=== PATIENT | female | born 1960 | race Caucasian/White ===

== ENCOUNTER 2020-10-04 10:19 | Outpatient (REF) | payer BC, SELFPAY ==
[2020-10-04 14:08] LABS: MANUAL DIFF FLAG NO
[2020-10-04 14:16] LABS: Basophils Percent Auto 0.5 % (0-2); Eosinophils Absolute Auto 0.3 X10*3/uL (0.0-0.4); Eosinophils Percent Auto 3.1 % (0-4); Hematocrit 41.3 % (37-47); Hemoglobin 13.1 g/dl (12.0-16.0); Imm Gran Abs Auto 0.04 X10*3/uL (0.00-0.03); Imm Gran Pct Auto 0.5 % (0.0-0.4); Lymphocytes Absolute Auto 2.4 X10*3/uL (1.2-4.9); Lymphocytes Percent Auto 28.7 % (20-40); Mean Corpuscular HGB Conc 31.7 g/dl (31.0-35.0); Mean Platelet Volume 9.1 fL (9.4-12.3); Monocytes Absolute Auto 0.6 X10*3/uL (0.1-1.2); Neutrophils Percent Auto 60.2 % (45-73); Platelet Count 386 X10*3/uL (160-400); Red Blood Count 4.86 X10*6/uL (4.20-5.50); Red Cell Distribution Width 14.2 % (11.0-16.0); White Blood Count 8.4 X10*3/uL (4.8-10.8)
[2020-10-04 14:51] LABS: Alanine Aminotransferase 16 U/L (0-31); Albumin Level 4.3 g/dL (3.5-5.0); Alkaline Phosphatase 87 U/L (39-117); Anion Gap 12 (12-20); Aspartate Amino Transferase 15 U/L (5-31); Bilirubin Total 0.4 mg/dL (0.0-1.0); Blood Urea Nitrogen 15 mg/dL (9-16); Calcium 9.2 mg/dL (8.4-10.2); Carbon Dioxide 32 mmol/L (22-29); Chloride 104 mmol/L (96-108); Cholesterol 168 mg/dL; Estimated Glomerular Filt Rate > 60; Glucose Fasting 94 mg/dL (60-99); HDL Cholesterol 35 mg/dL; LDL Cholesterol Calculated 83 mg/dl; Potassium 4.2 mmol/l (3.3-5.1); Sodium 144 mmol/L (135-145); Total Protein 7.2 g/dL (6.5-8.0); Triglycerides 254 mg/dL
[2020-10-04 14:54] LABS: TSH reflex Free T4 0.95 mIU/mL (0.32-4.0); Vitamin D 25-OH Total 44.2 ng/mL (>30)
[2020-10-04 15:08] LABS: Estimated Average Glucose 120 mg/dL; Hemoglobin A1c % 5.8 %
[2020-10-04 15:36] LABS: Folate 18.6 ng/mL (> or = 4.0); Vitamin B12 375 pg/mL (200-900)
== END 2020-10-04 10:20 | disposition home or self-care (01) ==
LOC: HO.HMGCLDS 10:19
PROVIDERS: PCP Internal Medicine; Visit Provider Internal Medicine
DX: R06.02 Shortness of breath (principal); R00.2 Palpitations; R73.01 Impaired fasting glucose; E78.1 Pure hyperglyceridemia; I10 Essential (primary) hypertension
CPT/HCPCS: 36415; 80053; 80061; 82306; 82607; 82746; 83036; 84443; 85025

== ENCOUNTER → 2020-11-21 12:50 | Outpatient (REF) | payer BC, SELFPAY ==
--- NOTE | 2020-11-21 12:54 | ECG_ITS ---
Hook-up date: 2020-11-21 13:07:00 Duration: 43:03:00 Test Indications: PALPITATIONS Medications: 386162 QRS complexes 15 Ventricular ectopics which represent <1 % of total QRS comp. 1 Supraventricular ectopics which represent <1 % of total QRS comp. * Paced QRS complexs which represent % of total QRS comp. VENTRICULAR ECTOPY 15 Isolated 0 Bigeminal Cycles 0 Couplets 0 Runs 0 Beats in Runs * Beats LONGEST at * BPM at :: -- * Beats FASTEST at * BPM at :: -- SUPRAVENTRICULAR ECTOPY 1 Isolated 0 Couplets 0 Runs 0 Beats in Runs * Beats LONGEST at * BPM at :: -- * Beats FASTEST at * BPM at :: -- HEART RATES 67 MIN at 05:41:58 2020-11-22 107 AVG 161 MAX at 10:07:34 2020-11-22 LONGEST RR 1.3920 secs at 05:40:21 2020-11-22 S-T LEVELS Channel 1 - 128 mm at 13:07:00 2020-11-21 - 128 mm at 13:07:00 2020-11-21 Channel 2 - 128 mm at 13:07:00 2020-11-21 - 128 mm at 13:07:00 2020-11-21 Channel 3 - 128 mm at 03:22:61 -- - 128 mm at 03:22:61 Underlying rhythm is sinus with an average rate of 107/min; range 67-161/min; About 70% of the time, ventricular rate >100/min; Very rare PVCs; Racing , winded , tired in patient diary associated with sinus tachycardia. Referred By: Olesya Fairbanks Overread By: BRIANNA GARCÍA
== END ==
LOC: HO.CARD 12:50
PROVIDERS: PCP Internal Medicine; Visit Provider Internal Medicine
DX: R06.02 Shortness of breath (principal); R00.2 Palpitations
CPT/HCPCS: 93225; 93226

== ENCOUNTER 2021-04-05 08:47 | Outpatient (REF) | payer BC, SELFPAY ==
[2021-04-05 11:54] LABS: Cholesterol 173 mg/dL; HDL Cholesterol 32 mg/dL; LDL Cholesterol Calculated 90 mg/dl; Triglycerides 258 mg/dL
== END 2021-04-05 08:48 | disposition home or self-care (01) ==
LOC: HO.HMGCLDS 08:47
PROVIDERS: PCP Internal Medicine; Visit Provider Internal Medicine
DX: E78.1 Pure hyperglyceridemia (principal)
CPT/HCPCS: 36415; 80061

== ENCOUNTER 2021-09-14 11:03 | Outpatient (REF) | payer BC, SELFPAY ==
[2021-09-14 12:50] LABS: Alanine Aminotransferase 21 U/L (0-31); Anion Gap 8 (12-20); Aspartate Amino Transferase 17 U/L (5-31); Blood Urea Nitrogen 17 mg/dL (9-16); Calcium 9.4 mg/dL (8.4-10.2); Carbon Dioxide 30 mmol/L (22-29); Chloride 109 mmol/L (96-108); Cholesterol 163 mg/dL; Estimated Glomerular Filt Rate > 60; Glucose Fasting 103 mg/dL (60-99); HDL Cholesterol 32 mg/dL; LDL Cholesterol Calculated 91 mg/dl; Potassium 4.4 mmol/L (3.3-5.1); Sodium 143 mmol/L (135-145); Triglycerides 203 mg/dL
[2021-09-14 13:01] LABS: Vitamin D 25-OH Total 42.6 ng/mL (>30)
== END 2021-09-14 11:04 | disposition home or self-care (01) ==
LOC: HO.HMGCLDS 11:03
PROVIDERS: PCP Internal Medicine; Visit Provider Internal Medicine
DX: E66.01 Morbid (severe) obesity due to excess calories (principal); R73.01 Impaired fasting glucose; E78.1 Pure hyperglyceridemia; I10 Essential (primary) hypertension
CPT/HCPCS: 36415; 80048; 80061; 82306; 84450; 84460

== ENCOUNTER 2021-09-19 10:18 | Outpatient (REF) | payer BC, SELFPAY ==
[2021-09-25 03:12] LABS: HPV mRNA E6/E7 rflx Not Detected (Not Detected)
== END 2021-09-19 10:19 | disposition home or self-care (01) ==
LOC: HO.HMGCLDS 10:18
PROVIDERS: Internal Medicine; Visit Provider Internal Medicine
DX: Z01.419 Encounter for gynecological examination (general) (routine) without abnormal findings (principal); Z11.51 Encounter for screening for human papillomavirus (HPV); Z20.822 Contact with and (suspected) exposure to COVID-19
CPT/HCPCS: 87624; 88142; C9803; U0003; U0005

== ENCOUNTER → 2022-08-14 12:42 | Outpatient (REF) | payer BC, SELFPAY | LOC: HO.SL 12:42 | PROVIDERS: PCP Internal Medicine; Visit Provider Nurse Practitioner Family | DX: Z13.89 Encounter for screening for other disorder (principal) ==

== ENCOUNTER → 2022-08-27 09:02 | Outpatient (REF) | payer BC, SELFPAY | LOC: HO.SL 09:02 | PROVIDERS: PCP Internal Medicine; Visit Provider Nurse Practitioner Family | DX: G47.33 Obstructive sleep apnea (adult) (pediatric) (principal); R40.0 Somnolence; I10 Essential (primary) hypertension; Z99.89 Dependence on other enabling machines and devices | CPT/HCPCS: 95806 ==

== ENCOUNTER → 2022-11-18 20:30 | Outpatient (REF) | payer BC, SELFPAY | LOC: HO.SL 20:30 | PROVIDERS: PCP Internal Medicine; Visit Provider Nurse Practitioner Family | DX: G47.33 Obstructive sleep apnea (adult) (pediatric) (principal); Z99.89 Dependence on other enabling machines and devices | CPT/HCPCS: 95811 ==

== ENCOUNTER → 2022-12-03 09:33 | Outpatient (BNVA) | payer BC, SELFPAY | PROVIDERS: PCP Internal Medicine; Visit Provider Nurse Practitioner Family | DX: Z13.89 Encounter for screening for other disorder (principal) ==

== ENCOUNTER → 2023-03-04 08:55 | Outpatient (BNVA) | payer BC, SELFPAY | PROVIDERS: PCP Internal Medicine; Visit Provider Nurse Practitioner Family ==

== ENCOUNTER 2023-07-30 11:34 | Outpatient (AMB) | payer BC, SELFPAY ==
[2023-07-30 11:58] VITALS: BP 148/90; PULSE 93; O2SAT 97; BMI 43.2
--- NOTE | 2023-07-30 11:58 | MHC.PC.OV ---
Vital Signs 07/30/23 11:58 Height 5 ft 2 in Weight 236 lb BMI 43.2 BP 148/90 H Blood Pressure Location Lt brachial Position Sitting Pulse 93 Pulse Source Pulse Oximeter Pulse Oximetry (%) 97 Oxygen Delivery Method Room Air Intake Visit Reasons: BP check Intake Note: pt is here for a BP check she has been with out BP medications pt has not been seen since 12/04 Allergies No Known Allergies Allergy (Mild, Verified 11/05/23 02:33) NONE Medication List - Last Reconciled 07/30/23 by Olesya Fairbanks MD cholecalciferol (vitamin D3) 50 mcg PO DAILY cyclosporine 0.05% (Restasis) 1 drp ophthalmic (eye) BID glucosamine HCl 500 mg PO DAILY lisinopril 20 mg PO DAILY loratadine 10 mg PO DAILY meloxicam mg PO omeprazole 20 mg PO QAM tizanidine 2 mg PO TID Tobacco use date assessed: 07/30/23 Dental Screening Dental Screen Date: 07/30/23 Did you have a dental visit in the last 12 months?: Yes Did you have a dental problem in the last 6 months where you did not have access to dental care?: No Was dental information given to patient?: Patient has dentist HPI BP check HPI Details 63-year-old lady here today for follow-up. She has hypertension, previously was on metoprolol succinate ER 100 mg mg daily but ran out of her medication for several months now. She denies any acute chest pain, no headache, no dizziness or shortness of breath PFSH Medical History Trigger thumb of right hand Varicose veins of right lower extremity with pain Morbid obesity Patellofemoral arthritis Rotator cuff tear, right Left carpal tunnel syndrome Gallstone pancreatitis Impaired fasting glucose Hypertriglyceridemia DENYS on CPAP GERD (gastroesophageal reflux disease) Essential hypertension Surgical History History of carpal tunnel surgery History of arthroscopy of right shoulder H/O medial meniscus repair of right knee History of right hip replacement H/O colonoscopy History of cholecystectomy Family History Father Multiple sclerosis Alzheimer disease Diabetes Congestive heart failure Mother Breast cancer Ovarian cancer Hypertension Maternal Aunt Breast cancer Maternal Grandmother Breast cancer Daughter Mental health disorder History of fundoplication Social History Housing: House Alcohol intake: never Patient Tobacco Use Status: Never used Tobacco e-Cigarette/Vaping Use: Never Used Second Hand Smoke Exposure: No service: No Current occupational status: employed 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 Stevan Winston, Mari Wallis, Rusty Griffin and colleagues, with an educational erica from [employer]. Review of Systems Const Reports as per HPI Eyes Denies change in vision ENT Reports Normal hearing present, Denies dizziness, Denies nasal congestion, Denies tinnitus, Denies sinus pain, Denies sinus pressure and Denies sore throat Card Denies chest pain with activity, Denies irregular heart rhythm and Denies radiating jaw, neck or arm pain Resp Denies cough and Denies pain on inspiration GI Denies abdominal pain, Denies bloating, Denies heartburn and Denies nausea Reports no additional complaints Musc Denies myalgias, Denies arthralgias, Denies joint swelling and Denies muscle weakness Neuro Reports Normal hearing present, Denies dizziness, Denies lack of coordination, Denies focal weakness and Denies Sensory deficit (Neuro) Psych Denies anxiety, Denies depression, Denies irritability and Denies panic attacks Endo Denies polyphagia and Denies polydipsia Félix/Lymph Denies easy bleeding and Denies easy bruising Physical exam (Primary Care) Vital Signs: Last Vital Signs Pulse 93 07/30/23 11:58 BP 148/90 H 07/30/23 11:58 Pulse Ox 97 07/30/23 11:58 Oxygen Delivery Method Room Air 07/30/23 11:58 BMI result Body Mass Index 43.2 BMI Assessment/Plan discussion: High BMI High, discussed plan: lifestyle Tobacco/Smoking Status: Tobacco use Status Tobacco use date assessed 07/30/23 07/30/23 12:05 Patient Tobacco Use Status Never used Tobacco 07/30/23 12:01 e-Cigarette/Vaping Use Never Used 07/30/23 12:01 Thrive Assessment: Date of Thrive Assessment Date Thrive assessed 09/19/21 07/30/23 12:01 Const General: no acute distress, alert and awake Nutritional Appearance: obese morbidly obese Orientation/consciousness: patient oriented x3 Eyes General: appearance normal, both eyes and all related structures Neck Neck: Yes full ROM, Yes no lymphadenopathy and Yes supple Thyroid: Thyroid normal Resp Auscultation: clear to auscultation bilaterally Cardio Palpation: normal PMI Rate: regular rate Rhythm: regular rhythm Heart sounds: S1 normal heart sound present and S2 normal heart sound present GI Inspection: Yes normal to inspection and Yes Abdominal panniculus present Auscultation: normal bowel sounds Neuro General: patient oriented x3, gait normal, tone normal, moves all extremities, Normal light touch and pain sensation and no focal motor deficits Cranial nerves: Yes Normal hearing present Sensory Exam: No Sensory deficit (Neuro) Extrem General: Yes full ROM and Yes no joint enlargement Assessment and Plan Assessment & Plan (1) Essential hypertension: Code(s): I10 - Essential (primary) hypertension Plan: Refill prescription sent for metoprolol succinate 100 mg 1 daily, and added lisinopril 20 mg once a day . Fasting labs ordered to check basic metabolic panel lipid panel. Reinforced importance of following a low-salt diet and getting regular exercise. Return to clinic in 2 weeks to check blood pressure Orders: Orders Basic Metabolic Panel Fasting 07/30/23 E78.1 - Pure hyperglyceridemia, I10 - Essential (primary) hypertension Lipid Panel 07/30/23 E78.1 - Pure hyperglyceridemia, I10 - Essential (primary) hypertension Medications: New lisinopril 20 mg PO DAILY Changed From metoprolol succinate ER schedule PCP appt for future refills 100 mg PO DAILY 90 tabs 0RF R00.2 - Palpitations, I10 - Essential (primary) hypertension To metoprolol succinate ER 100 mg PO DAILY 90 tabs 1RF R00.2 - Palpitations, I10 - Essential (primary) hypertension Coding Level of Care Code Est Pt Level 3 (41070) Diagnoses Essential hypertension I10
== END 2023-07-30 14:34 | disposition home or self-care (01) ==
PROVIDERS: PCP Internal Medicine; Visit Provider Internal Medicine
DX: I10 Essential (primary) hypertension (principal)
CPT/HCPCS: 99213

== ENCOUNTER 2023-08-13 09:56 | Outpatient (AMB) | payer BC, SELFPAY ==
[2023-08-13 11:05] VITALS: BP 148/72; PULSE 93; O2SAT 96
--- NOTE | 2023-08-13 11:05 | AM.OFFVISNUR ---
Intake Vital Signs 08/13/23 11:05 08/13/23 11:18 BP 148/72 H 142/70 H Blood Pressure Location Rt brachial Lt brachial Position Sitting Sitting Pulse 93 Pulse Source Pulse Oximeter Pulse Oximetry (%) 96 Oxygen Delivery Method Room Air Intake Visit Reasons: BP Check Intake Note: Pt is here today for a B/P check and a flu vaccine Allergies No Known Allergies Allergy (Mild, Verified 07/30/23 12:15) NONE Office Procedures Flu Questionnaire Does the patient have a severe egg allergy?: No Does the patient have severe life threatening allergies?: No Does the patient have a fever or illness today?: No Has the patient ever had Guillain-[place] Syndrome?: No Has the patient ever had any past reaction to a flu shot?: No Immunizations flu vacc [id number] 6mos up(PF) 60 mcg(15 mcgx4)/0.5 mL IM syringe Performing Provider: Olesya Fairbanks MD [facility] Administered by: Keily Rao CMA on 08/13/23 11:16 Dose Route Admin Location Dispensed Lot Number Expiration Date NDC Cloth Beamer 0.5 mL IM Left Deltoid 0.5 mL [id number] 03/14/24 [id number] [employer] VIS Given Date VIS Provided VIS Publication Date 08/13/23 Single Vaccine 21 Eligibility Eligibility Date Funding Source Not [facility] Eligible 08/13/23 Private Coding Assessment & Plan Assessment & Plan Orders: Orders Influenza [id number] Immunization Today Z23 - Encounter for immunization
[2023-08-13 11:18] VITALS: BP 142/70
== END 2023-08-13 11:51 | disposition home or self-care (01) ==
PROVIDERS: PCP Internal Medicine; Visit Provider Internal Medicine
DX: Z23 Encounter for immunization (principal)
CPT/HCPCS: 90471; 90686

== ENCOUNTER 2023-09-29 12:58 | Outpatient (AMB) | payer BC, SELFPAY ==
[2023-09-29 13:58] VITALS: BP 150/100; PULSE 86; TEMP 36.3; O2SAT 96
--- NOTE | 2023-09-29 13:58 | AM.OFFWIN_ITS ---
Intake Vital Signs 09/29/23 13:58 Height 5 ft 2 in BMI Reason not done Patient refused/unable BP 150/100 H Blood Pressure Location Lt brachial Position Sitting Pulse 86 Pulse Source Pulse Oximeter Temp 97.3 F Temp Source Temporal Artery Scan Pulse Oximetry (%) 96 Oxygen Delivery Method Room Air Intake Visit Reasons: EST/sinus infection ([phone]) Intake Note: pt is here for c.o possible sinus infection, sinus pressure with greenish phelm 1 week Patient Tobacco Use Status: Never used Tobacco Allergies No Known Allergies Allergy (Mild, Verified 09/29/23 13:59) NONE Do you need a note to return to daycare/school/sports/work: No HPI HPI Comments History of Present Illness Details 63-year-old female history of GERD, hypo thyroidism, obesity, DENYS on CPAP, hypertension presenting for evaluation of fatigue, malaise, sinus pressure, congestion, patient reports she is having yellow/green discharge from her nose and she feels like she has having a sinus infection. Patient has history of this in the past and it feels similar. Denies chest pain, shortness breath, fevers chills, cough, nausea, vomiting, abdominal pain, diarrhea. Physical exam significant for Discomfort to face with forward bending and discomfort palpation of facial sinuses History and physical exam concerning for sinusitis is most likely. Other differentials include viral illness flu versus COVID versus RSV. Unlikely meningitis, encephalitis, intracranial hemorrhage, stroke, posterior stroke, pneumonia, PE, ACS. Plan at this time will discharge on Augmentin, prednisone. Educated patient on diagnosis and treatment plan, answered all question, patient verbalizes understanding. At this time patient will be discharged home, advised to return with new or worsening symptoms. Educated on worrisome signs and symptoms and when to return. At this time I feel comfortable discharge home. [facility] Medical History Trigger thumb of right hand Varicose veins of right lower extremity with pain Morbid obesity Patellofemoral arthritis Rotator cuff tear, right Left carpal tunnel syndrome Gallstone pancreatitis Impaired fasting glucose Hypertriglyceridemia DENYS on CPAP GERD (gastroesophageal reflux disease) Essential hypertension Surgical History History of carpal tunnel surgery History of arthroscopy of right shoulder H/O medial meniscus repair of right knee History of right hip replacement H/O colonoscopy History of cholecystectomy Family History Father Multiple sclerosis Alzheimer disease Diabetes Congestive heart failure Mother Breast cancer Ovarian cancer Hypertension Maternal Aunt Breast cancer Maternal Grandmother Breast cancer Daughter Mental health disorder History of fundoplication Social History Housing: House Alcohol intake: never Patient Tobacco Use Status: Never used Tobacco e-Cigarette/Vaping Use: Never Used Second Hand Smoke Exposure: No service: No Current occupational status: employed 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 Oriented X3.? No acute distress.? Head: Normocephalic, atraumatic, no step-offs or deformities. Discomfort to face with forward bending and discomfort palpation of facial sinuses Eyes: Pupils equal, round and reactive to light.?? Neck: Normal inspection.? Neck supple.? CVS: Normal heart rate and rhythm.? Pulses normal.? Respiratory: No respiratory distress.? Breath sounds normal.? Abdomen: Soft and nontender.? Skin: Skin warm and dry.? Normal skin color.? Normal skin turgor.? Extremities: No lower extremity edema.? No calf ttp. 5/5 strength to bilateral upper and lower extremities Neuro: Oriented X 3.? No motor deficit.? No sensory deficit. CN 2-12 intact Assessment & Plan Assessment & Plan (1) Sinusitis: Code(s): J32.9 - Chronic sinusitis, unspecified Plan Take your medications as prescribed. If you were prescribed antibiotics today, it is important that you take your medication to their entirety, do not skip any doses, do not finish them early. Follow-up with your primary care provider this week. Return to the emergency department with new or worsening symptoms. Such as fevers, chills, chest pain, shortness of breath, nausea, vomiting, dizziness, headache, vision changes, lethargy In case of emergency call 911 Medications: New amoxicillin-pot clavulanate 875-125 mg 1 tab PO BID 20 tabs 0RF 10 days prednisone 40 mg (2 x 20 mg) PO DAILY 10 tabs 0RF 5 days Coding Level of Care Code Est Pt Level 3 (34010) Diagnoses Sinusitis J32.9
== END 2023-09-29 14:12 | disposition home or self-care (01) ==
PROVIDERS: PCP Internal Medicine; Visit Provider Physician Assistant
DX: J32.9 Chronic sinusitis, unspecified (principal)
CPT/HCPCS: 99213

== ENCOUNTER 2023-11-08 09:31 | Outpatient (REF) | payer BC, SELFPAY ==
[2023-11-08 11:22] LABS: Estimated Average Glucose 140 mg/dL; Hemoglobin A1c % 6.5 % (<6.0)
[2023-11-08 11:43] LABS: Anion Gap 15 (12-20); Blood Urea Nitrogen 13 mg/dL (9-16); Calcium 9.2 mg/dL (8.4-10.2); Carbon Dioxide 27 mmol/L (22-29); Chloride 105 mmol/L (96-108); Cholesterol 207 mg/dL (<200); Estimated Glomerular Filt Rate > 60; Glucose Fasting 106 mg/dL (60-99); HDL Cholesterol 32 mg/dL (>40); Potassium 4.6 mmol/L (3.3-5.1); Sodium 142 mmol/L (135-145); Triglycerides 410 mg/dL (<150)
== END 2023-11-08 09:32 | disposition home or self-care (01) ==
LOC: HO.HMGCLDS 09:31
PROVIDERS: PCP Internal Medicine; Visit Provider Internal Medicine
DX: E78.1 Pure hyperglyceridemia (principal); I10 Essential (primary) hypertension; R73.01 Impaired fasting glucose
CPT/HCPCS: 36415; 80048; 80061; 83036

== ENCOUNTER 2023-11-12 08:30 | Outpatient (AMB) | payer BC, SELFPAY ==
[2023-11-12 08:33] VITALS: BP 110/70; PULSE 84; O2SAT 98; BMI 43.0
--- NOTE | 2023-11-12 08:33 | A.OFFPC_ITS ---
Vital Signs 11/12/23 08:33 Height 5 ft 2 in Weight 235 lb BMI 43.0 BP 110/70 Blood Pressure Location Rt brachial Position Sitting Pulse 84 Pulse Source Pulse Oximeter Pulse Oximetry (%) 98 Oxygen Delivery Method Room Air Intake Visit Reasons: Annual PE - due for Colorectal Cancer Screening Intake Note: Pt is here today for her PE:last mammogram 07/30/22, papsmear 09/20/21, colonoscopy 07/26/15' Pt wants to wait another year for her papsmear Allergies No Known Allergies Allergy (Mild, Verified 11/12/23 08:49) NONE Medication List - Last Reconciled 11/12/23 by Olesya Fairbanks MD cholecalciferol (vitamin D3) 50 mcg PO DAILY cyclosporine 0.05% (Restasis) 1 drp ophthalmic (eye) DAILY hydrochlorothiazide 12.5 mg PO QAM lisinopril 20 mg PO DAILY loratadine 10 mg PO DAILY meloxicam 15 mg PO DAILY metoprolol succinate ER 100 mg PO DAILY omeprazole 20 mg PO QAM tizanidine 2 mg PO TID PRN Tobacco use date assessed: 11/12/23 Dental Screening Dental Screen Date: 11/12/23 Did you have a dental visit in the last 12 months?: Yes Did you have a dental problem in the last 6 months where you did not have access to dental care?: No Was dental information given to patient?: Patient has dentist HPI Annual PE - due for Colorectal Cancer Screening HPI Details 63-year-old lady here today for physical exam. She: She is overdue for mammogram last done 07/30/22, last cervical cancer screening was done 09/20/2021, and last colonoscopy done 07/26/2015 at [facility] showed 1 polyp which was removed and turned out to be adenomatous. She is overdue for a repeat colonoscopy. She has hypertension currently on lisinopril, hydrochlorothiazide and metoprolol, but has been having a dry cough with lisinopril and would like to see if she can combined some of these medications well as have last her tablets to take. Blood pressure today is within normal limits. Recent fasting labs done showed presence of elevated fasting blood sugar and triglycerides above 400, with low good cholesterol. She has not been following any particular diet and admits to not getting any regular exercise on account of her bad knees. She also has sleep apnea, currently on CPAP. [facility] Medical History (Updated 11/12/23 @ 23:26 by Olesya Fairbanks MD) Seasonal allergies Chronic low back pain Adenomatous polyp of colon Cough due to KAYLAH inhibitor Trigger thumb of right hand Varicose veins of right lower extremity with pain Morbid obesity Patellofemoral arthritis Rotator cuff tear, right Left carpal tunnel syndrome Gallstone pancreatitis Impaired fasting glucose Hypertriglyceridemia DENYS on CPAP GERD (gastroesophageal reflux disease) Essential hypertension Surgical History History of carpal tunnel surgery History of arthroscopy of right shoulder H/O medial meniscus repair of right knee History of right hip replacement H/O colonoscopy History of cholecystectomy Family History Father Multiple sclerosis Alzheimer disease Diabetes Congestive heart failure Mother Breast cancer Ovarian cancer Hypertension Maternal Aunt Breast cancer Maternal Grandmother Breast cancer Daughter Mental health disorder History of fundoplication Social History Housing: House Alcohol intake: never Patient Tobacco Use Status: Never used Tobacco e-Cigarette/Vaping Use: Never Used Second Hand Smoke Exposure: No service: No Current occupational status: employed 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 1. Little interest or pleasure in doing things: not at all 2. Feeling down, depressed, or hopeless: not at all 3. Trouble falling or staying asleep, or sleeping too much: not at all 4. Feeling tired or having little energy: several days 5. Poor appetite or overeating: not at all 6. Feeling bad about yourself - or that you are a failure or have let yourself or your family down: not at all 7. Trouble concentrating on things, such as reading the newspaper or watching television: not at all 8. Moving or speaking so slowly that other people could have noticed. Or the opposite - being so fidgety or restless that you have been moving around a lot more than usual: not at all 9. Thoughts that you would be better off or of hurting yourself in some way: not at all Total score: 1 Depression Screening Interpretation: Negative Depression Screening Done: Yes 31918 - PHQ-9 Billing: Yes Source: Developed by Drs. Stevan Winston, Mari Wallis, Rusty Griffin and colleagues, with an educational erica from [employer]. Thrive Questionnaire Date Thrive assessed: 11/12/23 I am a: Patient What is your living situation today?: I have a steady place to live Within the past 12 months, did the food you bought not last and you didn't have the money to get more?: Never true Within the past 12 months, did you worry whether your food would run out before you got money to buy more?: Never true Do you have trouble paying for medicines?: No Do you have trouble getting transportation to medical appointments?: No Do you have trouble paying your heating and electricity bill?: No Do you have trouble taking care of your child, family member or friend?: No Do you have trouble with day-to-day activities such as bathing, preparing meals, shopping, managing finances, etc.?: No Are you currently unemployed and looking for a job?: No Are you interested in more education?: No THRIVE Score: 0 AUDIT C Alcohol Use Questionnaire (AUDIT-C) 1. How often do you have a drink containing alcohol?: Never Total Score: 0 YADIEL-7 AMB Questionnaire YADIEL-7 Date YADIEL - 7 assessed: 11/12/23 Feeling nervous, anxious, or on edge: 0 = Not at all Not being able to stop or control worryin = Not at all Worrying too much about different things: 0 = Not at all Trouble relaxin = Not at all Being so restless that it is hard to sit still: 0 = Not at all Becoming easily annoyed or irritable: 0 = Not at all Feeling afraid as if something awful might happen: 0 = Not at all Total YADIEL-7 score (0-4 normal; 5-9 mild; 10-14 moderate; 15-21 severe): 0 Source: Developed by Drs. Stevan Winston, Mari Wallis, Rusty Griffin and colleagues, with an educational erica from [employer]. YADIEL-7 Assessment Billing YADIEL-7 Assessment Tool: YADIEL-7 Assessment 13479 Review of Systems Const Reports as per HPI Eyes Denies change in vision ENT Reports Normal hearing present, Denies dizziness, Denies nasal congestion, Denies tinnitus, Denies sinus pain, Denies sinus pressure and Denies sore throat Card Denies chest pain with activity, Denies irregular heart rhythm and Denies radiating jaw, neck or arm pain Resp Denies pain on inspiration GI Denies abdominal pain, Denies bloating, Denies heartburn and Denies nausea Reports no additional complaints and Denies nipple discharge Musc Denies joint swelling and Denies muscle weakness Skin/Breast Denies breast skin changes, Denies breast mass, Denies dry skin, Denies nipple discharge and Denies rash Neuro Reports Normal hearing present, Denies dizziness, Denies lack of coordination, Denies focal weakness and Denies Sensory deficit (Neuro) Psych Denies anxiety, Denies depression, Denies irritability and Denies panic attacks Endo Denies polyphagia and Denies polydipsia Félix/Lymph Denies easy bleeding and Denies easy bruising Aller/Immun Reports no additional complaints Physical exam (Primary Care) Vital Signs: Last Vital Signs Pulse 84 11/12/23 08:33 BP 110/70 11/12/23 08:33 Pulse Ox 98 11/12/23 08:33 Oxygen Delivery Method Room Air 11/12/23 08:33 BMI result Body Mass Index 43.0 BMI Assessment/Plan discussion: High BMI High, discussed plan: lifestyle Tobacco/Smoking Status: Tobacco use Status Tobacco use date assessed 11/12/23 11/12/23 08:40 Patient Tobacco Use Status Never used Tobacco 11/12/23 08:33 e-Cigarette/Vaping Use Never Used 11/12/23 08:33 PHQ-9: PHQ-9 Score PHQ-9: Total score 1 11/12/23 10:03 Depression Screening Interpretation: Negative Thrive Assessment: Date of Thrive Assessment Date Thrive assessed 11/12/23 11/12/23 10:03 Const General: no acute distress, alert and awake Nutritional Appearance: obese morbidly obese Orientation/consciousness: patient oriented x3 HENMT Head: Yes normocephalic Ears: external ears normal, TM's normal bilaterally and EAC's normal General nose exam: Normal external nose present Face and sinus: Yes face symmetric Mouth: Normal oral and palatal mucosa present, oropharynx normal and moist mucous membranes Eyes General: appearance normal, both eyes and all related structures Neck Neck: Yes full ROM, Yes no lymphadenopathy and Yes supple Thyroid: Thyroid normal Chest Breast/axilla inspection: normal inspection of the breasts Breast/axilla palpation: normal palpation of the breasts Resp Auscultation: clear to auscultation bilaterally Cardio Palpation: normal PMI Rate: regular rate Rhythm: regular rhythm Heart sounds: S1 normal heart sound present and S2 normal heart sound present GI Inspection: Yes normal to inspection and Yes Abdominal panniculus present Auscultation: normal bowel sounds General: Yes deferred Neuro General: patient oriented x3, gait normal, tone normal, moves all extremities, Normal light touch and pain sensation and no focal motor deficits Cranial nerves: Yes Normal hearing present Sensory Exam: No Sensory deficit (Neuro) Extrem General: Yes full ROM and Yes no joint enlargement Psych Appearance: grossly normal and well kempt Mental Status: mental status grossly normal Speech and movement: Normal speech and movement present and Clear speech present Affect: normal affect Thought process: Normal thought process present Thought content: Normal thought content present Results Reviewed Results Reviewed: RUN: 11/12/2347 PAGE 1 [facility] [address] [place] [id number] Management Rep: Pranay Gallardo M.D. Specimen Inquiry Name: Winter Duron Age/Sex: 63/F : 1960 Unit#: [id number] Attend Dr: Olesya Fairbanks MD Re11/08/23 Status: DEP [facility] Disch: SPEC : [id number] GAEL: 11/08/23 STATUS: COMP REQ : [id number] RECD: 11/08/[address]: Olesya Fairbanks MD COMP: 11/08/23-1143 ENTERED: 11/08/23-[address] [facility] [address]: ORDERED: Met Prof Fast, Lipid Panel Test Result Flag Reference Sodium 142 135-145 mmol/L Potassium 4.6 3.3-5.1 mmol/L CL 105 96-108 mmol/L CO2 27 22-29 mmol/L Gap 15 12-20 BUN 13 9-16 mg/dL Creat 0.72 0.5-1.4 mg/dL EGFR > 60 NOTE: For -[place] individuals, multiply the result by 1.210. Chronic Kidney Disease: Estimated GFR < 60 mL/min/1.73m2 Severe Kidney Disease: Estimated GFR < 15 mL/min/1.73m2 FBS 106 H 60-99 mg/dL A fasting glucose from 100-125 mg/dl is considered impaired (pre-diabetes). CA 9.2 8.4-10.2 mg/dL Triglyceride 410 H <150 mg/dL Desirable Triglyceride: less than 150 mg/dL Borderline High Triglyceride 150-199 mg/dL High Triglyceride: 200-499 mg/dL Very High Triglyceride: greater than or equal to 5OO mg/dL Cholesterol 207 H <200 mg/dL Desirable Cholesterol: less than 200 mg/dL Borderline High Cholesterol: 200-239 mg/dL High Cholesterol: greater than 239 mg/dL LDL Calculated Test not performed <100 mg/dL Unable to calculate the LDL. The formula of Friedwald, Orozco, and Nahum is only valid if the triglycerides are less than 400 mg/dl. HDL 32 L >40 mg/dL Desirable HDL: greater than 40 mg/dL Note: This HDL assay may give artificially low results in patients with liver disease. Assessment and Plan Assessment & Plan (1) Essential hypertension: Code(s): I10 - Essential (primary) hypertension Plan: Blood pressure at goal of less than 130/80. Lisinopril and hydrochlorothiazide were discontinued and was switched to losartan 100 mg-hydrochlorothiazide 12.5 m g per tablet to take once a day in a.m., continue with metoprolol at night.. Reinforced importance of following a low sodium diet, getting regular exercise, and lowering stress levels. (2) Cough due to KAYLAH inhibitor: Code(s): R05.8 - Other specified cough; T46.4X5A - Adverse effect of ldkmmosvpil-gfxrkkmsps-ffoifh inhibitors, initial encounter Plan: Lisinopril discontinued (3) Adenomatous polyp of colon: Code(s): D12.6 - Benign neoplasm of colon, unspecified Plan: Referred to GI for her repeat colonoscopy (4) Colon cancer screening: Code(s): Z12.11 - Encounter for screening for malignant neoplasm of colon (5) Hypertriglyceridemia: Code(s): E78.1 - Pure hyperglyceridemia Plan: Will start fenofibrate 120 mg per tablet to take once a day. Reinforced importance of getting regular exercise and adhering to low-cholesterol diet. (6) DENYS on CPAP: Comment: Moderate to severe degree of sleep apnea. The AHI was 22/hr and oxygen arnulfo was 84% Code(s): G47.33 - Obstructive sleep apnea (adult) (pediatric); Z99.89 - Dependence on other enabling machines and devices Plan: Continue with CPAP (7) GERD (gastroesophageal reflux disease): Code(s): K21.9 - Gastro-esophageal reflux disease without esophagitis Plan: Continue taking omeprazole 20 mg per capsule taken once a day an hour before eating (8) Morbid obesity: Code(s): E66.01 - Morbid (severe) obesity due to excess calories Plan: Stressed importance of losing weight through diet and exercise, patient does not want to be referred to medical weight loss management program at [facility]. (9) Patellofemoral arthritis: Comment: Seen by Dr. Badillo Code(s): M17.10 - Unilateral primary osteoarthritis, unspecified knee (10) Seasonal allergies: Code(s): J30.2 - Other seasonal allergic rhinitis Plan: Prescription sent for loratadine 10 mg taken once a day Orders: Orders Hemoglobin A1c 02/14/24 D12.6 - Benign neoplasm of colon, unspecified, E66.01 - Morbid (severe) obesity due to excess calories, E78.1 - Pure hyperglyceridemia, G47.33 - Obstructive sleep apnea (adult) (pediatric), K21.9 - Gastro-esophageal reflux disease without esophagitis, R05.8 - Other specified cough, T46.4X5A - Adverse effect of zovwbyrmaln-fksupyuaje-vxohmx inhibitors, initial encounter, Z99.89 - Dependence on other enabling machines and devices Lipid Panel 02/14/24 D12.6 - Benign neoplasm of colon, unspecified, E66.01 - Morbid (severe) obesity due to excess calories, E78.1 - Pure hyperglyceridemia, G47.33 - Obstructive sleep apnea (adult) (pediatric), G89.29 - Other chronic pain, K21.9 - Gastro-esophageal reflux disease without esophagitis, M17.10 - Unilateral primary osteoarthritis, unspecified knee, M54.50 - Low back pain, unspecified, R05.8 - Other specified cough, T46.4X5A - Adverse effect of bjyizjbviut-tjclkqrzid-viavxm inhibitors, initial encounter, Z99.89 - Dependence on other enabling machines and devices LDL Cholesterol Direct 02/14/24 D12.6 - Benign neoplasm of colon, unspecified, E66.01 - Morbid (severe) obesity due to excess calories, E78.1 - Pure hyperglyceridemia, G47.33 - Obstructive sleep apnea (adult) (pediatric), G89.29 - Other chronic pain, K21.9 - Gastro-esophageal reflux disease without esophagitis, M17.10 - Unilateral primary osteoarthritis, unspecified knee, M54.50 - Low back pain, unspecified, R05.8 - Other specified cough, T46.4X5A - Adverse effect of fpctwcwuhqh-hoatkapyqu-tgujco inhibitors, initial encounter, Z99.89 - Dependence on other enabling machines and devices Comprehensive [place]. Panel Fast 02/14/24 D12.6 - Benign neoplasm of colon, unspecified, E66.01 - Morbid (severe) obesity due to excess calories, E78.1 - Pure hyperglyceridemia, G47.33 - Obstructive sleep apnea (adult) (pediatric), G89.29 - Other chronic pain, K21.9 - Gastro-esophageal reflux disease without esophagitis, M17.10 - Unilateral primary osteoarthritis, unspecified knee, M54.50 - Low back pain, unspecified, R05.8 - Other specified cough, T46.4X5A - Adverse effect of cjyevnntkdv-ifldqwhnqb-xcyegj inhibitors, initial encounter, Z99.89 - Dependence on other enabling machines and devices Referrals Gastroenterology Referral D12.6 - Benign neoplasm of colon, unspecified, Z12.11 - Encounter for screening for malignant neoplasm of colon Medications: New losartan-hydrochlorothiazide 100-12.5 mg 1 tab PO DAILY 90 tabs 1RF I10 - Essential (primary) hypertension, R05.8 - Other specified cough, T46.4X5A - Adverse effect of ojmkbbxngco-inlqimxgls-bcheff inhibitors, initial encounter fenofibrate 120 mg PO DAILY 90 tabs 0RF Changed From loratadine 10 mg PO DAILY 90 tabs 3RF To loratadine 10 mg PO DAILY PRN 90 tabs 3RF allergy symptoms Discontinued hydrochlorothiazide Discontinued Reason: Doctor's Order 12.5 mg PO QAM 30 tabs 0RF Coding Level of Care Code Est Pt Prev Care 40-64y(72178) Diagnoses Essential hypertension I10 Cough due to KAYLAH inhibitor R05.8; T46.4X5A Adenomatous polyp of colon D12.6 Colon cancer screening Z12.11 Hypertriglyceridemia E78.1 DENYS on CPAP G47.33; Z99.89 GERD (gastroesophageal reflux disease) K21.9 Morbid obesity E66.01 Patellofemoral arthritis M17.10 Seasonal allergies J30.2 Additional Codes YADIEL-7 Assessment Billing - YADIEL-7 Assessment Tool: YADIEL-7 Assessment 12079 ([id number])
== END 2023-11-12 09:21 | disposition home or self-care (01) ==
PROVIDERS: PCP Internal Medicine; Visit Provider Internal Medicine
DX: Z00.00 Encounter for general adult medical examination without abnormal findings (principal); I10 Essential (primary) hypertension; E66.01 Morbid (severe) obesity due to excess calories; Z68.41 Body mass index [BMI] 40.0-44.9, adult; R05.8 Other specified cough; T46.4X5A Adverse effect of angiotensin-converting-enzyme inhibitors, initial encounter; D12.6 Benign neoplasm of colon, unspecified; Z12.11 Encounter for screening for malignant neoplasm of colon; E78.1 Pure hyperglyceridemia; G47.33 Obstructive sleep apnea (adult) (pediatric); Z99.89 Dependence on other enabling machines and devices; K21.9 Gastro-esophageal reflux disease without esophagitis
CPT/HCPCS: 99396

== ENCOUNTER 2024-01-16 | Outpatient (REF) | payer BC, SELFPAY ==
[2024-01-16 15:27] LABS: Glucose Random 180 mg/dL (60-115)
[2024-01-16 15:44] LABS: Estimated Average Glucose 163 mg/dL; Hemoglobin A1c % 7.3 % (<6.0)
== END 2024-01-16 00:01 | disposition home or self-care (01) ==
LOC: HO.LAB
PROVIDERS: PCP Internal Medicine; Visit Provider Physician Assistant Surgical
DX: E66.01 Morbid (severe) obesity due to excess calories (principal); Z68.41 Body mass index [BMI] 40.0-44.9, adult; I10 Essential (primary) hypertension; G47.30 Sleep apnea, unspecified
CPT/HCPCS: 36415; 82947; 83036; 99453

== ENCOUNTER 2024-01-16 13:50 | Outpatient (AMB) | payer BC, SELFPAY ==
--- NOTE | 2024-01-16 14:53 | HO.OFFWMMET ---
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 She is interested in weight loss as well as improving underlying morbid obesity associated conditions including hypertension and sleep apnea. After further discussion with the patient, she states that she would be interested in our Surgical weight loss program and will be referred accordingly. Weight today was noted to be 239.6 lb with a BMI of 43.8. Hemoglobin A1c was noted at 7.3 with a random glucose of 180 and average glucose of 163. She does state that she was told that she had impaired fasting glucose and her last hemoglobin A1c in October was 6.5. She states that she has a follow-up appointment with her primary care physician at the end of the month. She was advised to call her primary care physician on Friday to inform them of her most recent lab data and to see if they would like to see her sooner. She additionally was encouraged to follow the meal plan and exercise plan that she will be provided as this will significantly and positively impact her underlying diabetes. [facility] Medical History (Updated 11/12/23 @ 23:26 by Olesya Fairbanks MD) Seasonal allergies Chronic low back pain Adenomatous polyp of colon Cough due to KAYLAH inhibitor Trigger thumb of right hand Varicose veins of right lower extremity with pain Morbid obesity Patellofemoral arthritis Rotator cuff tear, right Left carpal tunnel syndrome Gallstone pancreatitis Impaired fasting glucose Hypertriglyceridemia DENYS on CPAP GERD (gastroesophageal reflux disease) Essential hypertension Surgical History History of carpal tunnel surgery History of arthroscopy of right shoulder H/O medial meniscus repair of right knee History of right hip replacement H/O colonoscopy History of cholecystectomy Family History Father Multiple sclerosis Alzheimer disease Diabetes Congestive heart failure Mother Breast cancer Ovarian cancer Hypertension Maternal Aunt Breast cancer Maternal Grandmother Breast cancer Daughter Mental health disorder History of fundoplication Social History Housing: House Alcohol intake: never Patient Tobacco Use Status: Never used Tobacco e-Cigarette/Vaping Use: Never Used Second Hand Smoke Exposure: No service: No Current occupational status: employed 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 She will be referred to Dr. Lama for an initial surgical weight loss appointment. In the meantime, she will begin plans as listed below ? Adequate sleep of 7-8 hours per night discussed, awakening at 6 am and going to bed at 11 pm ? Purchase body composition analyzer scale ([employer] recommended) and check weight weekly. The best time to do this is first thing in the morning after going to the bathroom. 1. Nutritional counseling: Be sure to careful read the number of scoops per shake Start with 2 Celebrate Rebuild shakes ([facility] [employer], [employer], [employer]), First shake (1.5 scoops in 12 oz unsweetened almond milk) at 7am-9am 2 Celebrate protein bars (Celebrate bars at [facility] [employer], [employer], [employer]) First bar at 10am-12pm. Second bar at 2pm-4pm Dinner at 6pm (8 forks of protein and 8 forks of salad/vegetables). Meal to include lean meat (beef, fish, pork, turkey, chicken), cooked vegetables or a salad with olive oil and/or fruits (berries, pears, apples, kiwi). Avoid salt, breads, potatoes, rice, pasta, desserts. Another shake with 1 scoop in 12 oz unsweetened almond milk at 8pm-10pm. Try to drink 64 oz of water daily and avoid soda and juices. ?2. Each shake would be drunk slowly, like coffee in a period of 2 hours. ?3. Cut each bar in 4 pieces and eat each piece in 30 min ?to make each bar last 2 hours. ?4. I emphasized the importance of measuring accurately the food portion and measure it carefully when serving the food on the plate ?5. The meal portions include 8 full-size forks of meat and 8 full-size forks of salad. You always eat the meat portion but you can replace up to half of the forks of salad/vegetables with rice, potatoes or pasta, or a fruit ?if you like. The less you do it the better weight loss will be. ?6. One full-size fork is what can be scooped on the fork without falling aside and not what can be bit with the fork. Use regular forks like those you find in a typical restaurant. ?7.? Please send me weight measurements as soon as possible and then once a week. Always include your diet and exercise plan. Alternatively come weekly at the office for weight checks and send me the measurements. ?8. Exercise counseling: Begin by watching a stretching for beginners video. Start slowly and begin to stretch your muscles. You should do this before and after each exercise session to prevent injury. Please join [employer] gym near your home. Ask the branch general manager or one of the trainers how to use the machines if you are unfamiliar with them. Start elliptical with a resistance of 2. Increase resistance by 1 every 3 min to your most comfortable resistance with a max resistance of 8. Reduce the resistance by 1 every 3 minutes back down to 2 and repeat cycles for 300 calories. Alternatively, start treadmill with a speed of 3.0 and incline of 0, increasing incline by 1 every 3 minutes to the highest comfortable level (max 6 for now) then decrease in the same fashion. Repeat process to a goal of 300 calories. Goal of 2000 calories burned or more weekly. You may also consider use of the stationary bike. The easiest would be to chose the fat-burn or interval training program on the machine and do this until you reach the 300 calorie goal. Alternatively, you can manually adjust the resistance in a similar fashion as mentioned above, (resistance of 2-8 with a goal speed of 12 mph). Tracking calories is essential. 9. Alternatively start walking outside daily, tracking calories with a goal of 300 calories per day, daily. You can download the vasile [employer] which can track your time, distance and calories while walking outside. You press start in the vasile when you start and then stop when you are finished. 10.? It is important to text weekly with your weight and if you are having any problems. 11. [facility] will call you to set up an appointment with Dr Lama 12. Please call your PCP on Friday to discuss the latest labs that were done in the office today, especially the hemoglobin A1c of 7.3 13. Please follow the diet plan exactly, without any change. If you do not like something about the plan or you feel hungry, you need to communicate with me so I can help you revise the plan. You should not change the plan yourself. Text me at [phone] 14. Goal is to lose at least 12 pounds in the first month Patient is morbidly obese and is not considered stable at this time.?I spent a total of 70 minutes reviewing/updating records, examining the patient and counseling the patient on weight management as detailed above. Orders: Orders Glucose Random Today E66.01 - Morbid (severe) obesity due to excess calories Hemoglobin A1c Today E66.01 - Morbid (severe) obesity due to excess calories
[2024-01-16 15:13] VITALS: BP 147/69; PULSE 93; TEMP 36.2; O2SAT 98; BMI 43.8
== END 2024-01-16 18:10 | disposition home or self-care (01) ==
LOC: HO.META 13:50
PROVIDERS: PCP Internal Medicine; Visit Provider Physician Assistant Surgical
DX: E66.01 Morbid (severe) obesity due to excess calories (principal)

== ENCOUNTER 2024-02-06 08:50 | Outpatient (REF) | payer BC, SELFPAY ==
[2024-02-06 10:40] LABS: Estimated Average Glucose 154 mg/dL
[2024-02-06 11:10] LABS: Alanine Aminotransferase 22 U/L (0-31); Albumin Level 4.2 g/dL (3.5-5.0); Alkaline Phosphatase 55 U/L (39-117); Anion Gap 12 (12-20); Aspartate Amino Transferase 18 U/L (5-31); Bilirubin Total 0.5 mg/dL (0.0-1.0); Blood Urea Nitrogen 19 mg/dL (9-16); Calcium 9.8 mg/dL (8.4-10.2); Carbon Dioxide 30 mmol/L (22-29); Chloride 103 mmol/L (96-108); Cholesterol 126 mg/dL (<200); Estimated Glomerular Filt Rate > 60; Glucose Fasting 140 mg/dL (60-99); HDL Cholesterol 31 mg/dL (>40); LDL Cholesterol Calculated 53 mg/dL (<100); Potassium 4.3 mmol/L (3.3-5.1); Sodium 141 mmol/L (135-145); Total Protein 7.4 g/dL (6.5-8.0); Triglycerides 211 mg/dL (<150)
[2024-02-07 11:09] LABS: LDL Cholesterol Direct 47 mg/dL (<100)
== END 2024-02-06 08:51 | disposition home or self-care (01) ==
LOC: HO.HMGCLDS 08:50
PROVIDERS: PCP Internal Medicine; Visit Provider Internal Medicine
DX: D12.6 Benign neoplasm of colon, unspecified (principal); R05.8 Other specified cough; T46.4X5A Adverse effect of angiotensin-converting-enzyme inhibitors, initial encounter; E78.1 Pure hyperglyceridemia; K21.9 Gastro-esophageal reflux disease without esophagitis; E66.01 Morbid (severe) obesity due to excess calories; M17.10 Unilateral primary osteoarthritis, unspecified knee; M54.50 Low back pain, unspecified; G89.29 Other chronic pain; G47.33 Obstructive sleep apnea (adult) (pediatric); Z99.89 Dependence on other enabling machines and devices
CPT/HCPCS: 36415; 80053; 80061; 83036; 83721

== ENCOUNTER 2024-02-10 07:51 | Outpatient (AMB) | payer BC, SELFPAY ==
[2024-02-10 07:52] VITALS: BP 110/70; PULSE 70; O2SAT 98; BMI 43.0
--- NOTE | 2024-02-10 07:52 | A.OFFPC_ITS ---
Vital Signs 02/10/24 07:52 Height 5 ft 2 in Weight 235 lb BMI 43.0 BP 110/70 Blood Pressure Location Rt brachial Position Sitting Pulse 70 Pulse Source Pulse Oximeter Pulse Oximetry (%) 98 Oxygen Delivery Method Room Air Intake Visit Reasons: 3 mo. f/u Intake Note: Pt is here today for her 3 mo. f/u Allergies No Known Allergies Allergy (Mild, Verified 02/10/24 08:21) NONE Medication List - Last Reconciled 02/10/24 by Olesya Fairbanks MD cholecalciferol (vitamin D3) 50 mcg PO DAILY cyclosporine 0.05% (Restasis) 1 drp ophthalmic (eye) DAILY fenofibrate 120 mg PO DAILY loratadine 10 mg PO DAILY PRN losartan-hydrochlorothiazide 100-12.5 mg 1 tab PO DAILY meloxicam 15 mg PO DAILY metoprolol succinate ER 100 mg PO DAILY omeprazole 20 mg PO QAM tizanidine 2 mg PO TID PRN Tobacco use date assessed: 02/10/24 Dental Screening Dental Screen Date: 02/10/24 Did you have a dental visit in the last 12 months?: Yes Did you have a dental problem in the last 6 months where you did not have access to dental care?: Yes Was dental information given to patient?: Patient has dentist HPI 3 mo. f/u HPI Details 63-year-old lady with hypertension, hype rtriglyceridemia, and newly diagnosed diabetes mellitus, here today for follow-up. She has been cutting back on lot of junk food, and avoided eating out a lot over the last 3 weeks since her last visit. She has lost weight, and hemoglobin A1c now is at 7%. [facility] Medical History Type 2 diabetes mellitus without complication, without long-term current use of insulin Seasonal allergies Chronic low back pain Adenomatous polyp of colon Cough due to KAYLAH inhibitor Trigger thumb of right hand Varicose veins of right lower extremity with pain Morbid obesity Patellofemoral arthritis Rotator cuff tear, right Left carpal tunnel syndrome Gallstone pancreatitis Hypertriglyceridemia DENYS on CPAP GERD (gastroesophageal reflux disease) Essential hypertension Surgical History History of carpal tunnel surgery History of arthroscopy of right shoulder H/O medial meniscus repair of right knee History of right hip replacement H/O colonoscopy History of cholecystectomy Family History Father Multiple sclerosis Alzheimer disease Diabetes Congestive heart failure Mother Breast cancer Ovarian cancer Hypertension Maternal Aunt Breast cancer Maternal Grandmother Breast cancer Daughter Mental health disorder History of fundoplication Social History Housing: House Alcohol intake: never Patient Tobacco Use Status: Never used Tobacco e-Cigarette/Vaping Use: Never Used Second Hand Smoke Exposure: No service: No Current occupational status: employed 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 Stevan Winston, Mari Wallis, Rusty Griffin and colleagues, with an educational erica from [employer]. Review of Systems Const Reports no additional complaints and Reports weight loss Eyes Denies change in vision ENT Reports Normal hearing present Card Denies chest pain with activity, Denies irregular heart rhythm and Denies radiating jaw, neck or arm pain Resp Denies pain on inspiration GI Denies abdominal pain, Denies bloating, Denies heartburn and Denies nausea Reports no additional complaints Musc Denies joint swelling and Denies muscle weakness Neuro Reports Normal hearing present and Denies Sensory deficit (Neuro) Psych Denies anxiety, Denies depression, Denies irritability and Denies panic attacks Endo Denies polyphagia and Denies polydipsia Félix/Lymph Denies easy bleeding and Denies easy bruising Aller/Immun Reports no additional complaints Physical exam (Primary Care) Vital Signs: Last Vital Signs Pulse 70 02/10/24 07:52 BP 110/70 02/10/24 07:52 Pulse Ox 98 02/10/24 07:52 Oxygen Delivery Method Room Air 02/10/24 07:52 BMI result Body Mass Index 43.0 BMI Assessment/Plan discussion: High BMI High, discussed plan: lifestyle Tobacco/Smoking Status: Tobacco use Status Tobacco use date assessed 02/10/24 02/10/24 07:54 Patient Tobacco Use Status Never used Tobacco 02/10/24 07:54 e-Cigarette/Vaping Use Never Used 02/10/24 07:54 Thrive Assessment: Date of Thrive Assessment Date Thrive assessed 11/12/23 02/10/24 07:54 Const General: no acute distress, alert and awake Nutritional Appearance: obese morbidly obese Orientation/consciousness: patient oriented x3 HENMT Head: Yes normocephalic Ears: external ears normal General nose exam: Normal external nose present Face and sinus: Yes face symmetric Mouth: Normal oral and palatal mucosa present, oropharynx normal and moist mucous membranes Eyes General: appearance normal, both eyes and all related structures Neck Neck: Yes full ROM, Yes no lymphadenopathy and Yes supple Thyroid: Thyroid normal Resp Auscultation: clear to auscultation bilaterally Cardio Palpation: normal PMI Rate: regular rate Rhythm: regular rhythm Heart sounds: S1 normal heart sound present and S2 normal heart sound present GI Inspection: Yes normal to inspection and Yes Abdominal panniculus present Auscultation: normal bowel sounds Neuro General: patient oriented x3, gait normal, tone normal, moves all extremities, Normal light touch and pain sensation and no focal motor deficits Cranial nerves: Yes Normal hearing present Sensory Exam: No Sensory deficit (Neuro) Extrem General: Yes full ROM and Yes no joint enlargement Results Reviewed Results Reviewed: Name: Winter Duron Age/Sex: 63/F : 1960 Unit#: [id number] Attend Dr: Olesya Fairbanks MD Re02/06/24 Status: DEP REF Location: [facility] Disch: SPEC : [id number] GAEL: 02/06/24 STATUS: COMP REQ : [id number] RECD: 02/06/24-[address]: Olesya Fairbanks MD COMP: 02/06/24-0 ENTERED: 02/06/[address]: ORDERED: CMP Fast, Lipid Panel Test Result Flag Reference Sodium 141 135-145 mmol/L Potassium 4.3 3.3-5.1 mmol/L CL 103 96-108 mmol/L CO2 30 H 22-29 mmol/L Gap 12 12-20 BUN 19 H 9-16 mg/dL Creat 0.81 0.5-1.4 mg/dL EGFR > 60 NOTE: For -[place] individuals, multiply the result by 1.210. Chronic Kidney Disease: Estimated GFR < 60 mL/min/1.73m2 Severe Kidney Disease: Estimated GFR < 15 mL/min/1.73m2 FBS 140 H 60-99 mg/dL A fasting glucose of 126 mg/dl or greater on more than one occasion is considered diagnostic of diabetes. CA 9.8 # 8.4-10.2 mg/dL Total Bili 0.5 0.0-1.0 mg/dL AST (GOT) 18 5-31 U/L ALT (GPT) 22 0-31 U/L Protein, Total 7.4 6.5-8.0 g/dL Alb 4.2 3.5-5.0 g/dL Triglyceride 211 H <150 mg/dL Desirable Triglyceride: less than 150 mg/dL Borderline High Triglyceride 150-199 mg/dL High Triglyceride: 200-499 mg/dL Very High Triglyceride: greater than or equal to 5OO mg/dL Cholesterol 126 <200 mg/dL Desirable Cholesterol: less than 200 mg/dL Borderline High Cholesterol: 200-239 mg/dL High Cholesterol: greater than 239 mg/dL LDL Calculated 53 <100 mg/dL Desirable LDL: less than 100 mg/dL Near Optimal/Above Optimal LDL: 110-129 mg/dL Borderline High LDL: 130-159 mg/dL High LDL: 160-189 mg/dL Very High LDL: greater than or equal to 190 mg/dL HDL 31 L >40 mg/dL Desirable HDL: greater than 40 mg/dL Note: This HDL assay may give artificially low results in patients with liver disease. Alk Phos 55 39-117 U/L Laboratory Tests 01/16/24 02/06/24 14:58 08:53 Estimat Average Glucose 163 154 Hemoglobin A1c % 7.3 H 7.0 H Assessment and Plan Assessment & Plan (1) Type 2 diabetes mellitus without complication, without long-term current use of insulin: Code(s): E11.9 - Type 2 diabetes mellitus without complications Plan: Reviewed recent fasting lab results with patient, hemoglobin A1c is at 7.3%. Started on metformin ER 500 mg to take 1 at night with supper, side effects discussed with patient. Continue with adherence to diabetic diet and getting regular exercise. Reminded to get her diabetes yearly retinopathy screening, go es to my eye doctor, due again in 08/2024. Prevnar 20 given today (2) Essential hypertension: Code(s): I10 - Essential (primary) hypertension Plan: Blood pressure at goal of less than 130/80. Continue with metoprolol succinate ER 100 mg daily and losartan-HCTZ 100-12.5 mg taken once a day in a.m.. Reinforced importance of following a low sodium diet, getting regular exercise, and lowering stress levels. (3) Hypertriglyceridemia: Code(s): E78.1 - Pure hyperglyceridemia Plan: Reviewed recent fasting lipid profile with patient with improved triglycerides and normal LDL cholesterol seen . Continue with fenofibrate 120 mg daily , in addition to adherence to low-cholesterol diet and regular exercise, at least 30 minutes 3 to 4 times a week. Advised patient to make healthy food choices, eat more fruits, vegetables, whole grains, wild caught fish and low-fat dairy. Limit amount of meat and fried or fatty food products, as well as processed foods and fast foods. Follow-up scheduled with repeat fasting lipid panel in months. Orders: Orders Hemoglobin A1c 07/16/24 E11.9 - Type 2 diabetes mellitus without complications, E78.1 - Pure hyperglyceridemia, I10 - Essential (primary) hypertension Microalbumin, Random (w Creat) 07/16/24 E11.9 - Type 2 diabetes mellitus without complications, E78.1 - Pure hyperglyceridemia, I10 - Essential (primary) hypertension Pneumococcal 20 Immunization Today Z23 - Encounter for immunization Lipid Panel 07/16/24 E11.9 - Type 2 diabetes mellitus without complications, E78.1 - Pure hyperglyceridemia, I10 - Essential (primary) hypertension Alanine Aminotransferase 07/16/24 E11.9 - Type 2 diabetes mellitus without complications, E78.1 - Pure hyperglyceridemia, I10 - Essential (primary) hypertension Aspartate Amino Transferase 07/16/24 E11.9 - Type 2 diabetes mellitus without complications, E78.1 - Pure hyperglyceridemia, I10 - Essential (primary) hypertension Basic Metabolic Panel Fasting 07/16/24 E11.9 - Type 2 diabetes mellitus without complications, E78.1 - Pure hyperglyceridemia, I10 - Essential (primary) hypertension Medications: New metformin ER 500 mg PO QPM 90 tabs 2RF pneumoc 20-freddy conj-dip cr(PF) 0.5 mL IM ONCE 0.5 mL 0RF Z23 - Encounter for immunization Refilled fenofibrate 120 mg PO DAILY 90 tabs 3RF metoprolol succinate ER 100 mg PO DAILY 90 tabs 2RF I10 - Essential (primary) hypertension, R00.2 - Palpitations losartan-hydrochlorothiazide 100-12.5 mg 1 tab PO DAILY 90 tabs 2RF I10 - Essential (primary) hypertension, R05.8 - Other specified cough, T46.4X5A - Adverse effect of lldntkqsevj-nwjabqjfqg-ehlngd inhibitors, initial encounter Coding Level of Care Code Est Pt Level 4 (69652) Diagnoses Type 2 diabetes mellitus without complication, without long-term current use of insulin E11.9 Essential hypertension I10 Hypertriglyceridemia E78.1
== END 2024-02-10 09:08 | disposition home or self-care (01) ==
PROVIDERS: PCP Internal Medicine; Visit Provider Internal Medicine
DX: E11.9 Type 2 diabetes mellitus without complications (principal); I10 Essential (primary) hypertension; E78.1 Pure hyperglyceridemia; Z23 Encounter for immunization
CPT/HCPCS: 90471; 90677; 99214

== ENCOUNTER 2024-04-05 08:46 | Outpatient (AMB) | payer BC, SELFPAY ==
--- NOTE | 2024-04-05 08:48 | MHC.OFFVISWM ---
VS Expanded 04/05/24 08:53 BP 123/57 L Blood Pressure Location Rt brachial Blood Pressure Position Sitting Pulse 84 Pulse Source Pulse Oximeter Temp 96.8 F Temperature Source Tympanic Pulse Oximetry 94 Oxygen Delivery Method Room Air Height 5 ft 2 in Weight 233 lb 6.4 oz BMI 42.7 Body Fat % 45.3 Body Fat Mass 105.6 Fat Free Mass 127.6 Visceral Fat Rating 16.0 Body Water % 38.8 Body Water Mass 90.4 Muscle Mass/Score 121.2 Basal Metabolic Rate/Score 1,781 Intake Visit Reasons: (OV) F/U SWL Allergies No Known Allergies Allergy (Mild, Verified 04/05/24 08:48) NONE HPI Comments Details: Patient is a pleasant 64-year-old female who previously presented to the metabolic clinic and transition to surgical weight loss clinic. Her initial weight on 01/16/24 was 239.6 with a BMI of 43.8. Weight today is 233.4 lb with a BMI of 42.7. This corresponds to a 6.2 lb weight loss or 2.5% total body weight loss. She states she followed the meal plan for 3 weeks and [facility] [place] She used a weight loss program called [employer] which was protein and then one meal a day. She did this for a couple months and she is now back in the area and she back on the below meal plan for a week and then she stopped. She was having trouble following the schedule as she had forgotten. Meal plan: 2 Celebrate Rebuild shakes ([facility] [employer], [employer], [employer]), First shake (1.5 scoops in 12 oz unsweetened almond milk) at 7am-9am 2 Celebrate protein bars (Celebrate bars at [facility] [employer], [employer], [employer]) First bar at 10am-12pm. Second bar at 2pm-4pm Dinner at 6pm (8 forks of protein and 8 forks of salad/vegetables). Meal to include lean meat (beef, fish, pork, turkey, chicken), cooked vegetables or a salad with olive oil and/or fruits (berries, pears, apples, kiwi). Avoid salt, breads, potatoes, rice, pasta, desserts. Another shake with 1 scoop in 12 oz unsweetened almond milk at 8pm-10pm. Exercise plan: treadmill at home for 1 week. [facility], [facility] Medical History Type 2 diabetes mellitus without complication, without long-term current use of insulin Seasonal allergies Chronic low back pain Adenomatous polyp of colon Cough due to KAYLAH inhibitor Trigger thumb of right hand Varicose veins of right lower extremity with pain Morbid obesity Patellofemoral arthritis Rotator cuff tear, right Left carpal tunnel syndrome Gallstone pancreatitis Hypertriglyceridemia DENYS on CPAP GERD (gastroesophageal reflux disease) Essential hypertension Surgical History History of carpal tunnel surgery History of arthroscopy of right shoulder H/O medial meniscus repair of right knee History of right hip replacement H/O colonoscopy History of cholecystectomy Family History Father Multiple sclerosis Alzheimer disease Diabetes Congestive heart failure Mother Breast cancer Ovarian cancer Hypertension Maternal Aunt Breast cancer Maternal Grandmother Breast cancer Daughter Mental health disorder History of fundoplication Social History Housing: House Alcohol intake: never Patient Tobacco Use Status: Never used Tobacco e-Cigarette/Vaping Use: Never Used Second Hand Smoke Exposure: No service: No Current occupational status: employed 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 Cognitive needs: No Hearing needs: No Vision needs: Yes Physical Exam Vital Signs: Last Vital Signs Temp 96.8 F 04/05/24 08:53 Pulse 84 04/05/24 08:53 BP 123/57 L 04/05/24 08:53 Pulse Ox 94 04/05/24 08:53 Oxygen Delivery Method Room Air 04/05/24 08:53 BMI result Body Mass Index 42.7 Const General: healthy appearing and no acute distress Resp Effort & Inspection: normal respiratory effort Auscultation: clear to auscultation bilaterally Cardio Rate: regular rate Rhythm: regular rhythm GI Auscultation: normal bowel sounds Extrem General: Yes normal to inspection Assessment & Plan Assessment & Plan (1) Morbid obesity: Code(s): E66.01 - Morbid (severe) obesity due to excess calories Category: Medical Plan: Patient had difficulty with consistency and following the meal plans. We will now start her on the right BMI vasile program. Additionally, made recommendations for her regarding her complaint of low back musculoskeletal strain. She will call her primary care physician for referral to physical therapy to learn stretches and low back exercises. Additionally discussed the potential use of recumbent bike and she will inquire about [employer]. She was encouraged to send weight weekly and return to clinic in 4 weeks.
[2024-04-05 08:53] VITALS: BP 123/57; PULSE 84; TEMP 36; O2SAT 94; BMI 42.7
== END 2024-04-05 09:35 | disposition home or self-care (01) ==
PROVIDERS: PCP Internal Medicine; Visit Provider Physician Assistant Surgical
DX: E66.01 Morbid (severe) obesity due to excess calories (principal); Z68.41 Body mass index [BMI] 40.0-44.9, adult
CPT/HCPCS: 99213

== ENCOUNTER → 2024-04-05 08:46 | Outpatient (BNVA) | payer BC, SELFPAY | PROVIDERS: PCP Internal Medicine; Visit Provider Physician Assistant Surgical ==

== ENCOUNTER 2024-04-09 13:10 | Outpatient (AMB) | payer BC, SELFPAY ==
--- NOTE | 2024-04-09 13:12 | AM.OFFWIN_ITS ---
Intake Vital Signs 04/09/24 13:13 Height 5 ft 2 in Weight 233 lb BMI 42.6 BP 122/64 Blood Pressure Location Rt brachial Position Sitting Pulse 78 Pulse Source Pulse Oximeter Temp 98.3 F Temp Source Oral Pulse Oximetry (%) 98 Oxygen Delivery Method Room Air Intake Visit Reasons: Throat and ear pain Intake Note: pt here c/o throat pain started 2 weeks ago and ear pain and pressure. Started yesterday. Patient Tobacco Use Status: Never used Tobacco Allergies No Known Allergies Allergy (Mild, Verified 04/09/24 13:13) NONE Do you need a note to return to daycare/school/sports/work: No HPI Throat and ear pain HPI Details 64 year old female patient presents to t he walk-in clinic today with c/o sore throat x2 weeks and 1 day of left ear pain. Reports she had nasal/sinus congestion previously however this has resolved. Denies any shortness of breath. Denies any fever or chills. As tested for COVID at home several times which have been negative. [facility] Medical History Type 2 diabetes mellitus without complication, without long-term current use of insulin Seasonal allergies Chronic low back pain Adenomatous polyp of colon Cough due to KAYLAH inhibitor Trigger thumb of right hand Varicose veins of right lower extremity with pain Morbid obesity Patellofemoral arthritis Rotator cuff tear, right Left carpal tunnel syndrome Gallstone pancreatitis Hypertriglyceridemia DENYS on CPAP GERD (gastroesophageal reflux disease) Essential hypertension Surgical History History of carpal tunnel surgery History of arthroscopy of right shoulder H/O medial meniscus repair of right knee History of right hip replacement H/O colonoscopy History of cholecystectomy Family History Father Multiple sclerosis Alzheimer disease Diabetes Congestive heart failure Mother Breast cancer Ovarian cancer Hypertension Maternal Aunt Breast cancer Maternal Grandmother Breast cancer Daughter Mental health disorder History of fundoplication Social History Housing: House Alcohol intake: never Patient Tobacco Use Status: Never used Tobacco e-Cigarette/Vaping Use: Never Used Second Hand Smoke Exposure: No service: No Current occupational status: employed 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 Cognitive needs: No Hearing needs: No Vision needs: Yes Review of Systems Const All systems reviewed & are unremarkable except as noted in HPI and below Physical Exam Vital Signs: Last Vital Signs Temp 98.3 F 04/09/24 13:13 Pulse 78 04/09/24 13:13 BP 122/64 04/09/24 13:13 Pulse Ox 98 04/09/24 13:13 Oxygen Delivery Method Room Air 04/09/24 13:13 BMI result Body Mass Index 42.6 Const General: cooperative and no acute distress HEENT Head: Yes normal to inspection Ears: hearing grossly normal bilaterally, external ears normal, TM normal on the right and TM abnormal (right TM erythema, purulent effusion) General nose exam: Normal external nose present and Normal nasal mucous membranes and turbinates present Face and sinus: Yes normal facial exam Throat: Yes posterior oropharynx abnormal (mild erythema) Neck Neck: Yes lymphadenopathy (mild left submandibular lymphadenopathy) Resp Effort & Inspection: normal respiratory effort Auscultation: clear to auscultation bilaterally Cardio Rate: regular rate Rhythm: regular rhythm Skin General skin exam: no rashes or lesions noted Extrem General: Yes no clubbing, cyanosis or edema Psych Appearance: grossly normal Mental Status: mental status grossly normal Speech and movement: Normal speech and movement present Results AMB Rapid Strep AMB Rapid Strep Negative Last Edit by Himanshu Kay CMA on 04/09/24 13:29 Results Reviewed Results Reviewed: Laboratory Last Values Strep Scn Rapid Clinic Negative 04/09/24 13:23 Assessment & Plan Assessment & Plan (1) Left otitis media with effusion: Code(s): H65.92 - Unspecified nonsuppurative otitis media, left ear Plan: Rapid strep was negative. D/w patient that this likely originated as viral illness, however she now has developed left OM. Will start her on Augmentin. Reviewed indications, use, possible side effects of medication. Also recommended to use Tylenol/Motrin as needed. If she does not improve with treatment, or if symptoms worsen, she can return to the clinic for further evaluation. She verbalizes understanding and agrees to plan. Orders: Orders AMB Rapid Strep Screen Today Anay Galicia NP Z13.9 - Encounter for screening, unspecified Medications: New amoxicillin-pot clavulanate 875-125 mg 1 tab PO BID 7 days 14 tabs 0RF ANKUR Yun H65.92 - Unspecified nonsuppurative otitis media, left ear Coding Level of Care Code Est Pt Level 4 (46665) Diagnoses Left otitis media with effusion H65.92
[2024-04-09 13:13] VITALS: BP 122/64; PULSE 78; TEMP 36.8; O2SAT 98; BMI 42.6
== END 2024-04-09 13:48 | disposition home or self-care (01) ==
PROVIDERS: PCP Internal Medicine; Visit Provider Nurse Practitioner Family
DX: H65.92 Unspecified nonsuppurative otitis media, left ear (principal); Z13.9 Encounter for screening, unspecified
CPT/HCPCS: 87880; 99214

== ENCOUNTER 2024-04-21 12:12 | Outpatient (AMB) | payer BC, SELFPAY ==
--- NOTE | 2024-04-21 12:21 | AM.OFFWIN_ITS ---
Intake Vital Signs 04/21/24 12:24 Height 5 ft 2 in Weight 233 lb BMI 42.6 BP 120/62 Blood Pressure Location Rt brachial Position Sitting Pulse 72 Pulse Source Pulse Oximeter Temp 98.6 F Temp Source Oral Pulse Oximetry (%) 98 Oxygen Delivery Method Room Air Intake Visit Reasons: itchy rash back legs, front arms Intake Note: pt is here for itchy rash on back of legs bilateral and now spread to arms Patient Tobacco Use Status: Never used Tobacco Allergies No Known Allergies Allergy (Mild, Verified 04/21/24 12:25) NONE Do you need a note to return to daycare/school/sports/work: No HPI HPI Comments History of Present Illness Details Patient is a 64-year-old female complaining of 1 week of a rash which started on her left posterior leg went to her right posterior leg and now is on both of her arms. She states she has been using cortisone cream which helps temporarily. She does not recall being in the hua or coming in contact with any poison shadia. She denies any fevers. Patient also states she recently had an ear infection her left ear but she felt a sharp pain yesterday and she is asking if I can look at it to make sure it is not infected. [facility] Medical History Type 2 diabetes mellitus without complication, without long-term current use of insulin Seasonal allergies Chronic low back pain Adenomatous polyp of colon Cough due to KAYLAH inhibitor Trigger thumb of right hand Varicose veins of right lower extremity with pain Morbid obesity Patellofemoral arthritis Rotator cuff tear, right Left carpal tunnel syndrome Gallstone pancreatitis Hypertriglyceridemia DENYS on CPAP GERD (gastroesophageal reflux disease) Essential hypertension Surgical History History of carpal tunnel surgery History of arthroscopy of right shoulder H/O medial meniscus repair of right knee History of right hip replacement H/O colonoscopy History of cholecystectomy Family History Father Multiple sclerosis Alzheimer disease Diabetes Congestive heart failure Mother Breast cancer Ovarian cancer Hypertension Maternal Aunt Breast cancer Maternal Grandmother Breast cancer Daughter Mental health disorder History of fundoplication Social History (Reviewed 04/09/24 @ 13:49 by PAULO Yun Housing: House Alcohol intake: never Patient Tobacco Use Status: Never used Tobacco e-Cigarette/Vaping Use: Never Used Second Hand Smoke Exposure: No service: No Current occupational status: employed 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 Cognitive needs: No Hearing needs: No Vision needs: Yes Review of Systems Const All systems reviewed & are unremarkable except as noted in HPI and below Physical Exam Vital Signs: Last Vital Signs Temp 98.6 F 04/21/24 12:24 Pulse 72 04/21/24 12:24 BP 120/62 04/21/24 12:24 Pulse Ox 98 04/21/24 12:24 Oxygen Delivery Method Room Air 04/21/24 12:24 BMI result Body Mass Index 42.6 Const General: cooperative, healthy appearing, comfortable and no acute distress Orientation/consciousness: patient oriented x3 Limitations: no limitations HEENT Head: Yes normal to inspection Ears: hearing grossly normal bilaterally, external ears normal and TM normal on the left Eyes General: appearance normal, both eyes and all related structures Resp Effort & Inspection: normal respiratory effort and able to speak in complete sentences Skin Other: A streaky, linear maculopapular rash with crusted lesions on left posterior (4cm x 3cm area) and right posterior legs (2cm x2cm area), bilateral upper arms distal biceps (scant rash on each). No signs of infection noted Neuro General: patient oriented x3 Assessment & Plan Assessment & Plan (1) Allergic dermatitis due to poison shadia: Code(s): L23.7 - Allergic contact dermatitis due to plants, except food Plan: Educated patient on not reinfecting herself by wearing long pants and long sleeves covering couches and chairs that she sits in. Send prescription for clobetasol and hydroxyzine to pharmacy. Plan See above Medications: New clobetasol 0.05% 1 appl topical BID 1 week 45 grams 0RF hydroxyzine HCl 10 mg PO .nightly prn 7 tabs 0RF itching Coding Level of Care Code Est Pt Level 3 (21471) Diagnoses Allergic dermatitis due to poison shadia L23.7
[2024-04-21 12:24] VITALS: BP 120/62; PULSE 72; TEMP 37; O2SAT 98; BMI 42.6
== END 2024-04-21 13:01 | disposition home or self-care (01) ==
PROVIDERS: PCP Internal Medicine; Visit Provider Physician Assistant
DX: L23.7 Allergic contact dermatitis due to plants, except food (principal)
CPT/HCPCS: 99213

== ENCOUNTER 2024-05-06 14:33 | Outpatient (AMB) | payer BC, SELFPAY ==
--- NOTE | 2024-05-06 14:52 | AM.OFFWIN_ITS ---
Intake Vital Signs 3 05/06/24 14:55 Height 5 ft 2 in Weight 234 lb BMI 42.8 BP 124/66 Blood Pressure Location Rt brachial Position Sitting Pulse 92 Pulse Source Pulse Oximeter Temp 98.6 F Temp Source Oral Pulse Oximetry (%) 97 Oxygen Delivery Method Room Air Intake Visit Reasons: EP- poison shadia Intake Note: pt c/o rash. ? poison shadia. Started a couple weeks ago Patient Tobacco Use Status: Never used Tobacco Allergies No Known Allergies Allergy (Mild, Verified 05/06/24 14:53) NONE Do you need a note to return to daycare/school/sports/work: No HPI HPI Comments 2 History of Present Illness0 Details 64 y/o female patient who presents to [facility] in clinic with c/o Rash on her body that is very itchy. Pt was seen here 04/15/2024 for similar condition and prescribed Clobetasol cream and Hydroxyzine Tabs. Pt feels like the medications did not work well and thinks the rash is spreading. 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 Morbid obesity Patellofemoral arthritis Rotator cuff tear, right Left carpal tunnel syndrome Gallstone pancreatitis Hypertriglyceridemia DENYS on CPAP GERD (gastroesophageal reflux disease) Essential hypertension Surgical History History of carpal tunnel surgery History of arthroscopy of right shoulder H/O medial meniscus repair of right knee History of right hip replacement H/O colonoscopy History of cholecystectomy Family History Father Multiple sclerosis Alzheimer disease Diabetes Congestive heart failure Mother Breast cancer Ovarian cancer Hypertension Maternal Aunt Breast cancer Maternal Grandmother Breast cancer Daughter Mental health disorder History of fundoplication Social History Housing: House Alcohol intake: never Patient Tobacco Use Status: Never used Tobacco e-Cigarette/Vaping Use: Never Used Second Hand Smoke Exposure: No service: No Current occupational status: employed 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 Erythematous Hives right arm 2. Macular papular rash on chest, red and dry Neuro General: patient oriented x3, gait normal and moves all extremities Psych Speech and movement: Normal speech and movement present Assessment & Plan Assessment & Plan (1) Acute dermatitis: Code(s): L30.9 - Dermatitis, unspecified Plan: Ordered topical Steroid x 14 days. Ordered Prednisone x 5 days Claritin BID Keep Skin dry and clean Medications: New 2 triamcinolone acetonide 0.025% 1 appl topical BID 14 days 80 grams 0RF L30.9 - Dermatitis, unspecified prednisone 50 mg PO DAILY 5 days 5 tabs 0RF L30.9 - Dermatitis, unspecified Refilled 2 loratadine 10 mg PO DAILY PRN 90 tabs 0RF allergy symptoms L30.9 - Dermatitis, unspecified Coding Level of Care Code Est Pt Level 3 (44141) Diagnoses Acute dermatitis L30.9 Time Spent (min) 15
[2024-05-06 14:55] VITALS: BP 124/66; PULSE 92; TEMP 37; O2SAT 97; BMI 42.8
== END 2024-05-06 15:56 | disposition home or self-care (01) ==
PROVIDERS: PCP Internal Medicine; Visit Provider Nurse Practitioner Family
DX: L30.9 Dermatitis, unspecified (principal)
CPT/HCPCS: 99213

== ENCOUNTER 2024-06-02 14:22 | Outpatient (AMB) | payer BC, SELFPAY ==
--- NOTE | 2024-06-02 14:29 | A.OFFVIS_ITS ---
Vital Signs 06/02/24 14:30 Height 5 ft 2 in Weight 235 lb BMI 43.0 BP 130/76 Blood Pressure Location Rt brachial Position Sitting Respiration 16 Pulse 85 Pulse Source Pulse Oximeter Pulse Oximetry (%) 97 Oxygen Delivery Method Room Air Intake Visit Reasons: 1 yr follow up for sleep-LVM TO R/S Intake Note: Pt presents to the office for follow up for DENYS. 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 Required: No Allergies No Known Allergies Allergy (Mild, Verified 06/02/24 14:30) NONE Medication List - Last Reconciled 06/02/24 by Jenna Pastrana MD cholecalciferol (vitamin D3) 50 mcg PO DAILY cyclosporine 0.05% (Restasis) 1 drp ophthalmic (eye) DAILY fenofibrate 120 mg PO DAILY loratadine 10 mg PO DAILY PRN losartan-hydrochlorothiazide 100-12.5 mg 1 tab PO DAILY meloxicam 15 mg PO DAILY PRN metformin ER 500 mg PO QPM metoprolol succinate ER 100 mg PO DAILY omeprazole 20 mg PO QAM prednisone 50 mg PO DAILY 5 days tizanidine 2 mg PO TID PRN triamcinolone acetonide 0.025% 1 appl topical BID 14 days HPI Comments Details: 64 y/o female patient presents for follow up of sleep study. The home sleep study result was significant for moderate to severe degree of sleep apnea. The AHI was 22/hr and oxygen arnulfo was 84%. Pt underwent titration study and started CPAP at [id number]. The CPAP compliance and therapy response (02/25/24- 05/24/24) reviewed with the patient. The usage days 83% and the average usage hours 7 hours. The AHI was 1.3/hr. she use dher old CPAP when she travelled for 2 weeks Pt reports that she sleeps well with CPAP and daytime sleepiness has improved. she reports muscle cramps at rest . [facility] Medical History (Updated 06/02/24 @ 14:43 by Jenna Pastrana MD) Muscle cramps Type 2 diabetes mellitus without complication, without long-term current use of insulin Seasonal allergies Chronic low back pain Adenomatous polyp of colon Cough due to KAYLAH inhibitor Trigger thumb of right hand Varicose veins of right lower extremity with pain Morbid obesity Patellofemoral arthritis Rotator cuff tear, right Left carpal tunnel syndrome Gallstone pancreatitis Hypertriglyceridemia DENYS on CPAP GERD (gastroesophageal reflux disease) Essential hypertension Surgical History History of carpal tunnel surgery History of arthroscopy of right shoulder H/O medial meniscus repair of right knee History of right hip replacement H/O colonoscopy History of cholecystectomy Family History Father Multiple sclerosis Alzheimer disease Diabetes Congestive heart failure Mother Breast cancer Ovarian cancer Hypertension Maternal Aunt Breast cancer Maternal Grandmother Breast cancer Daughter Mental health disorder History of fundoplication Social History Housing: House Alcohol intake: never Patient Tobacco Use Status: Never used Tobacco e-Cigarette/Vaping Use: Never Used Second Hand Smoke Exposure: No service: No Current occupational status: employed 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 Cognitive needs: No Hearing needs: No Vision needs: Yes Review of Systems ENT Reports Normal hearing present Neuro Reports Normal hearing present Physical Exam Vital Signs: Last Vital Signs Pulse 85 06/02/24 14:30 Resp 16 06/02/24 14:30 BP 130/76 06/02/24 14:30 Pulse Ox 97 06/02/24 14:30 Oxygen Delivery Method Room Air 06/02/24 14:30 BMI result Body Mass Index 43.0 Const General: cooperative Nutritional Appearance: obese Orientation/consciousness: patient oriented x3 HEENT Throat: Yes other (mallampati grade 4) Neck Neck: Yes full ROM and Yes supple Resp Effort & Inspection: normal respiratory effort and able to speak in complete sentences Neuro General: patient oriented x3 and gait normal Cranial nerves: Yes Bilaterally intact EOM present, Yes Normal facial strength present, Yes Midline tongue present, Yes Normal hearing present, Yes Ability to bilaterally rotate head present and Yes Ability to bilaterally elevate shoulders present Cognition (Neuro): normal cognition Gait exam (Neuro): Normal gait present Assessment & Plan Assessment & Plan (1) DENYS on CPAP: Comment: Moderate to severe degree of sleep apnea. The AHI was 22/hr and oxygen arnulfo was 84% Code(s): G47.33 - Obstructive sleep apnea (adult) (pediatric); Z99.89 - Dependence on other enabling machines and devices Category: Medical (2) Muscle cramps: Code(s): R25.2 - Cramp and spasm Category: Medical Plan Continue to use CPAP at [id number]. Stressed compliance, uses nightly and more than 4 hours. Clean mask and tubing regularly. Gabapentin 100mg 1-3 caps qhs Orders: Orders Complete Blood Count Auto Diff Today R25.2 - Cramp and spasm Comprehensive Met. Panel Today R25.2 - Cramp and spasm Vitamin D 25-OH (D2 and D3) Today R25.2 - Cramp and spasm TSH reflex Free T4 Today R25.2 - Cramp and spasm Vitamin B12 and Folate Today R25.2 - Cramp and spasm Ferritin Today R25.2 - Cramp and spasm Erythrocyte Sedimentation Rate Today R25.2 - Cramp and spasm Medications: New gabapentin 1-3 caps orally bedtime; 90 caps 6RF Coding Level of Care Code Est Pt Level 4 (77473) Diagnoses DENYS on CPAP G47.33; Z99.89 Muscle cramps R25.2
[2024-06-02 14:30] VITALS: BP 130/76; PULSE 85; RESP 16; O2SAT 97; BMI 43.0
== END 2024-06-02 14:48 | disposition home or self-care (01) ==
PROVIDERS: Absent Provider Psychiatry & Neurology Neurology; PCP Internal Medicine; Visit Provider Psychiatry & Neurology Neurology
DX: G47.33 Obstructive sleep apnea (adult) (pediatric) (principal); Z99.89 Dependence on other enabling machines and devices; R25.2 Cramp and spasm
CPT/HCPCS: 99214

== ENCOUNTER → 2024-06-02 14:22 | Outpatient (BNVA) | payer BC, SELFPAY | PROVIDERS: Absent Provider Psychiatry & Neurology Neurology; PCP Internal Medicine; Visit Provider Psychiatry & Neurology Neurology ==

== ENCOUNTER 2024-06-08 09:00 | Outpatient (RCR) | payer BC, SELFPAY ==
--- NOTE | 2024-04-21 09:54 | MHC.PT.EP ---
[facility] Office [place] [facility] [place] [facility] [address] Kanwal Peacock [address] [phone] F: [phone] F: [phone] F: [phone] F: [phone] Physical Therapy Plan of Care Date of Evaluation: 04/21/24 Date of Surgery: n/a Diagnosis: low back pain Assessment: Patient is a 64 year old female presenting to PT with complaints of pain in her low back. Pt reports onset of pain began a couple years ago due to a fall. She presents today with impairments in pain, lumbar ROM, core strength, hip strength, soft tissue tenderness. 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 Pt expresses correction goal of reducing pain, and is motivated to work towards this in PT. Clinical presentation today is most consistent with signs and sx associated with low back pain and pt will benefit from skilled PT 2 week x 4 weeks to address the following problems and impairments noted upon evaluation: pain, lumbar ROM, core strength, hip strength, soft tissue tenderness. These problems limit the patient with the following functional activities: work, ambulating, stair negotiation, ADLs. The prescribed treatment plan of care is medically necessary. Co-morbidities of hx R hip replacement 2013 were identified and taken into considerations of plan of care. Pt was educated on HEP, role of PT, prognosis, POC. Frequency and Duration: The patient will be seen 2 x week x 4 weeks Short Term Goals: Pt will demonstrate improved hip MMT strength by 1/3 grade in 2 weeks for improved lumbopelvic stability. Pt will demonstrate centralization of sx in 2 weeks. Pt will demonstrate ability to move through available ROM with min to no pain in 2 weeks. Fci Goals: Pt will demonstrate improved Hien score by 10% in 4 weeks for improved functional mobility. Pt will demonstrate ability to work a full day with min to no pain/sx in 4 weeks for improved tolerance to work. Pt will demonstrate improved tolerance to ADLs with min to no pain in 4 weeks for return to PLOF. Treatment Plan: Modalities to reduce pain, spasms and effusion. Manual therapy to restore motion and function. Therapeutic exercise to improve strength and flexibility. Neuromuscular re-education for posture and balance. Therapeutic activities to return to functional activities of daily living. Electronically signed by: Danielle Guthrie PT, DPT, ATC Please sign and return to therapist. Thank you for your referral.
--- NOTE | 2024-07-12 10:55 | MHC.PT.DC ---
[facility] Office [place] Office [place] Office [address] Kanwal Peacock [address] [facility] [phone] F: [phone] F: [phone] F: [phone] F: [phone] Physical Therapy Discharge Report Diagnosis: low back pain Date of Surgery: n/a Date of Evaluation: 04/21/24 Date of Discharge: 07/12/24 Treatments to Date: 4 Cancellations to Date: 4 No Shows to Date: 0 Discharge Status: Discharge Summary: Pt has not attended skilled PT in >30 days and therefore to be d/c. Electronically signed by: Danielle Guthrie, PT, DPT, ATC Please sign and return to therapist. Thank you for your referral.
== END 2024-07-12 10:55 | disposition home or self-care (01) ==
LOC: HO.PTCHIC 09:00
PROVIDERS: PCP Internal Medicine; Visit Provider Internal Medicine
DX: M54.50 Low back pain, unspecified (principal); G89.29 Other chronic pain
CPT/HCPCS: 97110; 97161

== ENCOUNTER 2024-08-04 11:35 | Outpatient (REF) | payer BC, SELFPAY ==
[2024-08-04 13:17] LABS: MANUAL DIFF FLAG NO
[2024-08-04 13:30] LABS: Basophils Absolute Auto 0.1 X10*3/uL (0.0-0.2); Basophils Percent Auto 0.8 % (0-2); Eosinophils Absolute Auto 0.4 X10*3/uL (0.0-0.4); Eosinophils Percent Auto 5.4 % (0-4); Hematocrit 37.4 % (37.0-47.0); Hemoglobin 12.1 g/dl (12.0-16.0); Imm Gran Abs Auto 0.03 X10*3/uL (0.00-0.03); Imm Gran Pct Auto 0.4 % (0.0-0.4); Lymphocytes Absolute Auto 2.2 X10*3/uL (1.2-4.9); Lymphocytes Percent Auto 29.8 % (20-40); Mean Corpuscular HGB Conc 32.4 g/dl (31.0-35.0); Mean Corpuscular Hemoglobin 27.8 pg (27.0-33.0); Mean Platelet Volume 9.5 fL (9.4-12.3); Monocytes Absolute Auto 0.6 X10*3/uL (0.1-1.2); Neutrophils Absolute Auto 4.1 x10*3/uL (2.0-8.3); Neutrophils Percent Auto 55.6 % (45-73); Platelet Count 393 X10*3/uL (160-400); Red Blood Count 4.35 X10*6/uL (4.20-5.50); Red Cell Distribution Width 13.7 % (11.0-16.0); White Blood Count 7.4 X10*3/uL (4.8-10.8)
[2024-08-04 13:42] LABS: Alanine Aminotransferase 23 U/L (0-31); Aspartate Amino Transferase 26 U/L (5-31)
[2024-08-04 13:43] LABS: Estimated Average Glucose 151 mg/dL; Hemoglobin A1C 167.3988 umol/L; Hemoglobin A1c % 6.9 % (<6.0); Total Hemoglobin (HGBA1C) 3236.6629 umol/L
[2024-08-04 13:54] LABS: Creatinine Urine 180.24 mg/dL; Microalbum/Creatinine Ratio Ur 7.7 ug/mg cr (<30)
[2024-08-04 13:57] LABS: Alanine Aminotransferase 26 U/L (0-31); Alkaline Phosphatase 62 U/L (39-117); Anion Gap 12 (12-20); Aspartate Amino Transferase 25 U/L (5-31); Bilirubin Total 0.3 mg/dL (0.0-1.0); Blood Urea Nitrogen 21 mg/dL (9-16); Calcium 9.5 mg/dL (8.4-10.2); Carbon Dioxide 30 mmol/L (22-29); Chloride 104 mmol/L (96-108); Cholesterol 122 mg/dL (<200); Estimated Glomerular Filt Rate > 60; Glucose Fasting 126 mg/dL (60-99); Glucose Random 126 mg/dL (60-115); HDL Cholesterol 31 mg/dL (>40); LDL Cholesterol Calculated 61 mg/dL (<100); Potassium 4.8 mmol/L (3.3-5.1); Sodium 141 mmol/L (135-145); Total Protein 7.2 g/dL (6.5-8.0); Triglycerides 151 mg/dL (<150)
[2024-08-04 14:11] LABS: Erythrocyte Sedimentation Rate 25 MM/HR (0-20)
[2024-08-04 14:18] LABS: Vitamin B12 325 pg/mL (200-900)
[2024-08-04 14:27] LABS: Ferritin 334 ng/mL (10-250); TSH reflex Free T4 1.61 uIU/mL (0.32-4.0)
[2024-08-09 16:42] LABS: Vitamin D 25-OH, D2 <4 ng/mL; Vitamin D 25-OH, D3 56 ng/mL; Vitamin D 25-OH, Total 56 ng/mL (30-100)
== END 2024-08-04 11:36 | disposition home or self-care (01) ==
LOC: HO.HMGCLDS 11:35
PROVIDERS: Psychiatry & Neurology Neurology; PCP Internal Medicine; Referring Provider Internal Medicine Hypertension Specialist; Visit Provider Internal Medicine
DX: R25.2 Cramp and spasm (principal); E11.9 Type 2 diabetes mellitus without complications; E78.1 Pure hyperglyceridemia; I10 Essential (primary) hypertension
CPT/HCPCS: 36415; 80048; 80053; 80061; 82043; 82306; 82570; 82607; 82728; 82746; 83036; 84443; 84450; 84460; 85025; 85652

== ENCOUNTER 2024-08-10 09:09 | Outpatient (AMB) | payer BC, SELFPAY ==
--- NOTE | 2024-08-10 09:17 | MHC.PC.OV ---
Vital Signs 08/10/24 09:18 Height 5 ft 2 in Weight 240 lb BMI 43.9 BP 144/82 H Blood Pressure Location Lt brachial Position Sitting Pulse 69 Pulse Source Pulse Oximeter Pulse Oximetry (%) 98 Oxygen Delivery Method Room Air Intake Visit Reasons: 6 month follow up Intake Note: Pt is here today for her 6 mo. f/u labs Allergies No Known Allergies Allergy (Mild, Verified 08/10/24 09:53) NONE Medication List - Last Reconciled 08/10/24 by Olesya Fairbanks MD cholecalciferol (vitamin D3) 50 mcg PO DAILY cyclosporine 0.05% (Restasis) 1 drp ophthalmic (eye) DAILY fenofibrate 120 mg PO DAILY gabapentin 1-3 caps orally bedtime; loratadine 10 mg PO DAILY PRN losartan-hydrochlorothiazide 100-12.5 mg 1 tab PO DAILY meloxicam 15 mg PO DAILY PRN metformin ER 500 mg PO QPM metoprolol succinate ER 100 mg PO DAILY omeprazole 20 mg PO QAM tizanidine 2 mg PO TID PRN Tobacco use date assessed: 08/10/24 Dental Screening Dental Screen Date: 08/10/24 Did you have a dental visit in the last 12 months?: Yes Did you have a dental problem in the last 6 months where you did not have access to dental care?: Yes Was dental information given to patient?: Patient has dentist HPI 6 month follow up HPI Details 64-year-old female here today for follow-up of her Type 2 Diabetes Mellitus. Her diabetes management includes metformin taken at night. Recent lab results showed an A1c of 6.9%, indicating improvement from previous records where levels were as high as 7.3%. The patient's average blood sugar over the past three months is 151, and her morning sugar level was noted at 126. . Dietary management and physical activity were discussed as integral parts of her diabetes management. The patient also expressed concerns about weight loss strategies, including bariatric options. [facility] Medical History Muscle cramps Type 2 diabetes mellitus without complication, without long-term current use of insulin Seasonal allergies Chronic low back pain Adenomatous polyp of colon Cough due to KAYLAH inhibitor Trigger thumb of right hand Varicose veins of right lower extremity with pain Morbid obesity Patellofemoral arthritis Rotator cuff tear, right Left carpal tunnel syndrome Gallstone pancreatitis Hypertriglyceridemia DENYS on CPAP GERD (gastroesophageal reflux disease) Essential hypertension Surgical History History of carpal tunnel surgery History of arthroscopy of right shoulder H/O medial meniscus repair of right knee History of right hip replacement H/O colonoscopy History of cholecystectomy Family History Father Multiple sclerosis Alzheimer disease Diabetes Congestive heart failure Mother Breast cancer Ovarian cancer Hypertension Maternal Aunt Breast cancer Maternal Grandmother Breast cancer Daughter Mental health disorder History of fundoplication Social History Housing: House Alcohol intake: never Patient Tobacco Use Status: Never used Tobacco e-Cigarette/Vaping Use: Never Used Second Hand Smoke Exposure: No service: No Current occupational status: employed 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 1. Little interest or pleasure in doing things: not at all 2. Feeling down, depressed, or hopeless: not at all 3. Trouble falling or staying asleep, or sleeping too much: several days 4. Feeling tired or having little energy: several days 5. Poor appetite or overeating: not at all 6. Feeling bad about yourself - or that you are a failure or have let yourself or your family down: not at all 7. Trouble concentrating on things, such as reading the newspaper or watching television: not at all 8. Moving or speaking so slowly that other people could have noticed. Or the opposite - being so fidgety or restless that you have been moving around a lot more than usual: not at all 9. Thoughts that you would be better off or of hurting yourself in some way: not at all Total score: 2 Depression Screening Interpretation: Negative Depression Screening Done: Yes 57178 - PHQ-9 Billing: Yes Source: Developed by Drs. Stevan Winston, Mari Wallis, Rusty Griffin and colleagues, with an educational erica from [employer]. Thrive Questionnaire Date Thrive assessed: 08/10/24 I am a: Patient What is your living situation today?: I have a steady place to live Within the past 12 months, did the food you bought not last and you didn't have the money to get more?: Never true Within the past 12 months, did you worry whether your food would run out before you got money to buy more?: Never true Do you have trouble paying for medicines?: No Do you have trouble getting transportation to medical appointments?: No Do you have trouble paying your heating and electricity bill?: No Do you have trouble taking care of your child, family member or friend?: No Do you have trouble with day-to-day activities such as bathing, preparing meals, shopping, managing finances, etc.?: No Are you currently unemployed and looking for a job?: No Are you interested in more education?: No Please select the resources that you would like help with: None Currently or been in a relationship where the following occur: No concerns reported THRIVE Score: 0 AUDIT C Alcohol Use Questionnaire (AUDIT-C) 1. How often do you have a drink containing alcohol?: Never Total Score: 0 YADIEL-7 AMB Questionnaire YADIEL-7 Date YADIEL - 7 assessed: 08/10/24 Feeling nervous, anxious, or on edge: 0 = Not at all Not being able to stop or control worryin = Not at all Worrying too much about different things: 0 = Not at all Trouble relaxin = Not at all Being so restless that it is hard to sit still: 0 = Not at all Becoming easily annoyed or irritable: 0 = Not at all Feeling afraid as if something awful might happen: 0 = Not at all Total YADIEL-7 score (0-4 normal; 5-9 mild; 10-14 moderate; 15-21 severe): 0 Source: Developed by Drs. Stevan Winston, Mari Wallis, Rusty Griffin and colleagues, with an educational erica from [employer]. Review of Systems Const Reports no additional complaints and Reports weight loss Eyes Denies change in vision ENT Reports Normal hearing present Card Denies chest pain with activity, Denies irregular heart rhythm, Denies lightheadedness, Denies dyspnea and Denies dyspnea on exertion Resp Denies cough, Denies dyspnea and Denies dyspnea on exertion GI Denies abdominal pain, Denies bloating, Denies heartburn and Denies nausea Reports no additional complaints Musc Denies joint swelling and Denies muscle weakness Neuro Reports Normal hearing present and Denies Sensory deficit (Neuro) Psych Denies anxiety, Denies depression, Denies irritability and Denies panic attacks Endo Denies polyphagia and Denies polydipsia Félix/Lymph Denies easy bleeding and Denies easy bruising Aller/Immun Reports no additional complaints Physical exam (Primary Care) Vital Signs: Last Vital Signs Pulse 69 08/10/24 09:18 BP 144/82 H 08/10/24 09:18 Pulse Ox 98 08/10/24 09:18 Oxygen Delivery Method Room Air 08/10/24 09:18 BMI result Body Mass Index 43.9 BMI Assessment/Plan discussion: High BMI High, discussed plan: lifestyle Tobacco/Smoking Status: Tobacco use Status Tobacco use date assessed 08/10/24 08/10/24 09:19 Patient Tobacco Use Status Never used Tobacco 08/10/24 09:19 e-Cigarette/Vaping Use Never Used 08/10/24 09:19 PHQ-9: PHQ-9 Score PHQ-9: Total score 2 08/10/24 10:21 Depression Screening Interpretation: Negative Thrive Assessment: Date of Thrive Assessment Date Thrive assessed 08/10/24 08/10/24 09:25 Currently or been in a relationship where the following occur: No concerns reported Const General: no acute distress, alert and awake Nutritional Appearance: obese morbidly obese Orientation/consciousness: patient oriented x3 HENMT Ears: external ears normal General nose exam: Normal external nose present Face and sinus: Yes face symmetric Mouth: Normal oral and palatal mucosa present, oropharynx normal and moist mucous membranes Eyes General: appearance normal, both eyes and all related structures Neck Neck: Yes full ROM, Yes no lymphadenopathy and Yes supple Thyroid: Thyroid normal Resp Auscultation: clear to auscultation bilaterally Cardio Palpation: normal PMI Rate: regular rate Rhythm: regular rhythm Heart sounds: S1 normal heart sound present and S2 normal heart sound present GI Inspection: Yes normal to inspection and Yes Abdominal panniculus present Auscultation: normal bowel sounds Neuro General: patient oriented x3, gait normal, tone normal, moves all extremities, Normal light touch and pain sensation and no focal motor deficits Cranial nerves: Yes Normal hearing present Sensory Exam: No Sensory deficit (Neuro) Extrem General: Yes full ROM and Yes no joint enlargement Office Procedures Flu Questionnaire Does the patient have a severe egg allergy?: No Does the patient have severe life threatening allergies?: No Does the patient have a fever or illness today?: No Has the patient ever had Guillain-[place] Syndrome?: No Has the patient ever had any past reaction to a flu shot?: No Immunizations Fluarix Triv [id number] (PF) 45 mcg (15 mcg x 3)/0.5 mL IM syringe Performing Provider: Olesya Fairbanks MD Performing Location: [facility] Administered by: Keily Rao CMA on 08/10/24 09:34 Dose Route Admin Location Dispensed Lot Number Expiration Date [facility] Transmission Calibration Engineer 0.5 mL IM Left Deltoid 0.5 mL [id number] 03/14/25 15463-131-20 [employer] VIS Given Date VIS Provided VIS Publication Date 08/10/24 Single Vaccine 21 Eligibility Eligibility Date Funding Source Not [facility] Eligible 08/10/24 Private Results Reviewed Results Reviewed: Name: Winter Duron Age/Sex: 64/F : 1960 Unit#: [id number] Attend Dr: Olesya Fairbanks MD Re08/04/24 Status: DEP REF Location: [facility] Disch: SPEC : [id number] GAEL: 08/04/24 STATUS: COMP REQ : [id number] RECD: 08/04/24-[address]: Jenna Pastrana MD COMP: 08/04/24-1138 ENTERED: 08/04/24-[address]: Olesya Fairbanks MD ORDERED: CBC Auto Diff Test Result Flag Reference WBC 7.4 4.8-10.8 X10*3/uL RBC 4.35 4.20-5.50 X10*6/uL HGB 12.1 12.0-16.0 g/dl HCT 37.4 37.0-47.0 % MCV 86.0 80.0-98.0 fL MCH 27.8 27.0-33.0 pg MCHC 32.4 31.0-35.0 g/dl RDW 13.7 11.0-16.0 % PLT 393 160-400 X10*3/uL MPV 9.5 9.4-12.3 fL Neut Pct Auto 55.6 45-73 % ImGran Pct Auto 0.4 0.0-0.4 % Lymp Pct Auto 29.8 20-40 % [place] Pct Auto 8.0 2-11 % Eos Pct Auto 5.4 H 0-4 % Baso Pct Auto 0.8 0-2 % NRBC Pct Auto 0.0 0.0-0.2 /100WBC ANC Neut Abs # 4.1 2.0-8.3 x10*3/uL ImGran Abs Auto 0.03 0.00-0.03 X10*3/uL Lymph Abs Auto 2.2 1.2-4.9 X10*3/uL [place] Abs Auto 0.6 0.1-1.2 X10*3/uL Eos Abs Auto 0.4 0.0-0.4 X10*3/uL Baso Abs Auto 0.1 0.0-0.2 X10*3/uL NRBC Abs Auto 0.000 0.0-0.012 X10*3/uL Laboratory Tests 04/05/21 09/14/21 01/16/24 08:55 11:15 14:58 Sodium 143 Potassium 4.4 Chloride 109 H Carbon Dioxide 30 H Anion Gap 8 L BUN 17 H Creatinine 0.71 Estimated GFR > 60 Fasting Glucose 103 H Estimat Average Glucose Hemoglobin A1c % 7.3 H Calcium 9.4 AST 17 ALT 21 Triglycerides 258 203 Cholesterol 173 163 LDL Cholesterol, Calc 91 HDL Cholesterol 32 25-OH Vitamin D Total 42.6 02/06/24 08/04/24 08:53 11:41 Sodium Potassium Chloride Carbon Dioxide Anion Gap BUN Creatinine Estimated GFR Fasting Glucose Estimat Average Glucose 151 Hemoglobin A1c % 7.0 H 6.9 H Calcium AST ALT Triglycerides Cholesterol LDL Cholesterol, Calc HDL Cholesterol 25-OH Vitamin D Total Laboratory Tests 08/04/24 11:41 Urine Creatinine 180.24 Urine Microalbumin 14.0 Microalb/Creat Ratio 7.7 Coding Level of Care Code Est Pt Level 4 (72219) Complex EM visit Add On G2211 Diagnoses Essential hypertension I10 Hypertriglyceridemia E78.1 Morbid obesity E66.01 Type 2 diabetes mellitus without complication, without long-term current use of insulin E11.9 Additional Codes PHQ-9 - 93822 - PHQ-9 Billing: Yes ([id number]) Assessment & Plan Assessment & Plan (1) Essential hypertension: Code(s): I10 - Essential (primary) hypertension Category: Medical (2) Hypertriglyceridemia: Code(s): E78.1 - Pure hyperglyceridemia Category: Medical (3) Morbid obesity: Code(s): E66.01 - Morbid (severe) obesity due to excess calories Category: Medical (4) Type 2 diabetes mellitus without complication, without long-term current use of insulin: Code(s): E11.9 - Type 2 diabetes mellitus without complications Category: Medical Plan I discussed with the patient her diagnosis of Type 2 Diabetes Mellitus and the importance of continuing her current medication, metformin, to manage sugar levels. We reviewed her recent lab work, which showed improvements in her A1c and blood sugar levels, signifying good progress. I explained the potential adjustment of diabetes medication and the addition of Jardiance to her regimen. We also addressed her essential hypertension, and I reiterated the need for continued adherence to her current antihypertensive medications. Regarding her concerns about obesity, I detailed the benefits and risks of possible weight loss strategies, including medication and lifestyle interventions. I emphasized the need for regular exercise and portion control to aid in weight management. I also addressed her insomnia, suggesting a trial of ropinorole, and reviewed its potential benefits for restless leg syndrome. We scheduled a follow-up appointment in three months to reassess her diabetes management and blood pressure control. The importance of regular monitoring and maintaining lifestyle changes was stressed. - Continue taking current blood pressure and diabetes medications as prescribed. - Engage in daily physical activity as tolerated, aiming for at least 15 minutes of exercise daily, and increase as tolerated. - Follow dietary recommendations, focusing on portion control and meal spacing throughout the day. - Begin taking Jardiance in the morning, an hour before breakfast. - Trial ropinorole as instructed for restless leg syndrome. - Monitor blood pressure and blood sugar levels regularly. - Schedule a follow-up visit in three months for further evaluation of diabetes management and lifestyle interventions. - Contact me if experiencing any adverse effects or concerns related to medications. Orders: Orders Lipid Panel 11/13/24 E11.9 - Type 2 diabetes mellitus without complications, E66.01 - Morbid (severe) obesity due to excess calories, E78.1 - Pure hyperglyceridemia, I10 - Essential (primary) hypertension Hemoglobin A1c 11/13/24 E11.9 - Type 2 diabetes mellitus without complications, E66.01 - Morbid (severe) obesity due to excess calories, E78.1 - Pure hyperglyceridemia, I10 - Essential (primary) hypertension Alanine Aminotransferase 11/13/24 E11.9 - Type 2 diabetes mellitus without complications, E66.01 - Morbid (severe) obesity due to excess calories, E78.1 - Pure hyperglyceridemia, I10 - Essential (primary) hypertension Aspartate Amino Transferase 11/13/24 E11.9 - Type 2 diabetes mellitus without complications, E66.01 - Morbid (severe) obesity due to excess calories, E78.1 - Pure hyperglyceridemia, I10 - Essential (primary) hypertension Microalbumin, Random (w Creat) 11/13/24 E11.9 - Type 2 diabetes mellitus without complications, E66.01 - Morbid (severe) obesity due to excess calories, E78.1 - Pure hyperglyceridemia, I10 - Essential (primary) hypertension Influenza [id number] Immunization 08/10/24 Z23 - Encounter for immunization Basic Metabolic Panel Fasting 11/13/24 E11.9 - Type 2 diabetes mellitus without complications, E66.01 - Morbid (severe) obesity due to excess calories, E78.1 - Pure hyperglyceridemia, I10 - Essential (primary) hypertension Medications: New empagliflozin (Jardiance) 10 mg PO DAILY 30 tabs 5RF
[2024-08-10 09:18] VITALS: BP 144/82; PULSE 69; O2SAT 98; BMI 43.9
== END 2024-08-10 14:59 | disposition home or self-care (01) ==
PROVIDERS: PCP Internal Medicine; Visit Provider Internal Medicine
DX: I10 Essential (primary) hypertension (principal); E66.01 Morbid (severe) obesity due to excess calories; E11.9 Type 2 diabetes mellitus without complications; Z68.41 Body mass index [BMI] 40.0-44.9, adult; E78.1 Pure hyperglyceridemia

== ENCOUNTER → 2024-08-10 09:09 | Outpatient (BNVA) | payer BC, SELFPAY | PROVIDERS: PCP Internal Medicine; Visit Provider Internal Medicine | DX: I10 Essential (primary) hypertension (principal); E78.1 Pure hyperglyceridemia; E11.9 Type 2 diabetes mellitus without complications; E66.01 Morbid (severe) obesity due to excess calories; Z68.41 Body mass index [BMI] 40.0-44.9, adult; Z23 Encounter for immunization | CPT/HCPCS: 90471; 90656; 96127 ==

== ENCOUNTER 2025-01-11 11:10 | Outpatient (REF) | payer BC, SELFPAY ==
[2025-01-11 13:34] LABS: Alanine Aminotransferase 26 U/L (0-31); Anion Gap 14 (12-20); Aspartate Amino Transferase 28 U/L (5-31); Blood Urea Nitrogen 27 mg/dL (9-16); Calcium 9.5 mg/dL (8.4-10.2); Carbon Dioxide 27 mmol/L (22-29); Chloride 105 mmol/L (96-108); Cholesterol 131 mg/dL (<200); Estimated Glomerular Filt Rate 58; Glucose Fasting 121 mg/dL (60-99); HDL Cholesterol 31 mg/dL (>40); LDL Cholesterol Calculated 63 mg/dL (<100); Potassium 4.4 mmol/L (3.3-5.1); Sodium 142 mmol/L (135-145); Triglycerides 185 mg/dL (<150)
[2025-01-11 13:35] LABS: Estimated Average Glucose 146 mg/dL; Hemoglobin A1C 153.4258 umol/L; Hemoglobin A1c % 6.7 % (<6.0); Total Hemoglobin (HGBA1C) 3105.7393 umol/L
[2025-01-11 13:58] LABS: Creatinine Urine 124.18 mg/dL; Microalbum/Creatinine Ratio Ur 8.8 ug/mg cr (<30)
== END 2025-01-11 11:11 | disposition home or self-care (01) ==
LOC: HO.HMGCLDS 11:10
PROVIDERS: PCP Internal Medicine; Visit Provider Internal Medicine
DX: E11.9 Type 2 diabetes mellitus without complications (principal); E66.01 Morbid (severe) obesity due to excess calories; E78.1 Pure hyperglyceridemia; I10 Essential (primary) hypertension
CPT/HCPCS: 36415; 80048; 80061; 82043; 82570; 83036; 84450; 84460

== ENCOUNTER 2025-01-18 09:40 | Outpatient (AMB) | payer BC, SELFPAY ==
[2025-01-18 10:29] VITALS: BP 104/64; PULSE 81; RESP 16; TEMP 36.7; O2SAT 98; BMI 43.0
--- NOTE | 2025-01-18 10:29 | MHC.PC.OV ---
Vital Signs 01/18/25 10:29 Height 5 ft 2 in Weight 235 lb BMI 43.0 BP 104/64 Blood Pressure Location Lt brachial Position Sitting Respiration 16 Pulse 81 Pulse Source Pulse Oximeter Temp 98.0 F Temp Source Oral Pulse Oximetry (%) 98 Oxygen Delivery Method Room Air Intake Visit Reasons: Annual PE - due for Colorectal Cancer Screening Intake Note: Pt is here today for her PE: Last mammogram 07/30/22, papsmear 09/20/21, colonoscopy 07/26/15 Allergies No Known Allergies Allergy (Mild, Verified 01/18/25 10:50) NONE Medication List - Last Reconciled 01/18/25 by Olesya Fairbanks MD azelastine 2 sprays intranasal DAILY PRN cholecalciferol (vitamin D3) 50 mcg PO DAILY cyclosporine 0.05% (Restasis) 1 drp ophthalmic (eye) DAILY empagliflozin (Jardiance) 10 mg PO DAILY fenofibrate 120 mg PO DAILY gabapentin 1-3 caps orally bedtime; loratadine 10 mg PO DAILY PRN losartan-hydrochlorothiazide 100-12.5 mg 1 tab PO DAILY meloxicam 15 mg PO DAILY PRN metformin ER 500 mg PO ONCE metoprolol succinate ER 100 mg PO DAILY omeprazole 20 mg PO QAM tizanidine 2 mg PO TID PRN Tobacco use date assessed: 01/18/25 Dental Screening Dental Screen Date: 01/18/25 Did you have a dental visit in the last 12 months?: Yes Did you have a dental problem in the last 6 months where you did not have access to dental care?: No Was dental information given to patient?: Patient has dentist HPI Annual PE - due for Colorectal Cancer Screening HPI Details 64-year-old lady with history of hyperlipidemia, environmental seasonal allergies, diabetes mellitus, hypertension, gastroesophageal reflux disease, obesity who obstructive sleep apnea on CPAP, here today for her physical exam. She is overdue for her screening mammogram, last done in 2021 . Had her cervical cancer screening done in 2019 with benign findings, and had her last colonoscopy in 2014, would removal of a serrated polyp overdue for repeat colonoscopy. [facility] Medical History (Updated 01/18/25 @ 11:21 by Olesya Fairbanks MD) Family history of malignant neoplasm of ovary in first degree relative Obesity (BMI 30-39.9) Diabetes mellitus with hyperglycemia, without long-term current use of insulin Muscle cramps Type 2 diabetes mellitus without complication, without long-term current use of insulin Seasonal allergies Chronic low back pain Adenomatous polyp of colon Cough due to KAYLAH inhibitor Trigger thumb of right hand Varicose veins of right lower extremity with pain Morbid obesity Patellofemoral arthritis Rotator cuff tear, right Left carpal tunnel syndrome Gallstone pancreatitis Hypertriglyceridemia DENYS on CPAP GERD (gastroesophageal reflux disease) Essential hypertension Surgical History History of carpal tunnel surgery History of arthroscopy of right shoulder H/O medial meniscus repair of right knee History of right hip replacement H/O colonoscopy History of cholecystectomy Family History Father Multiple sclerosis Alzheimer disease Diabetes Congestive heart failure Mother Breast cancer Ovarian cancer Hypertension Maternal Aunt Breast cancer Maternal Grandmother Breast cancer Daughter Mental health disorder History of fundoplication Social History Housing: House Alcohol intake: never Patient Tobacco Use Status: Never used Tobacco e-Cigarette/Vaping Use: Never Used Second Hand Smoke Exposure: No service: No Current occupational status: employed 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 1. Little interest or pleasure in doing things: not at all 2. Feeling down, depressed, or hopeless: not at all 3. Trouble falling or staying asleep, or sleeping too much: not at all 4. Feeling tired or having little energy: several days 5. Poor appetite or overeating: not at all 6. Feeling bad about yourself - or that you are a failure or have let yourself or your family down: not at all 7. Trouble concentrating on things, such as reading the newspaper or watching television: not at all 8. Moving or speaking so slowly that other people could have noticed. Or the opposite - being so fidgety or restless that you have been moving around a lot more than usual: not at all 9. Thoughts that you would be better off or of hurting yourself in some way: not at all Total score: 1 Depression Screening Interpretation: Negative Depression Screening Done: Yes 75021 - PHQ-9 Billing: Yes Source: Developed by Drs. Stevan Winston, Rusty Cline and colleagues, with an educational erica from [employer]. Thrive Questionnaire Date Thrive assessed: 01/18/25 I am a: Patient What is your living situation today?: I have a steady place to live Within the past 12 months, did the food you bought not last and you didn't have the money to get more?: Never true Within the past 12 months, did you worry whether your food would run out before you got money to buy more?: Never true Do you have trouble paying for medicines?: No Do you have trouble getting transportation to medical appointments?: No Do you have trouble paying your heating and electricity bill?: No Do you have trouble taking care of your child, family member or friend?: No Do you have trouble with day-to-day activities such as bathing, preparing meals, shopping, managing finances, etc.?: No Are you currently unemployed and looking for a job?: No Are you interested in more education?: No Please select the resources that you would like help with: None Currently or been in a relationship where the following occur: No concerns reported THRIVE Score: 0 AUDIT C Alcohol Use Questionnaire (AUDIT-C) 1. How often do you have a drink containing alcohol?: Never Total Score: 0 YADIEL-7 AMB Questionnaire YADIEL-7 Date YADIEL - 7 assessed: 01/18/25 Feeling nervous, anxious, or on edge: 0 = Not at all Not being able to stop or control worryin = Not at all Worrying too much about different things: 0 = Not at all Trouble relaxin = Not at all Being so restless that it is hard to sit still: 0 = Not at all Becoming easily annoyed or irritable: 0 = Not at all Feeling afraid as if something awful might happen: 0 = Not at all Total YADIEL-7 score (0-4 normal; 5-9 mild; 10-14 moderate; 15-21 severe): 0 Source: Developed by Mari Casanova Kurt Kroenke and colleagues, with an educational erica from [employer]. Review of Systems Const Reports no additional complaints and Reports weight loss Eyes Denies change in vision ENT Reports Normal hearing present Card Denies chest pain with activity, Denies irregular heart rhythm, Denies lightheadedness, Denies dyspnea and Denies dyspnea on exertion Resp Denies cough, Denies dyspnea and Denies dyspnea on exertion GI Denies abdominal pain, Denies bloating, Denies heartburn and Denies nausea Reports no additional complaints Musc Denies joint swelling and Denies muscle weakness Skin/Breast Denies breast pain, Denies breast mass and Denies rash Neuro Reports Normal hearing present and Denies Sensory deficit (Neuro) Psych Denies anxiety, Denies depression, Denies irritability and Denies panic attacks Endo Denies polyphagia and Denies polydipsia Félix/Lymph Denies easy bleeding and Denies easy bruising Aller/Immun Reports no additional complaints Physical exam (Primary Care) Vital Signs: Last Vital Signs Temp 98.0 F 01/18/25 10:29 Pulse 81 01/18/25 10:29 Resp 16 01/18/25 10:29 BP 104/64 01/18/25 10:29 Pulse Ox 98 01/18/25 10:29 Oxygen Delivery Method Room Air 01/18/25 10:29 BMI result Body Mass Index 43.0 BMI Assessment/Plan discussion: High BMI High, discussed plan: lifestyle Tobacco/Smoking Status: Tobacco use Status Tobacco use date assessed 01/18/25 01/18/25 10:32 Patient Tobacco Use Status Never used Tobacco 01/18/25 10:32 e-Cigarette/Vaping Use Never Used 01/18/25 10:32 PHQ-9: PHQ-9 Score PHQ-9: Total score 1 01/18/25 11:10 Depression Screening Interpretation: Negative Thrive Assessment: Date of Thrive Assessment Date Thrive assessed 01/18/25 01/18/25 10:39 Currently or been in a relationship where the following occur: No concerns reported Advance Care Planning discussion: Completed/Scanned Date of discussion: 01/18/25 Who was present: patient Forms completed: Health Care Proxy Time spent: 16-45 minutes Actual minutes spent: 3 Const General: no acute distress, alert and awake Nutritional Appearance: obese morbidly obese Orientation/consciousness: patient oriented x3 HENMT Ears: external ears normal General nose exam: Normal external nose present Face and sinus: Yes face symmetric Mouth: Normal oral and palatal mucosa present, oropharynx normal and moist mucous membranes Eyes General: appearance normal, both eyes and all related structures Neck Neck: Yes full ROM, Yes no lymphadenopathy and Yes supple Thyroid: Thyroid normal Chest Chest palpation & inspection: normal inspection of the chest Breast/axilla palpation: normal palpation of the breasts Resp Auscultation: clear to auscultation bilaterally Cardio Palpation: normal PMI Rate: regular rate Rhythm: regular rhythm Heart sounds: S1 normal heart sound present and S2 normal heart sound present GI Inspection: Yes normal to inspection and Yes Abdominal panniculus present Auscultation: normal bowel sounds General: Yes no CVA tenderness Back/Spine/Pelvis Back: no CVA tenderness and No back tenderness Skin General skin exam: no rashes or lesions noted Neuro General: patient oriented x3, gait normal, tone normal, moves all extremities, Normal light touch and pain sensation and no focal motor deficits Cranial nerves: Yes Normal hearing present Sensory Exam: No Sensory deficit (Neuro) Extrem General: Yes full ROM and Yes no joint enlargement Psych Appearance: grossly normal and well kempt Mental Status: mental status grossly normal Speech and movement: Normal speech and movement present Affect: normal affect Results Reviewed Results Reviewed: maikel: OliverioWinter M Age/Sex: 64/F : 1960 Unit#: [id number] Attend Dr: Olesya Fairbanks MD Re01/11/25 Status: DEP REF Location: [facility] Disch: SPEC : [id number] GAEL: 01/11/25 STATUS: COMP REQ : [id number] RECD: 01/11/[address]: Olesya Fairbanks MD COMP: 01/11/258 ENTERED: 01/11/[address]: ORDERED: KDRU Test Result Flag Reference Creat, Ur 124.18 mg/dL Microalbumin Ur 11.0 mg/L Alb/Creat Ratio 8.8 <30 ug/mg cr Albumin/Creatinine Ratio Reference Ranges: Normal: < 30 ug/mg creatinine Microalbuminuria: 30 - 300 ug/mg creatinine Clinical Albuminuria: > 300 ug/mg creatinine Laboratory Tests 01/11/25 11:21 Estimat Average Glucose 146 Hemoglobin A1c % 6.7 H Name: Winter Duron Age/Sex: 64/F : 1960 Unit#: [id number] Attend Dr: Olesya Fairbanks MD Re01/11/25 Status: DEP [facility] Disch: SPEC : [id number] GAEL: 01/11/25 STATUS: COMP REQ : [id number] RECD: 01/11/25-[address]: Olesya Fairbanks MD COMP: 01/11/25 ENTERED: 01/11/[address]: ORDERED: Met Prof Fast, AST, ALT, Lipid Panel Test Result Flag Reference Sodium 142 135-145 mmol/L Potassium 4.4 3.3-5.1 mmol/L CL 105 96-108 mmol/L CO2 27 22-29 mmol/L Gap 14 12-20 BUN 27 H 9-16 mg/dL Creat 0.97 0.5-1.4 mg/dL eGFR 58 Chronic Kidney Disease: Estimated GFR < 60 mL/min/1.73m2 Severe Kidney Disease: Estimated GFR < 15 mL/min/1.73m2 FBS 121 H 60-99 mg/dL A fasting glucose from 100-125 mg/dl is considered impaired (pre-diabetes). CA 9.5 8.4-10.2 mg/dL AST (GOT) 28 5-31 U/L ALT (GPT) 26 0-31 U/L Triglyceride 185 H <150 mg/dL Desirable Triglyceride: less than 150 mg/dL Borderline High Triglyceride 150-199 mg/dL High Triglyceride: 200-499 mg/dL Very High Triglyceride: greater than or equal to 5OO mg/dL Cholesterol 131 <200 mg/dL Desirable Cholesterol: less than 200 mg/dL Borderline High Cholesterol: 200-239 mg/dL High Cholesterol: greater than 239 mg/dL LDL Calculated 63 <100 mg/dL Desirable LDL: less than 100 mg/dL Near Optimal/Above Optimal LDL: 110-129 mg/dL Borderline High LDL: 130-159 mg/dL High LDL: 160-189 mg/dL Very High LDL: greater than or equal to 190 mg/dL HDL 31 L >40 mg/dL Desirable HDL: greater than 40 mg/dL Note: This HDL assay may give artificially low results in patients with liver disease. Coding Level of Care Code Est Pt Prev Care 40-64y(08571) Diagnoses Annual visit for general adult medical examination with abnormal findings Z00.01 Diabetes mellitus with hyperglycemia, without long-term current use of insulin E11.65 Obesity (BMI 30-39.9) E66.9 Family history of malignant neoplasm of ovary in first degree relative Z80.41 Screening for malignant neoplasm of cervix Z12.4 Adenomatous polyp of colon D12.6 Morbid obesity E66.01 Hypertriglyceridemia E78.1 DENYS on CPAP G47.33; Z99.89 GERD (gastroesophageal reflux disease) K21.9 Essential hypertension I10 Seasonal allergies J30.2 Advanced directives, counseling/discussion Z71.89 Additional Codes PHQ-9 - 48521 - PHQ-9 Billing: Yes ([id number]) Vital Signs *Quality* - Advance Care Planning discussion: Completed/Scanned ([id number]) Vital Signs *Quality* - Time spent: 16-45 minutes ([id number]) Assessment & Plan Assessment & Plan (1) Annual visit for general adult medical examination with abnormal findings: Code(s): Z00.01 - Encounter for general adult medical examination with abnormal findings Plan: Reviewed recent fasting lab results with patient. Continued regular dental visit every 6 months and yearly eye exam for diabetes retinopathy screening.. Take adequate calcium in diet and vitamin-D 3 at 2000 IU per cap once a day, in addition to weight-bearing exercises to help maintain good muscle tone and weight control. Instructed to do self-breast exam, and recommended to get yearly mammogram, ordered today. Referred back to [facility] GI per patient request for her repeat colonoscopy (2) Diabetes mellitus with hyperglycemia, without long-term current use of insulin: Code(s): E11.65 - Type 2 diabetes mellitus with hyperglycemia Category: Medical Plan: Empagliflozin stopped, continue on metformin and started on Mounjaro. Reminded to get yearly diabetes retinopathy screening, reinforced importance of following recommended diet and getting at least 30 minutes of moderate intensity exercise 3 to 4 times a week. Have her come back in 3 months for follow-up after fasting labs done. Navigator consult for diabetic teaching and education on proper use of Mounjaro (3) Obesity (BMI 30-39.9): Code(s): E66.9 - Obesity, unspecified Category: Medical Plan: Will start on Mounjaro 2.5 mg injected subcutaneously once a week, reinforced importance of combining this with adherence to healthy eating habits and regular exercise. Possible side effects proper administration of action discussed with patient. See her back for follow-up in 3 months (4) Family history of malignant neoplasm of ovary in first degree relative: Comment: in mother Code(s): Z80.41 - Family history of malignant neoplasm of ovary Category: Medical Plan: Referred to OBGYN for her cervical cancer screening and pelvic exam (5) Screening for malignant neoplasm of cervix: Code(s): Z12.4 - Encounter for screening for malignant neoplasm of cervix Plan: Referral to OBGYN ordered (6) Adenomatous polyp of colon: Code(s): D12.6 - Benign neoplasm of colon, unspecified Category: Medical Plan: Referral already has been made for her to go to [facility] GI patient request for a repeat colonoscopy which is overdue (7) Morbid obesity: Code(s): E66.01 - Morbid (severe) obesity due to excess calories Category: Medical Plan: Reinforced importance of following healthy eating habits and getting regular exercise. Will start on Mounjaro 2.5 mg injected subcutaneously once a week referred to nurse navigator for dietary guidance and education on proper use of the medication. (8) Hypertriglyceridemia: Code(s): E78.1 - Pure hyperglyceridemia Category: Medical Plan: Continue fenofibrate 120 mg daily (9) DENYS on CPAP: Comment: Moderate to severe degree of sleep apnea. The AHI was 22/hr and oxygen arnulfo was 84% Code(s): G47.33 - Obstructive sleep apnea (adult) (pediatric); Z99.89 - Dependence on other enabling machines and devices Category: Medical Plan: Compliant with CPAP (10) GERD (gastroesophageal reflux disease): Code(s): K21.9 - Gastro-esophageal reflux disease without esophagitis Category: Medical Plan: Currently on omeprazole 20 mg daily (11) Essential hypertension: Code(s): I10 - Essential (primary) hypertension Category: Medical Plan: Blood pressure at goal of less than 130/80. Continue losartan-HCTZ same dose. Reinforced importance of following a low sodium diet, getting regular exercise, and lowering stress levels. (12) Seasonal allergies: Code(s): J30.2 - Other seasonal allergic rhinitis Category: Medical Plan: Currently on loratadine 10 mg taken once a day as well as azelastine nasal spray (13) Advanced directives, counseling/discussion: Code(s): Z71.89 - Other specified counseling Plan: Initiated the conversation about Advanced Directives. Advanced Directives help patients prepare for current and future decisions about their medical treatment and place of care. Discussed with patient that it is a process where a patients current condition and prognosis are reviewed, their wishes for information regarding their illness are elicited, and likely medical dilemmas are presented and options discussed. Healthcare proxy form completed today. The form can be amended as needed, reviewed yearly and make changes as needed Orders: Referrals [facility] Referral Z12.4 - Encounter for screening for malignant neoplasm of cervix, Z80.41 - Family history of malignant neoplasm of ovary Medications: New Mounjaro (tirzepatide) for 4 weeks 2.5 mg (0.5 mL) subcut QWEEK 2 mL 3RF NS E11.65 - Type 2 diabetes mellitus with hyperglycemia, E66.9 - Obesity, unspecified Changed From metformin ER 500 mg PO BID 3 months 180 tabs 2RF E11.9 - Type 2 diabetes mellitus without complications To metformin ER 500 mg PO ONCE E11.9 - Type 2 diabetes mellitus without complications Refilled fenofibrate 120 mg PO DAILY 90 tabs 3RF losartan-hydrochlorothiazide 100-12.5 mg 1 tab PO DAILY 90 tabs 4RF I10 - Essential (primary) hypertension, R05.8 - Other specified cough, T46.4X5A - Adverse effect of etvcusbsuzm-egehleztwr-maonwo inhibitors, initial encounter metoprolol succinate ER 100 mg PO DAILY 90 tabs 1RF R00.2 - Palpitations, I10 - Essential (primary) hypertension omeprazole 20 mg PO QAM 90 caps 1RF Discontinued empagliflozin Discontinued Reason: Doctor's Order 10 mg PO DAILY 30 tabs 5RF
== END 2025-01-18 11:28 | disposition home or self-care (01) ==
LOC: HO.HMCC 09:41
PROVIDERS: PCP Internal Medicine; Visit Provider Internal Medicine
DX: Z00.01 Encounter for general adult medical examination with abnormal findings (principal); E11.65 Type 2 diabetes mellitus with hyperglycemia; E66.01 Morbid (severe) obesity due to excess calories; Z68.41 Body mass index [BMI] 40.0-44.9, adult; Z80.41 Family history of malignant neoplasm of ovary; Z12.4 Encounter for screening for malignant neoplasm of cervix; D12.6 Benign neoplasm of colon, unspecified; E78.1 Pure hyperglyceridemia; G47.33 Obstructive sleep apnea (adult) (pediatric); Z99.89 Dependence on other enabling machines and devices; K21.9 Gastro-esophageal reflux disease without esophagitis; I10 Essential (primary) hypertension

== ENCOUNTER → 2025-01-18 09:40 | Outpatient (BNVA) | payer BC, SELFPAY | PROVIDERS: PCP Internal Medicine; Visit Provider Internal Medicine | DX: Z00.01 Encounter for general adult medical examination with abnormal findings (principal); E11.65 Type 2 diabetes mellitus with hyperglycemia; E66.01 Morbid (severe) obesity due to excess calories; Z68.41 Body mass index [BMI] 40.0-44.9, adult; E78.1 Pure hyperglyceridemia; G47.33 Obstructive sleep apnea (adult) (pediatric); K21.9 Gastro-esophageal reflux disease without esophagitis; I10 Essential (primary) hypertension; J30.2 Other seasonal allergic rhinitis; Z71.89 Other specified counseling; Z86.0101 Personal history of adenomatous and serrated colon polyps; Z79.84 Long term (current) use of oral hypoglycemic drugs; Z79.899 Other long term (current) drug therapy; Z99.89 Dependence on other enabling machines and devices; Z80.41 Family history of malignant neoplasm of ovary | CPT/HCPCS: 96127 ==

== ENCOUNTER 2025-05-10 10:58 | Outpatient (REF) | payer BC, SELFPAY ==
[2025-05-10 13:52] LABS: Hemoglobin A1C 138.5335 umol/L; Total Hemoglobin (HGBA1C) 3126.0671 umol/L
[2025-05-10 14:14] LABS: Alanine Aminotransferase 31 U/L (0-31); Anion Gap 11 (12-20); Aspartate Amino Transferase 38 U/L (5-31); Blood Urea Nitrogen 18 mg/dL (9-16); Calcium 9.5 mg/dL (8.4-10.2); Carbon Dioxide 26 mmol/L (22-29); Chloride 105 mmol/L (96-108); Cholesterol 163 mg/dL (<200); Estimated Glomerular Filt Rate > 60; HDL Cholesterol 26 mg/dL (>40); Potassium 4.4 mmol/L (3.3-5.1); Sodium 138 mmol/L (135-145); Triglycerides 389 mg/dL (<150)
== END 2025-05-10 10:59 | disposition home or self-care (01) ==
LOC: HO.HMGCLDS 10:58
PROVIDERS: PCP Internal Medicine; Visit Provider Internal Medicine
DX: E11.65 Type 2 diabetes mellitus with hyperglycemia (principal); E78.1 Pure hyperglyceridemia; E66.9 Obesity, unspecified; I10 Essential (primary) hypertension; Z13.21 Encounter for screening for nutritional disorder
CPT/HCPCS: 36415; 80048; 80061; 82306; 83036; 84450; 84460

== ENCOUNTER 2025-05-12 15:18 | Outpatient (AMB) | payer BC, SELFPAY ==
--- NOTE | 2025-05-12 15:35 | MHC.PC.OV ---
Vital Signs 05/12/25 15:36 Height 5 ft 2 in Weight 232 lb BMI 42.4 BP 110/70 Blood Pressure Location Lt brachial Position Sitting Respiration 16 Pulse 80 Pulse Source Pulse Oximeter Temp 98.4 F Temp Source Oral Pulse Oximetry (%) 96 Oxygen Delivery Method Room Air Intake Visit Reasons: 3 months f/up Intake Note: Pt is here today for her 3mo. f/u Allergies No Known Allergies Allergy (Mild, Verified 05/12/25 15:57) NONE Medication List - Last Reconciled 05/12/25 by Olesya Fairbanks MD acetaminophen (Tylenol Extra Strength) 500 mg PO Q6H PRN ashwagandha root extract mg PO azelastine (Astepro Allergy) 1 spray intranasal BEDTIME cholecalciferol (vitamin D3) 5,000 mcg PO DAILY cyclosporine 0.05% (Restasis) 1 drp ophthalmic (eye) DAILY fenofibrate 120 mg PO DAILY gabapentin 1-3 caps orally bedtime; marquez root-marquez root ext 262.5 mg caps PO loratadine 10 mg PO DAILY PRN losartan-hydrochlorothiazide 100-12.5 mg 1 tab PO DAILY magnesium 500 mg PO DAILY meloxicam 15 mg PO DAILY PRN metformin ER 500 mg PO ONCE metoprolol succinate ER 100 mg PO DAILY Mounjaro (tirzepatide) 5 mg (0.5 mL) subcut QWEEK NS omeprazole 20 mg PO QAM tizanidine 2 mg PO TID PRN Tobacco use date assessed: 05/12/25 Dental Screening Dental Screen Date: 05/12/25 Did you have a dental visit in the last 12 months?: Yes Did you have a dental problem in the last 6 months where you did not have access to dental care?: Yes Was dental information given to patient?: Patient has dentist HPI 3 months f/up HPI Details - 65-year-old female with a history of diabetes mellitus , hypertriglyceridemia and hypertension, here today for her follow-up - Hypertriglyceridemia: The patient reports a significant increase in triglyceride levels, rising from 185 mg/dL to 389 mg/dL, attributed to dietary changes involving increased consumption of fast food over the past month. - The patient is currently on fenofibrate 120 mg but has not been adhering to her diet, and does not engage in any regular exercise - Diabetes Mellitus Type 2: The patient's diabetes is currently controlled with an A1c of 6.2%, down from 6.7% in December, attributed to the use of Mounjaro , in addition to metformin ER 500 mg once a day. - Osteoarthritis: The patient experiences pain in her hands, diagnosed as osteoarthritis by an operations specialists, and has been prescribed meloxicam for management, requests a refill on her prescription. She was advised to take meloxicam as needed due to potential GI side effects - Preventative Care: The patient has been advised to follow a Mediterranean diet to manage her triglyceride levels and overall health. -hypertension well controlled on losartan HCTZ 100-12.5 mg taken 1 tablet daily and metoprolol succinate ER 100 mg daily [facility] Medical History (Updated 05/12/25 @ 18:18 by Olesya Fairbanks MD) Arthritis of carpometacarpal (CMC) joint of both thumbs Family history of malignant neoplasm of ovary in first degree relative Obesity (BMI 30-39.9) Diabetes mellitus with hyperglycemia, without long-term current use of insulin Muscle cramps Type 2 diabetes mellitus without complication, without long-term current use of insulin Seasonal allergies Chronic low back pain Adenomatous polyp of colon Cough due to KAYLAH inhibitor Trigger thumb of right hand Varicose veins of right lower extremity with pain Morbid obesity Patellofemoral arthritis Rotator cuff tear, right Left carpal tunnel syndrome Gallstone pancreatitis Hypertriglyceridemia DENYS on CPAP GERD (gastroesophageal reflux disease) Essential hypertension Surgical History History of carpal tunnel surgery History of arthroscopy of right shoulder H/O medial meniscus repair of right knee History of right hip replacement H/O colonoscopy History of cholecystectomy Family History Father Multiple sclerosis Alzheimer disease Diabetes Congestive heart failure Mother Breast cancer Ovarian cancer Hypertension Maternal Aunt Breast cancer Maternal Grandmother Breast cancer Daughter Mental health disorder History of fundoplication Social History Housing: House Alcohol intake: never Patient Tobacco Use Status: Never used Tobacco e-Cigarette/Vaping Use: Never Used Second Hand Smoke Exposure: No service: No Current occupational status: employed 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 Depression Screening Interpretation: Negative Depression Screening Done: Yes Source: Developed by Drs. Stevan Winston, Mari Wallis, Rusty Griffin and colleagues, with an educational erica from [employer]. Thrive Questionnaire Date Thrive assessed: 01/18/25 I am a: Patient What is your living situation today?: I have a steady place to live Within the past 12 months, did the food you bought not last and you didn't have the money to get more?: Never true Within the past 12 months, did you worry whether your food would run out before you got money to buy more?: Never true Do you have trouble paying for medicines?: No Do you have trouble getting transportation to medical appointments?: No Do you have trouble paying your heating and electricity bill?: No Do you have trouble taking care of your child, family member or friend?: No Do you have trouble with day-to-day activities such as bathing, preparing meals, shopping, managing finances, etc.?: No Are you currently unemployed and looking for a job?: No Are you interested in more education?: No Please select the resources that you would like help with: None Currently or been in a relationship where the following occur: No concerns reported THRIVE Score: 0 YADIEL-7 AMB Questionnaire YADIEL-7 Date YADIEL - 7 assessed: 01/18/25 Source: Developed by Drs. Stevan Winston, Mari Wallis, Rusty Griffin and colleagues, with an educational erica from [employer]. Review of Systems Const Reports no additional complaints Eyes Denies change in vision ENT Reports no additional complaints and Reports Normal hearing present Card Denies chest pain with activity, Denies irregular heart rhythm, Denies lightheadedness, Denies dyspnea and Denies dyspnea on exertion Resp Denies cough, Denies dyspnea and Denies dyspnea on exertion GI Denies abdominal pain, Denies bloating, Denies heartburn and Denies nausea Reports no additional complaints Musc Denies joint swelling and Denies muscle weakness Skin/Breast Denies rash Neuro Reports Normal hearing present and Denies Sensory deficit (Neuro) Endo Denies polyphagia, Denies polydipsia and Denies polyuria Félix/Lymph Denies easy bleeding and Denies easy bruising Aller/Immun Reports no additional complaints Physical exam (Primary Care) Vital Signs: Last Vital Signs Temp 98.4 F 05/12/25 15:36 Pulse 80 05/12/25 15:36 Resp 16 05/12/25 15:36 BP 110/70 05/12/25 15:36 Pulse Ox 96 05/12/25 15:36 Oxygen Delivery Method Room Air 05/12/25 15:36 BMI result Body Mass Index 42.4 BMI Assessment/Plan discussion: High BMI High, discussed plan: lifestyle Tobacco/Smoking Status: Tobacco use Status Tobacco use date assessed 05/12/25 05/12/25 15:46 Patient Tobacco Use Status Never used Tobacco 05/12/25 15:36 e-Cigarette/Vaping Use Never Used 05/12/25 15:36 Depression Screening Interpretation: Negative Thrive Assessment: Date of Thrive Assessment Date Thrive assessed 01/18/25 05/12/25 15:36 Currently or been in a relationship where the following occur: No concerns reported Const General: no acute distress, alert and awake Orientation/consciousness: patient oriented x3 HENMT Ears: external ears normal General nose exam: Normal external nose present Face and sinus: Yes face symmetric Mouth: Normal oral and palatal mucosa present, oropharynx normal and moist mucous membranes Eyes General: appearance normal, both eyes and all related structures Neck Neck: Yes full ROM, Yes no lymphadenopathy and Yes supple Thyroid: Thyroid normal Resp Auscultation: clear to auscultation bilaterally Cardio Palpation: normal PMI Rate: regular rate Rhythm: regular rhythm Heart sounds: S1 normal heart sound present and S2 normal heart sound present GI Inspection: Yes normal to inspection and Yes Abdominal panniculus present Auscultation: normal bowel sounds General: Yes no CVA tenderness Back/Spine/Pelvis Back: no CVA tenderness and No back tenderness Skin General skin exam: no rashes or lesions noted Neuro General: patient oriented x3, gait normal, tone normal, moves all extremities, Normal light touch and pain sensation and no focal motor deficits Cranial nerves: Yes Normal hearing present Sensory Exam: No Sensory deficit (Neuro) Extrem General: Yes full ROM and Yes no joint enlargement Results Reviewed Results Reviewed: Laboratory Tests 01/11/25 05/10/25 11:21 11:03 Estimat Average Glucose 131 Hemoglobin A1c % 6.2 H Microalb/Creat Ratio 8.8 Name: Winter Duron Age/Sex: 65/F : 1960 Unit#: [id number] Attend Dr: Olesya Fairbanks MD Re05/10/25 Status: DEP [facility] Disch: SPEC : [id number] GAEL: 05/10/25 STATUS: COMP REQ : [id number] RECD: 05/10/25-[address]: Olesya Fairbanks MD COMP: 05/10/25-1415 ENTERED: 05/10/25-[address]: ORDERED: Met Prof Fast, AST, ALT, Lipid Panel, Vitamin D 25-OH Test Result Flag Reference Sodium 138 135-145 mmol/L Potassium 4.4 3.3-5.1 mmol/L CL 105 96-108 mmol/L CO2 26 22-29 mmol/L Gap 11 L 12-20 BUN 18 H 9-16 mg/dL Creat 0.92 0.5-1.4 mg/dL eGFR > 60 Chronic Kidney Disease: Estimated GFR < 60 mL/min/1.73m2 Severe Kidney Disease: Estimated GFR < 15 mL/min/1.73m2 FBS 90 60-99 mg/dL CA 9.5 8.4-10.2 mg/dL AST (GOT) 38 H 5-31 U/L ALT (GPT) 31 0-31 U/L Triglyceride 389 H <150 mg/dL Desirable Triglyceride: less than 150 mg/dL Borderline High Triglyceride 150-199 mg/dL High Triglyceride: 200-499 mg/dL Very High Triglyceride: greater than or equal to 5OO mg/dL Cholesterol 163 <200 mg/dL Desirable Cholesterol: less than 200 mg/dL Borderline High Cholesterol: 200-239 mg/dL High Cholesterol: greater than 239 mg/dL LDL Calculated 60 <100 mg/dL Desirable LDL: less than 100 mg/dL Near Optimal/Above Optimal LDL: 110-129 mg/dL Borderline High LDL: 130-159 mg/dL High LDL: 160-189 mg/dL Very High LDL: greater than or equal to 190 mg/dL HDL 26 L >40 mg/dL Desirable HDL: greater than 40 mg/dL Note: This HDL assay may give artificially low results in patients with liver disease. Vitamin D 25-OH 82.9 >30 ng/mL Health Based Reference Values* < 20 ng/mL Deficient 20-30 ng/mL Insufficient > 30 ng/mL Sufficient Coding Level of Care Code Est Pt Level 4 (81250) Complex EM visit Add On G2211 Diagnoses Essential hypertension I10 Hypertriglyceridemia E78.1 Type 2 diabetes mellitus without complication, without long-term current use of insulin E11.9 Arthritis of carpometacarpal (CMC) joint of both thumbs M18.0 Assessment & Plan Assessment & Plan (1) Essential hypertension: Code(s): I10 - Essential (primary) hypertension Category: Medical Plan: Blood pressure at goal of less than 130/80. Continue with current medication. Reinforced importance of following a low sodium diet, getting regular exercise, and lowering stress levels. (2) Hypertriglyceridemia: Code(s): E78.1 - Pure hyperglyceridemia Category: Medical Plan: Reinforced importance of following a low-cholesterol diet, try Mediterranean diet. Taking with fenofibrate 120 mg daily. Encouraged to do at least 15 minutes of moderate intensity exercise on a regular basis will repeat another fasting lipid panel in August 2025, labs have been ordered (3) Type 2 diabetes mellitus without complication, without long-term current use of insulin: Code(s): E11.9 - Type 2 diabetes mellitus without complications Category: Medical Plan: Recent lab results reviewed with patient, with sugar and hemoglobin A1c stable and at goal. Continued on Mounjaro 5 mg injected subcutaneously once a week, and metformin ER 500 mg once a day. continue to check fasting blood sugar at home, maintain log and bring to next appointment for review. Reinforced diabetic diet and regular exercise with patient. Counseled regarding importance of yearly diabetes retinopathy screening. Patient advised to inspect feet daily, for any signs of injury, callus or infection. Compliance with diet and regular exercise again stressed. Blood pressure goal is less than 130/80, goal LDL is less than 100 and goal hemoglobin A1c is less than 7% follow-up appointment made in--3-months, after fasting labs done. (4) Arthritis of carpometacarpal (CMC) joint of both thumbs: Code(s): M18.0 - Bilateral primary osteoarthritis of first carpometacarpal joints Category: Medical Plan: Diagnosed by Dr. Dillard her orthopedic surgeon and started her on meloxicam 50 mg daily with noticeable improvement in her pain. Refill sent, advised to take it only as needed and take it always with food Orders: Orders Hemoglobin A1c 08/20/25 E11.9 - Type 2 diabetes mellitus without complications, E78.1 - Pure hyperglyceridemia, I10 - Essential (primary) hypertension Alanine Aminotransferase 08/20/25 E11.9 - Type 2 diabetes mellitus without complications, E78.1 - Pure hyperglyceridemia, I10 - Essential (primary) hypertension Aspartate Amino Transferase 08/20/25 E11.9 - Type 2 diabetes mellitus without complications, E78.1 - Pure hyperglyceridemia, I10 - Essential (primary) hypertension Basic Metabolic Panel Fasting 08/20/25 E11.9 - Type 2 diabetes mellitus without complications, E78.1 - Pure hyperglyceridemia, I10 - Essential (primary) hypertension Lipid Panel 08/20/25 E11.9 - Type 2 diabetes mellitus without complications, E78.1 - Pure hyperglyceridemia, I10 - Essential (primary) hypertension Medications: New meloxicam 15 mg PO DAILY PRN 30 tabs 2RF arthralgia finger
[2025-05-12 15:36] VITALS: BP 110/70; PULSE 80; RESP 16; TEMP 36.9; O2SAT 96; BMI 42.4
== END 2025-05-12 16:19 | disposition home or self-care (01) ==
LOC: HO.HMCC 15:19
PROVIDERS: PCP Internal Medicine; Visit Provider Internal Medicine
DX: I10 Essential (primary) hypertension (principal); E78.1 Pure hyperglyceridemia; E11.9 Type 2 diabetes mellitus without complications; M18.0 Bilateral primary osteoarthritis of first carpometacarpal joints

== ENCOUNTER 2025-06-01 09:46 | Outpatient (AMB) | payer BC, SELFPAY ==
--- NOTE | 2025-06-01 09:50 | A.OFFVIS_ITS ---
Vital Signs 06/01/25 09:51 Height 5 ft 2 in Weight 231 lb 6 oz BMI 42.3 BP 138/80 Blood Pressure Location Rt brachial Position Sitting Pulse 106 H Pulse Source Pulse Oximeter Pulse Oximetry (%) 98 Oxygen Delivery Method Room Air Intake Visit Reasons: 1 yr follow up for sleep Intake Note: Follow up DENYS on CPAP Claims Counsel Required: No Accompanied by: Self / Same As Patient Allergies No Known Allergies Allergy (Mild, Verified 06/01/25 09:50) NONE HPI Comments Details: 65 y/o female patient presents for follow up of sleep study. The home sleep study result was significant for moderate to severe degree of sleep apnea. The AHI was 22/hr and oxygen arnulfo was 84%. Pt is onCPAP at [id number]. The CPAP compliance and therapy response (03/09- 06/09) reviewed with the patient. The usage days 81% and the average usage hours 7 hours. she uses her old CPAP when she travels to her daughters house The AHI was 1.4/hr. Pt reports that she sleeps well with CPAP and daytime sleepiness has improved. she reports muscle cramps at rest . [facility]MERLY [facility] Medical History Arthritis of carpometacarpal (CMC) joint of both thumbs Family history of malignant neoplasm of ovary in first degree relative Obesity (BMI 30-39.9) Diabetes mellitus with hyperglycemia, without long-term current use of insulin Muscle cramps Type 2 diabetes mellitus without complication, without long-term current use of insulin Seasonal allergies Chronic low back pain Adenomatous polyp of colon Cough due to KAYLAH inhibitor Trigger thumb of right hand Varicose veins of right lower extremity with pain Morbid obesity Patellofemoral arthritis Rotator cuff tear, right Left carpal tunnel syndrome Gallstone pancreatitis Hypertriglyceridemia DENYS on CPAP GERD (gastroesophageal reflux disease) Essential hypertension Surgical History History of carpal tunnel surgery History of arthroscopy of right shoulder H/O medial meniscus repair of right knee History of right hip replacement H/O colonoscopy History of cholecystectomy Family History Father Multiple sclerosis Alzheimer disease Diabetes Congestive heart failure Mother Breast cancer Ovarian cancer Hypertension Maternal Aunt Breast cancer Maternal Grandmother Breast cancer Daughter Mental health disorder History of fundoplication Social History Housing: House Alcohol intake: never Patient Tobacco Use Status: Never used Tobacco e-Cigarette/Vaping Use: Never Used Second Hand Smoke Exposure: No service: No Current occupational status: employed 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 Cognitive needs: No Hearing needs: No Vision needs: Yes Review of Systems ENT Reports Normal hearing present Neuro Reports Normal hearing present Physical Exam Vital Signs: Last Vital Signs Pulse 106 H 06/01/25 09:51 BP 138/80 06/01/25 09:51 Pulse Ox 98 06/01/25 09:51 Oxygen Delivery Method Room Air 06/01/25 09:51 BMI result Body Mass Index 42.3 Const General: cooperative Nutritional Appearance: obese Orientation/consciousness: patient oriented x3 HEENT Throat: Yes other (mallampati grade 4) Neck Neck: Yes full ROM and Yes supple Resp Effort & Inspection: normal respiratory effort and able to speak in complete sentences Neuro General: patient oriented x3 and gait normal Cranial nerves: Yes Bilaterally intact EOM present, Yes Normal facial strength present, Yes Midline tongue present, Yes Normal hearing present, Yes Ability to bilaterally rotate head present and Yes Ability to bilaterally elevate shoulders present Cognition (Neuro): normal cognition Gait exam (Neuro): Normal gait present Assessment & Plan Assessment & Plan (1) DENYS on CPAP: Comment: Moderate to severe degree of sleep apnea. The AHI was 22/hr and oxygen arnulfo was 84% Code(s): G47.33 - Obstructive sleep apnea (adult) (pediatric); Z99.89 - Dependence on other enabling machines and devices Category: Medical (2) Muscle cramps: Code(s): R25.2 - Cramp and spasm Category: Medical Plan Continue to use CPAP at [id number]. Stressed compliance, uses nightly and more than 4 hours. Clean mask and tubing regularly. Gabapentin 100mg 1-3 caps qhs Coding Level of Care Code Est Pt Level 4 (91942) Diagnoses DENYS on CPAP G47.33; Z99.89 Muscle cramps R25.2
[2025-06-01 09:51] VITALS: BP 138/80; PULSE 106; O2SAT 98; BMI 42.3
== END 2025-06-01 10:13 | disposition home or self-care (01) ==
LOC: HO.HSMS 09:47
PROVIDERS: PCP Internal Medicine; Visit Provider Psychiatry & Neurology Neurology
DX: G47.33 Obstructive sleep apnea (adult) (pediatric) (principal); Z99.89 Dependence on other enabling machines and devices; R25.2 Cramp and spasm
CPT/HCPCS: 99214

== ENCOUNTER 2025-08-09 10:15 | Outpatient (AMB) | payer BC, SELFPAY ==
--- NOTE | 2025-08-09 10:19 | AM.OFFWIN_ITS ---
Intake Vital Signs 08/09/25 10:22 Height 5 ft 2 in Weight 230 lb BMI 42.1 BP 124/72 Blood Pressure Location Lt brachial Position Sitting Pulse 112 H Pulse Source Pulse Oximeter Temp 98.7 F Temp Source Oral Pulse Oximetry (%) 96 Oxygen Delivery Method Room Air Intake Visit Reasons: EP-stomach issues Intake Note: Patient presents c/o stomach pain since yesterday. Patient states /friday she was having orange/yellow colored BMs that lasted all day. Patient Tobacco Use Status: Never used Tobacco Allergies No Known Allergies Allergy (Mild, Verified 08/09/25 10:26) NONE HPI HPI Comments History of Present Illness Details History of Present Illness - The patient is a 65-year-old individua l presenting with abdominal pain and gastrointestinal symptoms. - The patient experienced loose, mustard -yellow stools starting and Friday, following a period of constipation earlier in the week. - The patient reported nausea and abdomi nal pain after consuming an apple, canned ravioli, and macaroni and cheese, leading to frequent bathroom visits without vomiting initially. - Vomiting occurred at 6 AM, with the pa tient expelling macaroni and cheese, followed by persistent nausea and abdominal soreness. - The patient has a history of pancreati tis due to a gallstone blockage, leading to a cholecystectomy. - The patient denies any recent travel, dietary changes, or medication alterations, and has no fever or cold symptoms. - The patient has a history of gastroeso phageal reflux disease but denies any burning sensation, only pressure. - She has no blood in the stools. - She denies chest pain, SOB, fever, chi lls, dysuria, hematuria, hematemesis, hematochezia, weakness, or dizziness. - She has no cold symptoms. - Has not had a change in her medication s or diet. Physical Exam General: Cooperative, healthy appearing, comfortable, no acute distress and well developed Orientation: Patient oriented x3 Limitations: No limitations Eyes: Appearance normal, both eyes and all related structures Neck: Normal visual inspection and Yes full ROM. No lymphadenopathy noted. Respiratory: Normal respiratory effort and able to speak in complete sentences. Clear to auscultation bilaterally Cardiovascular: Regular rate and rhythm. Normal S1 and S2 GI: Hypoactive BS noted. Soft, obese. TTP of the epigastric region and mid abdomen. No TTP of the lower quadrants. No guarding or rebound tenderness noted. Negative Rovsing noted. Negative Mckay's noted. Negative CVA tenderness. Skin: No rashes or lesions noted Patient was informed and verbally consented to the use of an ambient scribe for clinic note documentation during this visit [facility] Medical History Arthritis of carpometacarpal (CMC) joint of both thumbs Family history of malignant neoplasm of ovary in first degree relative Obesity (BMI 30-39.9) Diabetes mellitus with hyperglycemia, without long-term current use of insulin Muscle cramps Type 2 diabetes mellitus without complication, without long-term current use of insulin Seasonal allergies Chronic low back pain Adenomatous polyp of colon Cough due to KAYLAH inhibitor Trigger thumb of right hand Varicose veins of right lower extremity with pain Morbid obesity Patellofemoral arthritis Rotator cuff tear, right Left carpal tunnel syndrome Gallstone pancreatitis Hypertriglyceridemia DENYS on CPAP GERD (gastroesophageal reflux disease) Essential hypertension Surgical History History of carpal tunnel surgery History of arthroscopy of right shoulder H/O medial meniscus repair of right knee History of right hip replacement H/O colonoscopy History of cholecystectomy Family History Father Multiple sclerosis Alzheimer disease Diabetes Congestive heart failure Mother Breast cancer Ovarian cancer Hypertension Maternal Aunt Breast cancer Maternal Grandmother Breast cancer Daughter Mental health disorder History of fundoplication Social History Housing: House Alcohol intake: never Patient Tobacco Use Status: Never used Tobacco e-Cigarette/Vaping Use: Never Used Second Hand Smoke Exposure: No service: No Current occupational status: employed 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 Cognitive needs: No Hearing needs: No Vision needs: Yes Review of Systems Const All systems reviewed & are unremarkable except as noted in HPI and below Physical Exam Vital Signs: Last Vital Signs Temp 98.7 F 08/09/25 10:22 Pulse 112 H 08/09/25 10:22 BP 124/72 08/09/25 10:22 Pulse Ox 96 08/09/25 10:22 Oxygen Delivery Method Room Air 08/09/25 10:22 BMI result Body Mass Index 42.1 Assessment & Plan Assessment & Plan (1) Nausea vomiting and diarrhea: Code(s): R11.2 - Nausea with vomiting, unspecified; R19.7 - Diarrhea, unspecified (2) Abdominal pain: Code(s): R10.9 - Unspecified abdominal pain Qualifiers: Abdominal location: generalized Qualified Code(s): R10.84 - Generalized abdominal pain Plan Most likely gastroenteritis vs biliary colic vs gastritis vs PUD vs h pylori vs pancreatitis plan - A stool panel was ordered to identify any infectious causes. - The patient was advised to follow a BRAT diet and stay hydrated with fluids like marquez sharona and Gatorade. - The patient was advised to avoid spicy foods - An H. pylori test was ordered to rule out infection. - will order a resp panel as well. - A basic metabolic panel was ordered to assess the patient's condition. - The patient was advised to seek emergency care if the pain persists or wors ens. Orders: Orders H pylori Ag Stool Today R19.7 - Diarrhea, unspecified GI Panel Today R19.7 - Diarrhea, unspecified SARS-CoV2/FLU/RSV Today R09.89 - Other specified symptoms and signs involving the circulatory and respiratory systems Comprehensive Met. Panel Today R19.7 - Diarrhea, unspecified Complete Blood Count Auto Diff Today R19.7 - Diarrhea, unspecified Coding Level of Care Code Est Pt Level 4 (13957) Diagnoses Nausea vomiting and diarrhea R11.2; R19.7 Generalized abdominal pain R10.84 Abdominal location: generalized
[2025-08-09 10:22] VITALS: BP 124/72; PULSE 112; TEMP 37.1; O2SAT 96; BMI 42.1
--- OUTSIDE RECORDS SUMMARY | 2025-08-09 12:30 | XMS_ITS | Data Portability ---
Author Organization [facility], [facility] Address [address] [place] [address] Care Team Providers Care Admissions Clinician Name Role Phone MELODY LAW Primary Care Provider Assessment No assessment recorded. Plan of Treatment Reminders Order Date Submit Date Provider Last Modified By Organization Details Last Modified Time Details Appointments None recorded. Lab None recorded. Referral None recorded. Procedures None recorded. Surgeries None recorded. 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 Patient InstructionsNo instructions recorded. Reason for Referral None Reported. Results Created Date Observation Date Name Description Value Unit Range Abnormal Flag Note LastModifiedBy Organization Detail LastModifiedTime 07/12/20 24 07/12/2024 XR, wrist , 2 view http:/ [email or web address] ?Encry pted=s hAaTro YD8dLq bEUv6g %2BXZw aYqtaq 0bqfl% 2Fg9IQ a4ajBk vP9nXo QUaueC m3YtLR FvZlgJ JJ8mAn HZtai3 7t7877 AC0Kqa H%2BGW aOlKiQ trMwF INTERFACE [facility] [address] [facility] [address], [place], [address], 07/12/2024 15:36:39 07/12/2007/12/2024 XR, wrist , 2 view http:/ [email or web address] ?Encry pted=s hAaTro YD8dLq bEUv6g %2BXZw aYqtaq 0bqfl% 2Fg9IQ a4ajBk vP9nXo QUaueC m3YtLR FvZl JJ8mAn HZtai3 6q0996 AC0Kqa H%2BGW aOlKiQ trMwF INTERFACE [facility] [address] [facility] [address], [place], [address], 07/12/2024 15:36:42 07/12/2007/12/2024 XR, wrist , 3 or more view http:/ [email or web address] ?Encry pted=s hAaTro YD8dLq bEUv6g %2BXZw aYqtaq 0bqfl% 2Fg9IQ a4ajBk vP9nXo QUaueC m3YtLR FvZlgJ JJ8mAn HZtai3 3k9172 AC0Kqa H%2BGW aOiKiQ trMwF INTERFACE [facility] [address], [place], [address], 07/12/2024 15:40:03 07/12/20 24 07/12/2024 XR, wrist , 3 or more view http:/ [email or web address] ?Encry pted=s hAaTro YD8dLq bEUv6g %2BXZw aYqtaq 0bqfl% 2Fg9IQ a4ajBk vP9nXo QUaueC m3YtLR FvZlgJ JJ8mAn HZtai3 6q6600 AC0Kqa H%2BGW aOiKiQ trMwF INTERFACE [facility] [address] [facility] [address], [place], [address], 07/12/2024 15:40:05 Result Notes Documentation Provider Name and Address Organization Details Recorded Time Xr, Wrist, 2 View : [email or web address]? Encrypted=wyRiUmqXJ6hJljF Uv6g%8SICawKhgsu6hcfa%2Fg 5UIr5doBcpB6wKwLIzkeMp8Fe DNFzLybBAR3lRdNOzxw52u292 9DO9EglK%2BGWaOlKiQtrMwF Not Available [facility] 07/12/2024 15:3 6:40 Xr, Wrist, 2 View : [email or web address]? Encrypted=xwTxCkxDC0oBgvN Uv6g%1MYAhcWyjxk1hyxb%2Fg 1MWx5raFfjT0gPkUCxvgQk6Eq FZXwZqeBRO9iUpHOuef46z219 4HI3RiyV%2BGWaOlKiQtrMwF Not Available [facility] 07/12/2024 15:3 6:42 Xr, Wrist, 3 Or More View : [email or web address]? Encrypted=nsXnDxoVD0vBapE Uv6g%4ZXSasFpiqh5uxzn%2Fg 7FMv0nyOrlJ4xAoZErucCo6Jh IXNbQpqRLX2yDnQDlii84z479 7CL3GyfO%2BGWaOiKiQtrMwF Not Available [facility] 07/12/2024 15:4 0:04 Xr, Wrist, 3 Or More View : [email or web address]? Encrypted=pkOyOofZO2yEauX Uv6g%7PSAzqBigut2zoix%2Fg 1NFg3lpSmsJ9dPqJNnnmOb9Vh VWWxLbbTBI5pSzMAktb54c832 8LD4FkpC%2BGWaOiKiQtrMwF Not Available [facility] 07/12/2024 15:4 0:06 Problems Name Problem SNOMED Code Status Onset Date Resolution Date Notes Provider Name and Address Organization Details Recorded Time No complaints 215508561 Active Status : 'I'; Not Available [facility] 09:10:57 Problem Notes None recorded. Medical Equipment None Reported. Allergies No known drug allergies Medications Name Sig Start Date Stop Date Status Note LastModified by Organization Details LastModified Time amoxicillin 500 mg capsule TAKE 4 CAPSULES BY MOUTH THE MORNING OF THE PROCEDURE active Not Available Not Available No t Available meloxicam 15 mg tablet TAKE ONE TABLET BY MOUTH EVERY DAY active Not Available Not Available No t Available prednisone 20 mg tablet TAKE TWO TABLETS BY MOUTH EVERY DAY FOR 5 DAYS active Not Available Not Available No t Available metoprolol succinate ER 100 mg tablet,exten ded release 24 hr TAKE 1 TABLET BY MOUTH EVERY DAY active Not Available Not Available No t Available triamcinolon e acetonide 0.025 % topical cream APPLY TOPICALLY 2 TIMES A DAY FOR 14 DAYS active Not Available Not Available Not Available pseudoephedr ine-guaifene sin ER 80-700 mg tablet,exten ded release 1 PO Q 4 HOURS PRN PAIN(GIVEN AT [facility] AT TIME OF SURGERY 08/30/16) 2015 active Statu s: 'Curr ent'; Not Available Not Available Not Available prednisone 50 mg tablet TAKE 1 TABLET BY MOUTH EVERY DAY FOR 5 DAYS active Not Available Not Available No t Available omeprazole 20 mg capsule,sebastian yed release TAKE ONE CAPSULE BY MOUTH EVERY MORNING active Not Available Not Available No t Available gabapentin 100 mg capsule TAKE 1-3 CAPSULES BY MOUTH AT BEDTIME active Not Available Not Available No t Available clobetasol 0.05 % topical ointment APPLY TO AFFECTED AREA S) TOPICALLY TWO TIMES A DAY FOR ONE WEEK active Not Available Not Available No t Available lorazepam 1 mg tablet TAKE 1 TABLET BY MOUTH ONE HOUR PRIOR TO MRI, MAY TAKE ONE TABLETS BY MOUTH 30 MINUTES BEFORE MRI IF NEEDED active Not Available Not Available No t Available methylpredni solone 4 mg tablets in a dose pack TAKE DIRECTED PER PACKAGE INSTRUCTION S active Not Available Not Available No t Available hydroxyzine HCl 10 mg tablet TAKE ONE TABLET BY MOUTH EVERY DAY NIGHTLY NEEDED FOR ITCHING active Not Available Not Available Not Available metformin ER 500 mg tablet,exten ded release 24 hr TAKE ONE TABLET BY MOUTH TWICE A DAY active Not Available Not Available No t Available amoxicillin 875 mg-potassium clavulanate 125 mg tablet TAKE ONE TABLET BY MOUTH TWICE A DAY FOR 7 DAYS active Not Available Not Available No t Available Restasis 0.05 % eye drops in a dropperette INSTILL DROP INTO EACH EYE TWICE A DAY active Not Available Not Available Not Available Allergy Relief (loratadine) 10 mg tablet TAKE ONE TABLET BY MOUTH EVERY DAY FOR ALLERGIES active Not Available Not Available No t Available tizanidine 2 mg capsule TAKE ONE CAPSULE BY MOUTH THREE TIMES A DAY NEEDED FOR MUSCLE SPASM AVOID OPERATING HEAVY MACHINERY AFTER USE active Not Available Not Available No t Available losartan 100 mg-hydrochlo rothiazide 12.5 mg tablet TAKE ONE TABLET BY MOUTH EVERY DAY active Not Available Not Available No t Available loratadine active Not Available Not Av ailable Not Available omeprazole active Not Available Not Av ailable Not Available losartan active Not Available Not Avai lable Not Available metoprolol succinate active Not Available Not Available No t Available Vitamin D3 active Not Available Not Av ailable Not Available fenofibrate active Not Available Not A vailable Not Available hydrochlorot hiazide 12.5 mg tablet TAKE ONE TABLET BY MOUTH EVERY MORNING active Not Available Not Available No t Available fenofibrate 120 mg tablet TAKE ONE TABLET BY MOUTH EVERY DAY active Not Available Not Available No t Available oxycodone HCl-oxycodon e-ASA as directed 1-2 Tabs po Q 4-6 hrs prn pain. DO NOT DRIVE WHILE TAKING THIS MEDICATION 2018 active Statu s: 'Curr ent'; Not Available Not Available Not Available sodium,potas sium,mag sulfates 17.5 gram-3.13 gram-1.6 gram oral soln SEE INSTRUCTION S active Not Available Not Available No t Available Jardiance 10 mg tablet TAKE ONE TABLET BY MOUTH EVERY DAY active Not Available Not Available No t Available Paxlovid 300 mg (150 mg x 2)-100 mg tablets in a dose pack TAKE THREE TABLETS BY MOUTH TWICE A DAY FOR 5 DAYS active Not Available Not Available No t Available Mounjaro 5 mg/0.5 mL subcutaneous pen injector INJECT 0.5 ML UNDER THE SKIN ONCE A WEEK active Not Available Not Available Not Available Mounjaro 2.5 mg/0.5 mL subcutaneous pen injector USE TO INJECT 2.5 MG SUBCUTANEOU SLY EVERY WEEK active Not Available Not Available No t Available Vitals Date Recorded Body height Body mass index (BMI) Body weight Provider Name and Address Organization Details Last Updated DateTime 03/02/2025 157.48 cm 43 kg/m2 476830.21 g [facility] 03/02/2025 13:16:26 Date Recorded Body height Body mass index (BMI) Body weight Provider Name and Address Organization Details Last Updated DateTime 07/12/2024 157.48 cm 43 kg/m2 884636.21 g [facility] 07/12/2024 15:26:24 Social History None recorded. Functional Status None recorded. Mental Status None recorded. Family History Nothing Reported. Medical History No medical history recorded. Gynecological HistoryNo gynecological history recorded. Obstetrics History GPAL:G 0 P 0 0 0 0 Past Encounters Encounter ID Performer Location Encounter Start Date Encounter Closed Date Diagnosis/Indication Diagnosis SNOMED-CT Code Diagnosis ICD10 Code Diagnosis IMO Codes Diagnosis Note [id number] [facility] [address] [place] [address] 07/12/2024 14:52:58 07/30/2024 10:40:20 Bilateral wrist pain 3643804809 3798386 M25.531 M25.532 12340027 Arthritis of first carpometacarpal joint of right hand 9732446487 652877 M18.11 05754372 Arthritis of first carpometacarpal joint of left hand 4608710791 183909 M18.12 18862516 Tear of tr iangular fibrocartilage complex of left wrist 1883804122 4740669 S63.592A [id number] MD FAHAD Townsend [address] [place] [address] 03/02/2025 12:55:26 2025 14:27:23 Primary arthrosis of first carpometacarpal joints, bilateral 986894181 M18.0 1033495 Arthritis of bilateral first carpometacarpal joints 2820146173 586348 M18.0 8532051336 Health Concerns Section Related Observation LastModified by Organization Detai ls LastModified Time None Recorded Concern Status LastModified by Organization Details LastModified Time None Recorded Advance Directives Directive None Recorded Payers Insurance Date Sequence Insurance Name Policy Number Policy Mayes Covered Member ID Mayes Member ID Guarantor Name 03/02/2025 1 ADAMS (PPO) [id number] Winter Duron [id number] [place] 2025 1 ADAMS (PPO) [id number] Winter Duron [id number] [place] Notes Date Note Type Note Provider Name and Address Organization Details Recorded Time 07/12/2024 text/html ROS as noted in the HPI Diagnosis: 1. Bilateral first CMC arthritis2. TFCC tear left afgkq20-wirp-rza female with complaints involving both wrists. She has pain at the base of both thumbs with activities. The pain is sharp and moderate in severity. She also has an ulnar-sided wrist pain with activity requiring grasp and rotation. She describes no numbness or tingling.Past family, medical, social history and review of systems has been reviewed, updated and is located in the patient s chart.Examination: Healthy appearing patient in no apparent distress. Alert and oriented. She has symmetric range of motion of her bilateral wrists and digits. Provocative testing the right wrist reveals a positive first CMC grind and compression test. Provocative testing left wrist reveals a positive first CMC grind and compression test and a positive TFC grind test. Her DRUJ is stable. The patient is tender over her fovea on the left. No atrophy in either upper extremity. Brisk capillary refill in all digitsX-rays ordered, obtained, and reviewed today at [facility]: PA and lateral of her bilateral TM joints confirm joint space narrowing, sclerosis and osteophyte production. PA and lateral of both wrists as well as bilateral refuse demonstrate minimal ulnar positive variance.Plan: The patient and I discussed her situation at length. I have recommended a course of nonsteroidal anti-inflammatory medication. She is provided with a prescription for meloxicam. She will try this for 6 weeks. If she is not successful she will return discuss corticosteroid injection therapy. Lukas Dillard MD [address], [place], [address], [facility] 07/13/2024 15:28:22 03/02/2025 text/html ROS as noted in the HPI Diagnosis: Bilateral first CMC arthritis The patient returns at her request. She reports that her meloxicam which initially worked very well is working less well controlling her pain. Past family, medical, social history and review of systems has been reviewed, updated and is located in the patient s chart. Examination: Healthy appearing patient in no apparent distress. Alert and oriented. She has symmetric range of motion of her bilateral wrist and digits. Provocative testing of her wrist reveal positive first CMC grind and compression test. No atrophy in either upper extremity. Brisk capillary refill in all digits Plan: The patient and I discussed her situation at length. I recommended that she add Tylenol to her regimen. We discussed ways that she could do this. Certainly if oral medications are not adequately working we can discuss corticosteroid injection therapy. She is not ready to do that. She will follow-up at her discretion. I refilled her meloxicam prescription. Lukas Dillard MD [address], [place], [address], [facility] 03/02/2025 13:30:01 OBGyn Episode No OBEpisode recorded.
== END 2025-08-09 11:43 | disposition home or self-care (01) ==
PROVIDERS: PCP Internal Medicine; Visit Provider Physician Assistant Medical
DX: R11.2 Nausea with vomiting, unspecified (principal); R19.7 Diarrhea, unspecified; R10.84 Generalized abdominal pain

== ENCOUNTER 2025-08-09 10:15 | Outpatient (REF) | payer BC, SELFPAY ==
[2025-08-09 14:15] LABS: MANUAL DIFF FLAG NO
[2025-08-09 14:28] LABS: Resp Syncy Virus RNA Qual PCR NEGATIVE (Negative); SARS COV2 PCR INHOUSE NEGATIVE (Negative)
[2025-08-09 14:33] LABS: Hematocrit 40.5 % (37.0-47.0); Hemoglobin 13.2 g/dl (12.0-16.0); Imm Gran Abs Auto 0.06 X10*3/uL (0.00-0.03); Imm Gran Pct Auto 0.6 % (0.0-0.4); Lymphocytes Absolute Auto 2.4 X10*3/uL (1.2-4.9); Mean Corpuscular HGB Conc 32.6 g/dl (31.0-35.0); Mean Corpuscular Hemoglobin 28.0 pg (27.0-33.0); Mean Corpuscular Volume 85.8 fL (80.0-98.0); NRBC Abs Auto 0.000 X10*3/uL (0.0-0.012); NRBC Pct Auto 0.0 /100WBC (0.0-0.2); Platelet Count 470 X10*3/uL (160-400); Red Blood Count 4.72 X10*6/uL (4.20-5.50); White Blood Count 10.9 X10*3/uL (4.8-10.8)
[2025-08-09 14:50] LABS: Alanine Aminotransferase 35 U/L (0-31); Albumin Level 4.7 g/dL (3.5-5.0); Alkaline Phosphatase 83 U/L (39-117); Anion Gap 12 (12-20); Aspartate Amino Transferase 32 U/L (5-31); Blood Urea Nitrogen 17 mg/dL (9-16); Calcium 10.3 mg/dL (8.4-10.2); Carbon Dioxide 31 mmol/L (22-29); Chloride 102 mmol/L (96-108); Estimated Glomerular Filt Rate 59; Potassium 4.1 mmol/L (3.3-5.1); Sodium 141 mmol/L (135-145); Total Protein 8.2 g/dL (6.5-8.0)
[2025-08-09 15:06] LABS: E. coli EAEC Not Detected (Not Detect.); E. coli EPEC Not Detected (Not Detect.); E. coli ETEC Not Detected (Not Detect.); E. coli STEC Not Detected (Not Detect.); Shigella sp./EIEC Not Detected (Not Detect.)
== END 2025-08-09 10:16 | disposition home or self-care (01) ==
LOC: HO.HMGCLDS 10:15
PROVIDERS: PCP Internal Medicine; Visit Provider Physician Assistant Medical
DX: R10.84 Generalized abdominal pain (principal); R19.7 Diarrhea, unspecified; R11.2 Nausea with vomiting, unspecified; R09.89 Other specified symptoms and signs involving the circulatory and respiratory systems; Z03.818 Encounter for observation for suspected exposure to other biological agents ruled out
CPT/HCPCS: 36415; 80053; 85025; 87338; 87507; 87637

== ENCOUNTER 2025-08-24 11:23 | Outpatient (REF) | payer BC, SELFPAY ==
[2025-08-24 14:49] LABS: Alanine Aminotransferase 21 U/L (0-31); Anion Gap 13 (12-20); Aspartate Amino Transferase 26 U/L (5-31); Blood Urea Nitrogen 24 mg/dL (9-16); Calcium 9.3 mg/dL (8.4-10.2); Carbon Dioxide 26 mmol/L (22-29); Chloride 108 mmol/L (96-108); Cholesterol 126 mg/dL (<200); Estimated Glomerular Filt Rate 50; HDL Cholesterol 28 mg/dL (>40); Potassium 4.6 mmol/L (3.3-5.1); Sodium 142 mmol/L (135-145); Triglycerides 220 mg/dL (<150)
== END 2025-08-24 11:24 | disposition home or self-care (01) ==
LOC: HO.HMGCLDS 11:23
PROVIDERS: PCP Internal Medicine; Visit Provider Internal Medicine
DX: I10 Essential (primary) hypertension (principal); E78.1 Pure hyperglyceridemia; E11.9 Type 2 diabetes mellitus without complications
CPT/HCPCS: 36415; 80048; 80061; 83036; 84450; 84460

== ENCOUNTER 2025-08-31 07:54 | Outpatient (AMB) | payer BC, SELFPAY ==
--- OUTSIDE RECORDS SUMMARY | 2025-08-31 07:57 | XMS_ITS | Data Portability ---
Author Organization [facility], [facility] Address [address] [place] [address] Care Team Providers Care Food Preservation Scientist Name Role Phone MELODY LAW Primary Care Provider [phone] Assessment No assessment recorded. Plan of Treatment Reminders Order Date Submit Date Provider Last Modified By Organization Details Last Modified Time Details Appointments None recorded. Lab None recorded. Referral None recorded. Procedures None recorded. Surgeries None recorded. 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 Patient InstructionsNo instructions recorded. Reason for Referral None Reported. Results Created Date Observation Date Name Description Value Unit Range Abnormal Flag Note LastModifiedBy Organization Detail LastModifiedTime 07/12/20 24 07/12/2024 XR, wrist , 2 view http:/ [email or web address] ?Encry pted=s hAaTro YD8dLq bEUv6g %2BXZw aYqtaq 0bqfl% 2Fg9IQ a4ajBk vP9nXo QUaueC m3YtLR FvZlgJ JJ8mAn HZtai3 0v7597 AC0Kqa H%2BGW aOlKiQ trMwF INTERFACE [facility] [address] [facility] [address], [place], [address], 07/12/2024 15:36:39 07/12/2007/12/2024 XR, wrist , 2 view http:/ /[email or web address] ?Encry pted=s hAaTro YD8dLq bEUv6g %2BXZw aYqtaq 0bqfl% 2Fg9IQ a4ajBk vP9nXo QUaueC m3YtLR FvZl JJ8mAn HZtai3 6i0913 AC0Kqa H%2BGW aOlKiQ trMwF INTERFACE [facility] [address] [facility] [address], [place], [address], 07/12/2024 15:36:42 07/12/2007/12/2024 XR, wrist , 3 or more view http:/ /[email or web address] ?Encry pted=s hAaTro YD8dLq bEUv6g %2BXZw aYqtaq 0bqfl% 2Fg9IQ a4ajBk vP9nXo QUaueC m3YtLR FvZlgJ JJ8mAn HZtai3 3x8645 AC0Kqa H%2BGW aOiKiQ trMwF INTERFACE [facility] [address], [place], [address], 07/12/2024 15:40:03 07/12/20 24 07/12/2024 XR, wrist , 3 or more view http:/ [email or web address] ?Encry pted=s hAaTro YD8dLq bEUv6g %2BXZw aYqtaq 0bqfl% 2Fg9IQ a4ajBk vP9nXo QUaueC m3YtLR FvZlgJ JJ8mAn HZtai3 7b0149 AC0Kqa H%2BGW aOiKiQ trMwF INTERFACE [facility] [address] [facility] [address], [place], [address], 07/12/2024 15:40:05 Result Notes Documentation Provider Name and Address Organization Details Recorded Time Xr, Wrist, 2 View : [email or web address]? Encrypted=spKrZaqMH3bBggD Uv6g%9LSQbtSdscx1qqea%2Fg 0EIw3vjBfiJ4sYkPEpynKf0Ig PSQjBieVTQ7oFaGFody06v888 1CU2DvtT%2BGWaOlKiQtrMwF Not Available [facility] 07/12/2024 15:3 6:40 Xr, Wrist, 2 View : [email or web address]? Encrypted=djFaFpnUH8bDkqV Uv6g%2BCEslBwsnu0ycjb%2Fg 2PBn6rjFjwV7yQkBZrvmMs8Ln GNDcJboRHT7sPlCAztb94g485 1ED8KodN%2BGWaOlKiQtrMwF Not Available [facility] 07/12/2024 15:3 6:42 Xr, Wrist, 3 Or More View : [email or web address]? Encrypted=flAlVdjQB5nLkbK Uv6g%9WTRjxOjfan9jucg%2Fg 0LUw5nuLwlM6bKaDJfvvZk2Lx IUNnIncBQU6xKaGAcmp12s502 3NL9NzmI%2BGWaOiKiQtrMwF Not Available [facility] 07/12/2024 15:4 0:04 Xr, Wrist, 3 Or More View : [email or web address] Encrypted=zdExXnuZQ1cZjaQ Uv6g%9TMHeoGpusq0ihjk%2Fg 9INt0apBsxT6vIuOWszeRp3Nz KAGsNdsKQE1oJwGBngu27h162 2OD1GtfW%2BGWaOiKiQtrMwF Not Available [facility] 07/12/2024 15:4 0:06 Problems Name Problem SNOMED Code Status Onset Date Resolution Date Notes Provider Name and Address Organization Details Recorded Time No complaints 851673495 Active Status : 'I'; Not Available [facility] 09:10:57 Problem Notes None recorded. Medical Equipment [...] PO Q 4 HOURS PRN PAIN(GIVEN AT [facility] AT TIME OF SURGERY 08/30/16) 2015 active [...] Updated DateTime 03/02/2025 157.48 cm 43 kg/m2 636565.21 g [facility] 03/02/2025 13:16:26 Date Recorded Body height Body mass index (BMI) Body weight Provider Name and Address Organization Details Last Updated DateTime 07/12/2024 157.48 cm 43 kg/m2 490918.21 g [facility] 07/12/2024 15:26:24 Social History None recorded. Functional Status None recorded. Mental Status None recorded. Family History Nothing Reported. Medical History No medical history recorded. Gynecological HistoryNo gynecological history recorded. Obstetrics History GPAL:G 0 P 0 0 0 0 Past Encounters Encounter ID Performer Location Encounter Start Date Encounter Closed Date Diagnosis/Indication Diagnosis SNOMED-CT Code Diagnosis ICD10 Code Diagnosis IMO Codes Diagnosis Note [id number] [facility] [address] [place] [address] 07/12/2024 14:52:58 07/30/2024 10:40:20 Bilateral wrist pain 9055149640 7889961 M25.531 M25.532 14619099 Arthritis of first carpometacarpal joint of right hand 3478091252 193949 M18.11 12891615 Arthritis of first carpometacarpal joint of left hand 1107079029 766156 M18.12 65464494 Tear of tr iangular fibrocartilage complex of left wrist 0241229124 6071746 S63.592A [id number] MD FAHAD Townsend [address] [place] [address] 03/02/2025 12:55:26 2025 14:27:23 Primary arthrosis of first carpometacarpal joints, bilateral 183676474 M18.0 0467086 Arthritis of bilateral first carpometacarpal joints 7659031065 008363 M18.0 2366272348 Health Concerns Section Related Observation LastModified by Organization Detai ls LastModified Time None Recorded Concern Status LastModified by Organization Details LastModified Time None Recorded Advance Directives Directive None Recorded Payers Insurance Date Sequence Insurance Name Policy Number Policy Mayes Covered Member ID Mayes Member ID Guarantor Name 03/02/2025 1 ADAMS (PPO) [id number] Winter Duron [id number] Winter [place] 2025 1 ADAMS (PPO) [id number] Winter Duron [id number] [place] Notes Date Note Type Note Provider Name and Address Organization Details Recorded Time 07/12/2024 text/html ROS as noted in the HPI Diagnosis: 1. Bilateral first CMC arthritis2. TFCC tear left evmvz43-gpry-jdi female with complaints involving both wrists. She [...] digitsX-rays ordered, obtained, and reviewed today at [facility]: PA and lateral of her [...] corticosteroid injection therapy. Lukas Dillard MD [address], [place], [address], [facility] 07/13/2024 15:28:22 03/02/2025 text/html ROS as [...] her meloxicam prescription. Lukas Dillard MD [address], [place], [address], [facility] 03/02/2025 13:30:01 OBGyn Episode No OBEpisode recorded.
[2025-08-31 08:04] VITALS: BP 100/60; PULSE 74; RESP 16; TEMP 36.6; O2SAT 98; BMI 41.3
--- NOTE | 2025-08-31 08:04 | A.OFFPC_ITS ---
Vital Signs 08/31/25 08:04 Height 5 ft 2 in Weight 226 lb BMI 41.3 BP 100/60 Blood Pressure Location Rt brachial Position Sitting Respiration 16 Pulse 74 Pulse Source Pulse Oximeter Temp 97.8 F Temp Source Oral Pulse Oximetry (%) 98 Oxygen Delivery Method Room Air Intake Visit Reasons: 3m follow up Intake Note: Pt is here today for her 3mo. f/u Compliance Analyst Required: No Allergies No Known Allergies Allergy (Mild, Verified 09/10/25 23:47) NONE Medication List - Last Reconciled 09/10/25 by Olesya Fairbanks MD Accu-Chek Anna Plus test strp (blood sugar diagnostic) Check fasting glucose once a day NS acetaminophen (Tylenol Extra Strength) 500 mg PO Q6H PRN azelastine (Astepro Allergy) 1 spray intranasal BEDTIME blood-glucose meter (Accu-Chek Guide Glucose Meter) Check fasting glucose once a day as directed cholecalciferol (vitamin D3) 5,000 mcg PO DAILY fenofibrate 120 mg PO DAILY gabapentin 1-3 caps orally bedtime; lancets (Accu-Chek Fastclix Lancet Drum) Check fasting glucose once a day as directed loratadine 10 mg PO DAILY PRN losartan-hydrochlorothiazide 100-12.5 mg 1 tab PO DAILY magnesium 500 mg PO DAILY meloxicam 15 mg PO DAILY PRN metformin ER 500 mg PO ONCE metoprolol succinate ER 100 mg PO DAILY Mounjaro (tirzepatide) 5 mg (0.5 mL) subcut QWEEK NS omeprazole 20 mg PO QAM tizanidine 2 mg PO TID PRN Tobacco use date assessed: 08/31/25 Dental Screening Dental Screen Date: 08/31/25 Did you have a dental visit in the last 12 months?: Yes Did you have a dental problem in the last 6 months where you did not have access to dental care?: No Was dental information given to patient?: Patient has dentist HPI 3m follow up HPI Details 65-year-old lady with past medical histo ry significant for type 2 diabetes mellitus, hypertension, and hypertriglyceridemia presents today for her follow-up visit. Has been compliant with taking medications, and tries to adhere to recommended diet. She however remains sedentary, with no regular exercise. Latest hemoglobin A1c is at 5.9%, but fasting lipids still showed elevated triglycerides with normal LDL cholesterol. Hypertension stable and controlled on present treatment with losartan-HCTZ 100-12.5 mg taken daily and metoprolol succinate ER 100 mg once a day. [facility] Medical History (Updated 09/11/25 @ 00:50 by Olesya Fairbanks MD) History of adenomatous polyp of colon Arthritis of carpometacarpal (CMC) joint of both thumbs Family history of malignant neoplasm of ovary in first degree relative Obesity (BMI 30-39.9) Muscle cramps Type 2 diabetes mellitus without complication, without long-term current use of insulin Seasonal allergies Chronic low back pain Cough due to KAYLAH inhibitor Trigger thumb of right hand Varicose veins of right lower extremity with pain Morbid obesity Patellofemoral arthritis Rotator cuff tear, right Left carpal tunnel syndrome Gallstone pancreatitis Hypertriglyceridemia DENYS on CPAP GERD (gastroesophageal reflux disease) Essential hypertension Surgical History History of carpal tunnel surgery History of arthroscopy of right shoulder H/O medial meniscus repair of right knee History of right hip replacement H/O colonoscopy History of cholecystectomy Family History Father Multiple sclerosis Alzheimer disease Diabetes Congestive heart failure Mother Breast cancer Ovarian cancer Hypertension Maternal Aunt Breast cancer Maternal Grandmother Breast cancer Daughter Mental health disorder History of fundoplication Social History Housing: House Alcohol intake: never Patient Tobacco Use Status: Never used Tobacco e-Cigarette/Vaping Use: Never Used Second Hand Smoke Exposure: No service: No Current occupational status: employed 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 1. Little interest or pleasure in doing things: not at all 2. Feeling down, depressed, or hopeless: not at all 3. Trouble falling or staying asleep, or sleeping too much: not at all 4. Feeling tired or having little energy: not at all 5. Poor appetite or overeating: not at all 6. Feeling bad about yourself - or that you are a failure or have let yourself or your family down: not at all 7. Trouble concentrating on things, such as reading the newspaper or watching television: not at all 8. Moving or speaking so slowly that other people could have noticed. Or the opposite - being so fidgety or restless that you have been moving around a lot more than usual: not at all 9. Thoughts that you would be better off or of hurting yourself in some way: not at all Total score: 0 Source: Developed by Drs. Stevan Winston, Mari Wallis, Rusty Griffin and colleagues, with an educational erica from [employer]. Thrive Questionnaire Date Thrive assessed: 01/18/25 What is your living situation today?: I have a steady place to live Within the past 12 months, did the food you bought not last and you didn't have the money to get more?: Never true Within the past 12 months, did you worry whether your food would run out before you got money to buy more?: Never true Do you have trouble paying for medicines?: No Do you have trouble getting transportation to medical appointments?: No Do you have trouble paying your heating and electricity bill?: No Do you have trouble taking care of your child, family member or friend?: No Do you have trouble with day-to-day activities such as bathing, preparing meals, shopping, managing finances, etc.?: No Are you currently unemployed and looking for a job?: No Are you interested in more education?: No Please select the resources that you would like help with: None Currently or been in a relationship where the following occur: No concerns reported THRIVE Score: 0 AUDIT C Alcohol Use Questionnaire (AUDIT-C) 1. How often do you have a drink containing alcohol?: Never Total Score: 0 YADIEL-7 AMB Questionnaire YADIEL-7 Date YADIEL - 7 assessed: 01/18/25 Feeling nervous, anxious, or on edge: 0 = Not at all Not being able to stop or control worryin = Not at all Worrying too much about different things: 0 = Not at all Trouble relaxin = Not at all Being so restless that it is hard to sit still: 0 = Not at all Becoming easily annoyed or irritable: 0 = Not at all Feeling afraid as if something awful might happen: 0 = Not at all Total YADIEL-7 score (0-4 normal; 5-9 mild; 10-14 moderate; 15-21 severe): 0 Source: Developed by Drs. Stevan Winston, Mari Wallis, Rusty Griffin and colleagues, with an educational erica from [employer]. Review of Systems Const Reports no additional complaints Eyes Denies change in vision ENT Reports no additional complaints and Reports Normal hearing present Card Denies chest pain with activity, Denies irregular heart rhythm, Denies lightheadedness, Denies dyspnea and Denies dyspnea on exertion Resp Denies cough, Denies dyspnea and Denies dyspnea on exertion GI Denies abdominal pain, Denies heartburn and Denies nausea Reports no additional complaints Musc Denies joint swelling and Denies muscle weakness Skin/Breast Denies rash Neuro Reports no additional complaints, Reports Normal hearing present and Denies Sensory deficit (Neuro) Psych Reports no additional complaints Endo Denies polyphagia, Denies polydipsia and Denies polyuria Félix/Lymph Denies easy bleeding and Denies easy bruising Aller/Immun Reports no additional complaints Physical exam (Primary Care) Vital Signs: Last Vital Signs Temp 97.8 F 08/31/25 08:04 Pulse 74 08/31/25 08:04 Resp 16 08/31/25 08:04 BP 100/60 08/31/25 08:04 Pulse Ox 98 08/31/25 08:04 Oxygen Delivery Method Room Air 08/31/25 08:04 BMI result Body Mass Index 41.3 Tobacco/Smoking Status: Tobacco use Status Tobacco use date assessed 08/31/25 08/31/25 08:13 Patient Tobacco Use Status Never used Tobacco 08/31/25 08:13 e-Cigarette/Vaping Use Never Used 08/31/25 08:13 PHQ-9: PHQ-9 Score PHQ-9: Total score 0 09/10/25 23:45 Thrive Assessment: Date of Thrive Assessment Date Thrive assessed 01/18/25 08/31/25 08:13 Currently or been in a relationship where the following occur: No concerns reported Const General: no acute distress, alert and awake Orientation/consciousness: patient oriented x3 HENMT Ears: external ears normal General nose exam: Normal external nose present Face and sinus: Yes face symmetric Mouth: Normal oral and palatal mucosa present, oropharynx normal and moist mucous membranes Eyes General: appearance normal, both eyes and all related structures Neck Neck: Yes full ROM, Yes no lymphadenopathy and Yes supple Thyroid: Thyroid normal Resp Auscultation: clear to auscultation bilaterally Cardio Palpation: normal PMI Rate: regular rate Rhythm: regular rhythm Heart sounds: S1 normal heart sound present and S2 normal heart sound present GI Inspection: Yes normal to inspection and Yes Abdominal panniculus present Auscultation: normal bowel sounds General: Yes no CVA tenderness Back/Spine/Pelvis Back: no CVA tenderness and No back tenderness Skin General skin exam: no rashes or lesions noted Neuro General: patient oriented x3, gait normal, tone normal, moves all extremities, Normal light touch and pain sensation and no focal motor deficits Cranial nerves: Yes Normal hearing present Sensory Exam: No Sensory deficit (Neuro) Extrem General: Yes full ROM and Yes no joint enlargement Psych Appearance: grossly normal Mental Status: mental status grossly normal Speech and movement: Normal speech and movement present Affect: normal affect Results Reviewed Results Reviewed: RUN: 09/10/25 2592 PAGE 1 [facility] [address] [place] [id number] Laundry Aide: Pranay Gallardo M.D. Specimen Inquiry Name: Winter Duron Age/Sex: 65/F [facility] 1960 [id number] Unit#: [id number] Attend Dr: Olesya Fairbanks MD Re08/24/25 Status: DEP [facility]F [facility] Disch: SPEC : [id number] GAEL: 08/24/25 STATUS: COMP REQ : [id number] RECD: 08/24/[address]: Olseya Fairbanks MD COMP: 08/24/25 ENTERED: 08/24/[address]: ORDERED: Met Prof Fast, AST, ALT, Lipid Panel Test Result Flag Reference Sodium 142 135-145 mmol/L Potassium 4.6 3.3-5.1 mmol/L CL 108 96-108 mmol/L CO2 26 22-29 mmol/L Gap 13 12-20 BUN 24 H 9-16 mg/dL Creat 1.10 0.5-1.4 mg/dL eGFR 50 Chronic Kidney Disease: Estimated GFR < 60 mL/min/1.73m2 Severe Kidney Disease: Estimated GFR < 15 mL/min/1.73m2 FBS 99 60-99 mg/dL CA 9.3 # 8.4-10.2 mg/dL AST (GOT) 26 5-31 U/L ALT (GPT) 21 0-31 U/L Triglyceride 220 H <150 mg/dL Desirable Triglyceride: less than 150 mg/dL Borderline High Triglyceride 150-199 mg/dL High Triglyceride: 200-499 mg/dL Very High Triglyceride: greater than or equal to 5OO mg/dL Cholesterol 126 <200 mg/dL Desirable Cholesterol: less than 200 mg/dL Borderline High Cholesterol: 200-239 mg/dL High Cholesterol: greater than 239 mg/dL LDL Calculated 54 <100 mg/dL Desirable LDL: less than 100 mg/dL Near Optimal/Above Optimal LDL: 110-129 mg/dL Borderline High LDL: 130-159 mg/dL High LDL: 160-189 mg/dL Very High LDL: greater than or equal to 190 mg/dL HDL 28 L >40 mg/dL Desirable HDL: greater than 40 mg/dL Note: This HDL assay may give artificially low results in patients with liver disease. Laboratory Tests 08/24/25 11:27 Estimat Average Glucose 123 Hemoglobin A1c % 5.9 Coding Level of Care Code Est Pt Level 4 (90147) Diagnoses Type 2 diabetes mellitus without complication, without long-term current use of insulin E11.9 Hypertriglyceridemia E78.1 Essential hypertension I10 Assessment & Plan Assessment & Plan (1) Type 2 diabetes mellitus without complication, without long-term current use of insulin: Code(s): E11.9 - Type 2 diabetes mellitus without complications Category: Medical Plan: DIABETES MELLITUS WELL CONTROLLED WITH A1C AT 5.9% continued on metformin ER 500 mg once daily and Mounjaro 5 mg once a week. Reminded to get yearly diabetes eye exam for retinopathy screening. Up-to-date with her flu vaccine and COVID vaccine booster, and pneumonia vaccination. Prescription also given for glucometer, test strips and lancets, to check blood sugar levels once a day 3 to 4 times a week . Referred to nurse navigator with regards to diabetes teaching (2) Hypertriglyceridemia: Code(s): E78.1 - Pure hyperglyceridemia Category: Medical Plan: Reviewed recent fasting lipid profile with patient with normal LDL cholesterol but elevated triglycerides. . Continue fenofibrate 120 mg daily , in addition to adherence to low-cholesterol diet and regular exercise, at least 30 minutes 3 to 4 times a week. Advised patient to make healthy food choices, eat more fruits, vegetables, whole grains, wild caught fish and low-fat dairy. Limit amount of meat and fried or fatty food products, as well as processed foods and fast foods. Follow-up scheduled with repeat fasting lipid panel in 3 months. (3) Essential hypertension: Code(s): I10 - Essential (primary) hypertension Category: Medical Plan: Blood pressure at goal of less than 130/80. Continue with current medication. Reinforced importance of following a low sodium diet, getting regular exercise, and lowering stress levels. Medications: New Accu-Chek Anna Plus test strp (blood sugar diagnostic) Check fasting glucose once a day 50 ea 4RF NS E11.9 - Type 2 diabetes mellitus without complications lancets (Accu-Chek Fastclix Lancet Drum) Check fasting glucose once a day as directed 100 ea 1RF E11.9 - Type 2 diabetes mellitus without complications blood-glucose meter (Accu-Chek Guide Glucose Meter) Check fasting glucose once a day as directed 1 ea 0RF E11.9 - Type 2 diabetes mellitus without complications
== END 2025-08-31 09:02 | disposition home or self-care (01) ==
LOC: HO.HMCC 07:55
PROVIDERS: PCP Internal Medicine; Visit Provider Internal Medicine
DX: E11.9 Type 2 diabetes mellitus without complications (principal); E78.1 Pure hyperglyceridemia; I10 Essential (primary) hypertension